=== PATIENT | female | born 1965 | race Caucasian/White ===

== ENCOUNTER → 2019-01-06 11:42 | Outpatient (CLI) | payer OTHER, SELFPAY ==
--- NOTE | 2019-01-06 11:52 | XR_ITS ---
XR foot wt bearing LT 3V HISTORY: ITS.REASON: pain ORDERING PHYSICIAN: Taniya May DPM PATIENT AGE: 53 years COMPARISON: None FINDINGS: No fracture or dislocation. Mild pes planus. Small calcaneal spur. No lytic or blastic change. Minimal osteoarthritic change first MTP joint. IMPRESSION: Mild pes planus with minimal degenerative change first MTP joint
--- NOTE | 2019-01-06 11:52 | XR_ITS ---
XR foot wt bearing RT 3V HISTORY: ITS.REASON: pain ORDERING PHYSICIAN: Taniya May DPM PATIENT AGE: 53 years COMPARISON: None FINDINGS: There is mild pes planus. Moderate osteoarthritic changes are present at the first MTP joint with spurring along the distal aspect of the first metatarsal. Small calcaneal spur. Enthesophyte at the Achilles insertion. 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
== END ==
PROVIDERS: PCP Internal Medicine; Visit Provider Podiatrist
DX: M79.672 Pain in left foot (principal); M79.671 Pain in right foot
CPT/HCPCS: 73630

== ENCOUNTER → 2019-01-13 10:10 | Outpatient (CLI) | payer OTHER, SELFPAY ==
[2019-01-13 10:46] LABS: Basophils # 0.1 K/mm3 (0-0.2); Basophils % 1.1 % (0.1-2.0); Eosinophils # 0.2 K/mm3 (0.0-0.4); Eosinophils % 3.4 % (0.1-12.0); Hematocrit 43.6 % (37.0-47.0); Hemoglobin 14.4 g/dL (12.2-16.2); Lymphocytes # 2.2 K/mm3 (0.7-4.5); Lymphocytes % 32.8 % (10-50); Mean Corpuscular Hemoglobin 29.8 pg (27.0-31.2); Mean Corpuscular Volume 90.1 fl (81-99); Monocytes # 0.4 K/mm3 (0.1-1.0); Monocytes % 5.3 % (1.7-9.3); Neutrophils # 3.8 K/mm3 (1.8-7.8); Neutrophils % 57.3 % (37.0-80.0); Platelet Count 339 K/mm3 (142-424); Red Blood Count 4.84 M/mm3 (4.20-5.40); Red Cell Distribution Width 13.7 % (11.5-17.5); White Blood Count 6.6 K/mm3 (4.8-10.8)
[2019-01-13 11:32] LABS: Alanine Aminotransferase 38 U/L (12-78); Albumin/Globulin Ratio 1.1 (1.1-1.8); Alkaline Phosphatase 88 U/L (46-116); Anion Gap 13.7 mEq/L (5-15); Aspartate Amino Transferase 13 U/L (15-37); Bilirubin,Total 0.5 mg/dL (0.2-1.0); Blood Urea Nitrogen 14 mg/dL (7-18); Calcium 9.3 mg/dL (8.5-10.1); Carbon Dioxide 27 mmol/L (21.0-32.0); Chloride 104 mmol/L (98-107); Estimated Glomerular Filt Rate 74 ml/min (>60); GFR (African American) 90 ML/MIN (>60); Globulin 3.7 gm/dl (1.3-3.2); Glucose 99 mg/dL (74-106); Potassium 3.7 mmoL/L (3.5-5.1); Sodium 141 mmol/L (136-145); Total Protein,Serum 7.7 gm/dL (6.4-8.2)
[2019-01-13 11:35] LABS: Erythrocyte Sedimentation Rate 16 mm/hr (0-30)
[2019-01-13 15:42] LABS: C-Reactive Protein < 0.2 mg/L (0.0-0.9)
== END ==
PROVIDERS: Visit Provider Podiatrist
DX: M79.671 Pain in right foot (principal); L97.511 Non-pressure chronic ulcer of other part of right foot limited to breakdown of skin; M20.21 Hallux rigidus, right foot; Q82.5 Congenital non-neoplastic nevus
CPT/HCPCS: 36415; 80053; 85025; 85651; 86140

== ENCOUNTER → 2019-01-23 13:15 | Outpatient (CLI) | payer OTHER, SELFPAY ==
[2019-01-23 14:36] LABS: Erythrocyte Sedimentation Rate 11 mm/hr (0-30)
[2019-01-23 17:00] LABS: Uric Acid 4.7 mg/dL (2.6-7.2)
[2019-01-25 09:13] LABS: RA Latex Turbid. <10.0 IU/mL (0.0-13.9)
[2019-01-25 21:00] LABS: Antinuclear Antibodies, IFA Positive (.)
== END ==
PROVIDERS: Visit Provider Podiatrist
DX: M79.671 Pain in right foot (principal)
CPT/HCPCS: 36415; 84550; 85651; 86038; 86431

== ENCOUNTER → 2019-01-27 08:44 | Outpatient (CLI) | payer OTHER, SELFPAY ==
--- NOTE | 2019-01-27 08:47 | MR_ITS ---
MR foot RT wo/w con CLINICAL INDICATION: Ulcer on second toe lateral aspect ITS.REASON: PAIN AND ULCER ON RT FOOT ORDERING PHYSICIAN: Taniya May DPM PATIENT AGE: 53 years Comparison: 01/06/2019 TECHNIQUE: Routine multiplanar multiecho sequences are performed without and with gadolinium enhancement FINDINGS: Is mild generalized motion artifact which does obscure fine detail. No convincing evidence of osteomyelitis of the toes. No abscess or abnormal fluid collection. There are osteoarthritic changes of the tarsal bones. Small amount fluid is present in lateral aspect of the calcaneal cuboid joint. Small amount fluid is also present along the posterior talocalcaneal joint. There is increased T2 signal involving the distal and medial aspect of the fibula at the talofibular joint region. This does show some contrast enhancement. Etiology of this is uncertain No other significant anomalies are evident. IMPRESSION: 1. No evidence of osteomyelitis of the toes. 2. Mild osteoarthritic changes of the midfoot with small amount fluid along the talocalcaneal joint space posteriorly and the calcaneocuboid joint space laterally. 3. Increased T2 signal with enhancement involving the distal fibula medially. This area measures approximately 1.6 x 0.8 cm. Etiology is indeterminate may be due to an area of inflammation or infection. Neoplasm felt to be less likely but not entirely excluded. Consider radiographic correlation for further evaluation.
--- NOTE | 2019-01-27 09:51 | HMH.ITSHM ---
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 []ASPIRIN BUPROPION VERAPAMIL TRIAMTERENE
== END ==
PROVIDERS: PCP Internal Medicine; Visit Provider Podiatrist
DX: L97.511 Non-pressure chronic ulcer of other part of right foot limited to breakdown of skin (principal)
CPT/HCPCS: 73720; A9576

== ENCOUNTER → 2019-02-27 09:56 | Outpatient (CLI) | payer OTHER, SELFPAY ==
--- NOTE | 2019-02-27 09:58 | US_ITS ---
US extremity RT limited CLINICAL INDICATION: Swelling of the second toe ORDERING PHYSICIAN: Taniya May DPM PATIENT AGE: 53 years Comparison: None FINDINGS: The patient was scheduled for fine-needle last perforation under sonographic guidance for possible nodule involving the medial and plantar aspect of the second toe. The patient reports that the swelling has decreased since the prior MRI which showed the possible nodule. Ultrasound is performed of the second toe showing mild diffuse soft tissue swelling with diffuse increase vascularity but no definite nodule. Therefore, fine-needle aspiration was not performed. No abscess or abnormal fluid collection IMPRESSION: 1. No discrete nodule evident by ultrasound. 2. Mild diffuse soft tissue swelling with increased vascularity of the second toe suggesting hemangiomatous involvement
== END ==
PROVIDERS: PCP Internal Medicine; Visit Provider Podiatrist
DX: L97.511 Non-pressure chronic ulcer of other part of right foot limited to breakdown of skin (principal); D49.2 Neoplasm of unspecified behavior of bone, soft tissue, and skin
CPT/HCPCS: 76882

== ENCOUNTER 2021-04-12 14:32 | Inpatient (IN) | payer OTHER, SELFPAY ==
[2021-04-12 14:33] VITALS: BP 125/61; PULSE 114; RESP 18; TEMP 37.6; O2SAT 96; BMI 38.0
--- NOTE | 2021-04-12 14:49 | CT_ITS ---
PROCEDURE: CT ABDOMEN PELVIS W CON CLINICAL INDICATION: PAIN Lower abdominal pain with nausea COMPARISON: No exams were available for comparison TECHNIQUE: IV Contrast: 75ML Isovue 370 Oral Contrast None Axial images obtained with sagittal and coronal reformats. All CT scans at the facility use one or more dose reduction, viz: automated exposure control, ma/kV adjustment per patient size (including targeted exams where dose is matched to indication, i.e. head), or iterative reconstruction technique. FINDINGS: LOWER THORAX: 7 mm fissural nodule present in the right minor fissure. There are atelectatic changes in the lung bases. There is a 5 mm nodular opacity in the right lung base medially. A small lymph node is present anterior to the left hepatic lobe superiorly. ABDOMEN & PELVIS: Fatty liver. There is a small hyperdense nodule along the anterior aspect of the left hepatic lobe at approximately 8 mm. Mild hepatomegaly at 25 cm transverse slight increased density is present within the gallbladder possibly due to some underlying sludge. Borderline splenomegaly at 13 cm. The adrenal glands have an unremarkable appearance. There is diffuse pancreatic atrophy. Superior to the head of the pancreas posterior to the antrum of the stomach there is a asymmetric area of soft tissue prominence which is contiguous with the caudate lobe of the liver and may then represent some hypertrophy of the liver with fatty sparing. Cannot exclude the possibility of a mass in this region. MRI of the abdomen without and with gadolinium enhancement with hemangioma protocol suggested. This area measures 2.9 cm. There is a 7 mm nonobstructing stone in the lower pole of the left kidney. 4 mm cyst is present in the right kidney. No ureteral calculi. No hydronephrosis. There is diffuse small bowel dilatation beginning in the jejunum and extending distally to the right lower quadrant region where there is a apparent mass at thickened small bowel with some slight increased density within the mesenteric fat. A normal appendix is not identified. There is diffuse colonic diverticulosis. There is stranding of the pericolic fat in the right lower quadrant with a small amount of extra colic gas. There is an air-fluid level with a collection measuring approximately 4 x 3 cm in this region suspicious for a small abscess. Repeat exam with both IV and oral contrast is suggested. The uterus is enlarged with a lobulated contour with areas of coarse calcification consistent with fibroid involvement. No distal free air is evident. There is a small amount fluid in the left pericolic gutter No acute bony findings are apparent. IMPRESSION: 1. There is diffuse haziness of the peritoneal fat in the mid and lower abdomen. There is diffuse colonic diverticulosis with thickening of the sigmoid colon in the right mid lower pelvic region and stranding of the pericolic fat with a small amount loculated extra colic gas at this region along with a 3 x 4 cm fluid collection with air-fluid level consistent with acute diverticulitis with local contained perforation and a small Aletha diverticular abscess. Suggest repeat exam with both IV and oral contrast for confirmation of these findings. Multiple unopacified bowel loops are present which could obscure or mimic pathology. 2. Suspect partial small bowel obstruction. The small bowel is dilated to the region of the inflammatory changes in the right lower quadrant. There is fluid and gas within the large bowel. Ileus is also consideration. There are thickened small bowel loops in the right lower quadrant adjacent to the inflammatory process. 3. The appendix is not clearly delineated. 4. Apparent mass
[2021-04-12 14:51] LABS: Microscopic, Urine URINE MICROSCOPIC (MICROSCOPIC)
[2021-04-12 14:55] LABS: Appearance,Urine SL CLOUDY (Clear); Blood, Urine TRACE-I (Negative); Color,Urine ORANGE (Yellow); Glucose,Urine (UA) Negative (Negative); Ketones,Urine 1+ (Negative); Leukocyte Esterase,Urine Negative (Negative); Nitrate,Urine Negative (Negative); Protein,Urine 3+ (Negative); Specific Gravity, Urine >= 1.030 (1.005-1.030)
[2021-04-12 15:02] LABS: Alanine Aminotransferase 24 U/L (12-78); Albumin Level 4.2 g/dl (3.5-5.0); Albumin/Globulin Ratio 1.1 (1.1-1.8); Alkaline Phosphatase 114 U/L (38-126); Aspartate Amino Transferase 20 U/L (14-36); Bilirubin,Total 1.3 mg/dl (0.2-1.3); Blood Urea Nitrogen 22 mg/dl (7-17); Calcium 9.1 mg/dl (8.4-10.2); Carbon Dioxide 31 mmol/L (22.0-30.0); Creatinine Clearance Estimated 89 mL/min (50-200); Estimated Glomerular Filt Rate 57 ml/min (>60); GFR (African American) 69 ML/MIN (>60); Globulin 3.7 g/dL (1.3-3.2); Glucose 146 mg/dl (74-100); Lipase 13 U/L (23-300); Potassium 3.2 mmoL/L (3.5-5.1); Sodium 141 mmol/L (136-145); Total Protein,Serum 7.9 g/dl (6.3-8.2)
[2021-04-12 15:05] LABS: Bilirubin,Urine 1+ (Negative)
[2021-04-12 15:06] LABS: Bacteria,Urine Trace /lpf; Squamous Epithelial Cell,Urine Occasional #/hpf (0-5); WBC,Urine Occasional #/hpf (0-3)
[2021-04-12 15:09] LABS: Anion Gap 14.2 mEq/L (5-15); Chloride 99 mmol/L (98-107)
[2021-04-12 15:30] VITALS: BP 122/75; PULSE 100
--- NOTE | 2021-04-12 15:30 | HMH.EDGENADL ---
ED Disposition Clinical Impression: Acute diverticulitis, Ileus Abdominal mass Qualifiers: Abdominal location: epigastric Qualified Code(s): R19.06 - Epigastric swelling, mass or lump Disposition: Still a Patient Condition on Discharge: Fair Instructions: DI for Acute Abdominal Pain Referrals: Darnell Zimmerman [Primary Care Provider] - - Critical Care Critical Care Time: No Attestation: On 04/12/21, the high probability of a clinically significant, sudden or life threatening deterioration of the following system(s) required my full and direct attention, intervention and personal management. The time I documented below is in addition to time spent performing reported procedures but includes the following listed in this critical care notation. Medical Decision Making - Medical Records Medical records reviewed: Yes: I reviewed the patient's medical records. - [place] Inquiry Pt receiving controlled substance: No Vital Signs: 04/12/21 14:33 Temperature 99.7 F H Temperature Source Oral Pulse Rate [Radial] 114 H Respiratory Rate 18 Blood Pressure [Right Arm] 125/61 Blood Pressure Mean [Right Arm] 82 Blood Pressure Position [Right Arm] Sitting 02 Sat by Pulse Oximetry 96 Oxygen Delivery Method Room Air - Lab Data Lab Results 04/12/21 14:41: Urine Color [place], Urine Appearance Sl cloudy, Urine pH 6.0, Ur Specific [place] >= 1.030, Urine Protein 3+, Urine Glucose (UA) Negative, Urine Ketones 1+, Urine Blood Trace-i, Urine Nitrate Negative, Urine Bilirubin 1+ A, Urine Urobilinogen 1.0, Ur Leukocyte Esterase Negative, Urine RBC 5-10, Urine WBC Occasional, Ur Squamous Epith Cells Occasional, Urine Bacteria Trace 04/12/21 14:45: WBC 20.8 H*, RBC 5.15, Hgb 14.9, Hct 45.4, MCV 88.2, MCH 29.0, MCHC 32.9, RDW 14.1, Plt Count 332, MPV 8.2, Neut % (Auto) 89.7 H, Lymph % (Auto) 7.2 L, [place] % (Auto) 2.6, Eos % (Auto) 0.2, Baso % (Auto) 0.3, Neut # (Auto) 18.6 H, Lymph # (Auto) 1.5, [place] # (Auto) 0.5, Eos # (Auto) 0.0, Baso # (Auto) 0.1, Total Counted 100, Neutrophils % (Manual) 85 H, Lymphocytes % (Manual) 12, Monocytes % (Manual) 3, Platelet Estimate Normal, Hypochromasia 1+ 04/12/21 14:45: Sodium 141, Potassium 3.2 L, Chloride 99, Carbon Dioxide 31 H, Anion Gap 14.2, BUN 22 H, Creatinine 1.00, Estimated Creat Clear 89, Estimated GFR 57 L, Est GFR ( Amer) 69, Glucose 146 H, Calcium 9.1, Total Bilirubin 1.3, AST 20, ALT 24, Alkaline Phosphatase 114, Total Protein 7.9, Albumin 4.2, Globulin 3.7 H, Albumin/Globulin Ratio 1.1 04/12/21 14:45: Lipase 13 L Result diagrams: 04/12/21 14:45 04/12/21 14:45 Orders (Tests/Meds): ED MEDICATIONS Discontinued Medications Generic Name Dose Route Start Last Admin Trade Name Freq PRN Reason Stop Dose Admin Hydromorphone HCl 1 mg 04/12/21 15:05 04/12/21 15:06 Hydromorphone 2mg/Ml Syringe IV 04/12/21 15:06 1 mg ONCE ONE Administration Sodium Chloride 1,000 mls @ 999 mls/hr 04/12/21 15:00 04/12/21 14:55 Sod Chlor 0.9% 1000ml Bag IV 04/12/21 16:00 999 mls/hr .Q1H1M [place] Administration Iopamidol 75 ml 04/12/21 16:00 04/12/21 16:01 Iopamidol-370 (76%);100ml Bottle IV 04/12/21 16:01 75 ml ONCE ONE Administration Ondansetron HCl 4 mg 04/12/21 14:50 04/12/21 14:55 Ondansetron 4mg/2ml Vial IV 04/12/21 14:51 4 mg ONCE ONE Administration Sodium Chloride 10 ml 04/12/21 16:00 04/12/21 16:01 Sodium Chloride 0.9% 10ml Syr (Rad Only) IV 04/12/21 16:01 10 ml ONCE ONE Administration ORDERS Category Date Time Status Covid-19 Nasal PCR ([facility]) Routine Lab 04/12/21 17:09 Ordered - CT Data CT Scan: Abdomen Time Received: 16:[address] Reviewed: Yes: I have viewed the radiologist's interpretation Preliminary Findings: Abnormal Findings Narrative: Acute diverticulitis with 3 x 4 collection of contained abscess along the sigmoid colon. Partial small bowel obstruction versus ileus with an undifferentiated mass near the pancreatic h
[2021-04-12 15:35] LABS: Basophils # 0.1 K/mm3 (0-0.2); Basophils % 0.3 % (0.1-2.0); Eosinophils % 0.2 % (0.1-12.0); Hematocrit 45.4 % (37.0-47.0); Hemoglobin 14.9 g/dL (12.2-16.2); Lymphocytes # 1.5 K/mm3 (0.7-4.5); Lymphocytes % 7.2 % (10-50); Mean Corpuscular HGB Conc 32.9 g/dL (31.8-35.4); Mean Corpuscular Volume 88.2 fl (81-99); Mean Platelet Volume 8.2 fl (7.4-10.4); Monocytes # 0.5 K/mm3 (0.1-1.0); Monocytes % 2.6 % (1.7-9.3); Neutrophils # 18.6 K/mm3 (1.8-7.8); Neutrophils % 89.7 % (37.0-80.0); Platelet Count 332 K/mm3 (142-424); Red Blood Count 5.15 M/mm3 (4.20-5.40); Red Cell Distribution Width 14.1 % (11.5-17.5); White Blood Count 20.8 K/mm3 (4.8-10.8)
[2021-04-12 15:41] LABS: MANUAL DIFFERENTIAL MANUAL DIFFERENTIAL (MANUAL DIFF)
[2021-04-12 16:13] LABS: Lymphocytes % 12 % (10-50); Monocytes % 3 % (2-9); Neutrophils % 85 % (42-76); Total Cells Counted 100
[2021-04-12 16:14] LABS: Hypochromasia 1+; Platelet Estimate Normal
[2021-04-12 16:30] VITALS: BP 127/61; PULSE 92
--- NOTE | 2021-04-12 16:52 | PC.NURSE ---
DR COPE PAGED
--- NOTE | 2021-04-12 16:54 | PC.NURSE ---
DR ZMAAN SPEAKING WITH DR COPE ,HE HAS AGREED TO ADMIT PT
[2021-04-12 17:00] VITALS: BP 119/61; PULSE 92; O2SAT 94
--- NOTE | 2021-04-12 17:11 | PC.NURSE ---
Dr Vazquez spoke with Dr Castellon for admission
--- NOTE | 2021-04-12 17:14 | PC.NURSE ---
bed assignment requested, room 209. all staff notified
[2021-04-12 17:44] LABS: Coronavirus 19, PCR Not Detected (NotDetected); Influenza A, PCR Not Detected (NotDetected); Influenza B, PCR Not Detected (NotDetected)
[2021-04-12 18:21] LABS: Lactic Acid 1.1 mmol/L (0.7-2.1)
--- NOTE | 2021-04-12 18:31 | PC.NURSE ---
REPORT CALLED TO FLOOR
--- NOTE | 2021-04-12 19:34 | PC.NURSE ---
This RN received report on pt. Pt isnt to floor yet at this time. Report was given to Cara Flores RN and Daron Lane RN.
[2021-04-12 19:40] VITALS: BP 121/78; PULSE 89; RESP 18; TEMP 36.9; O2SAT 95
--- NOTE | 2021-04-12 19:43 | PC.NURSE ---
PT ARRIVED TO FLOOR VIA W/C FROM ED W/STAFF AT 194
[2021-04-12 20:00] VITALS: BP 113/68; PULSE 102; RESP 16; TEMP 37.3; O2SAT 93; BMI 38.3
[2021-04-12 22:14] LABS: POC Glucose,Bedside 125 (70-110)
--- NOTE | 2021-04-12 23:36 | P.CONPHA_ITS ---
[facility] Pharmacy VTE Monitoring - Patient Demographics Admission date: 04/12/21 Report Date: 04/12/21 Time: 23:36 Allergies/Adverse Reactions: Patient Allergies ALLISON Inhibitors Allergy (Verified 02/17/19 15:03) Height: 1.55 m Weight: 92.079 kg Patient Problems: Current Active Problems Acute diverticulitis (Acute) Ileus (Acute) Abdominal mass (Acute) - VTE Risk Labs: VTE Related Lab Results Hgb 14.9 g/dL (12.2-16.2) 04/12/21 14:45 Hct 45.4 % (37.0-47.0) 04/12/21 14:45 Plt Count 332 K/mm3 (142-424) 04/12/21 14:45 BUN 22 mg/dl (7-17) H 04/12/21 14:45 Creatinine 1.00 mg/dl (0.52-1.04) 04/12/21 14:45 Estimated Creat Clear 89 mL/min (50-200) 04/12/21 14:45 Was VTE Risk Assessment Performed: Yes VTE Score: 1 VTE Risk Level: Very Low Risk Clinical Trial Participant: No - Prophylaxis VTE Prophylaxis Ordered?: Yes Types of VTE Prophylaxis: TEDS Knee High, Pharmacological Pharmacologic Type: Enoxaparin
--- NOTE | 2021-04-12 23:38 | HMH.PHAINT ---
verified home medication list using list from [facility] outpatient pharmacy
[2021-04-13] VITALS (8 sets, daily range): BP systolic 113–133; BP diastolic 62–87; PULSE 90–127; RESP 16–20; TEMP 36.8–39.1; O2SAT 90–96; BMI 37.8
--- NOTE | 2021-04-13 05:04 | PC.NURSE ---
Patient is alert & oriented x4. Patient has been pleasant this shift. She has rested well. She had complaints of abdominal pain upon coming to the floor around 2130 and was treated per medication order. Patient bowel sounds are active and reports diarrhea the previous day. At 0400 the SRNA reported a temperature of 102 and patient was tachycardic with a HR of 127. Patient was given Tylenol per orders. Patient temperature rechecked to read 100.2. Call light within reach, will continue to monitor.
[2021-04-13 06:17] LABS: POC Glucose,Bedside 124 (70-110)
--- NOTE | 2021-04-13 07:12 | HMH.GSCON ---
*Admission Date: 04/12/21 *Reason for consult:: Diverticulitis and ileus *History of present illness: Patient is a 55-year-old white female. She has no prior history of diverticulitis. She states that on 04/10/2021 she developed relatively diffuse lower abdominal pain. This persisted and progressed in severity. She therefore presented to the emergency department yesterday afternoon. Work-up revealed leukocytosis. She underwent CT scan of the abdomen and pelvis which revealed findings most consistent with diverticulitis with 3 cm abscess. She also had findings of ileus. Of note, there was an incidental finding of mass superior to the pancreatic head which may emanate from the caudate lobe of the liver. Nonemergent MRI was suggested by radiology. Since admission patient states that she does feel somewhat better. Review of Systems - Review of Systems Review of systems:: pertinent systems reviewed and negative unless documented below [facility] History I have reviewed the patient's past medical history: Yes Medical History: Reports:: Hypertension *Have you ever received a pneumonia vaccine?: No *Have you received a flu vaccine this season?: Yes Other Medical History: Reports: Sinus Problems Laterality Cases: Bilateral: Tonsillectomy Other Surgeries: Yes: Sinus Surgery - *Social History Smoking Status: Never smoker Alcohol Intake: never Alcohol Intake Frequency:: other *Occupational Status:: retired *Travel in the last 8 weeks: None Family Hx:: Hypertension Meds Home Medications Medication Instructions Recorded Confirmed Type aspirin 81 mg tablet,delayed 81 mg PO DAILY 01/13/19 04/12/21 History release bupropion HCl 150 mg tablet,12 hr 150 mg PO BID #180 each 01/13/19 04/12/21 History sustained-release Naproxen [Naproxen 500mg tab] 500 mg PO BIDP PRN 04/12/21 04/12/21 History Triamterene/Hydrochlorothiazid 1 each PO DAILY 04/12/21 04/12/21 History [Dyazide 37.5-25 Capsule] Verapamil HCl [Verapamil ER] 240 mg PO DAILY 04/12/21 04/12/21 History Allergies Allergy/AdvReac Type Severity Reaction Status Date / Time ALLISON Inhibitors Allergy Verified 02/17/19 15:03 Exam Vital signs and Labs for Last 24 Hours: Temp Pulse Resp BP Pulse Ox 100.2 F H 127 H 16 130/76 90 L 04/13/21 05:09 04/13/21 04:00 04/13/21 04:00 04/13/21 04:00 04/13/21 04:00 Laboratory Results - last 24 hr 04/12/21 14:41: Urine Color [place], Urine Appearance Sl cloudy, Urine pH 6.0, Ur Specific [place] >= 1.030, Urine Protein 3+, Urine Glucose (UA) Negative, Urine Ketones 1+, Urine Blood Trace-i, Urine Nitrate Negative, Urine Bilirubin 1+ A, Urine Urobilinogen 1.0, Ur Leukocyte Esterase Negative, Urine RBC 5-10, Urine WBC Occasional, Ur Squamous Epith Cells Occasional, Urine Bacteria Trace 04/12/21 14:45: WBC 20.8 H*, RBC 5.15, Hgb 14.9, Hct 45.4, MCV 88.2, MCH 29.0, MCHC 32.9, RDW 14.1, Plt Count 332, MPV 8.2, Neut % (Auto) 89.7 H, Lymph % (Auto) 7.2 L, [place] % (Auto) 2.6, Eos % (Auto) 0.2, Baso % (Auto) 0.3, Neut # (Auto) 18.6 H, Lymph # (Auto) 1.5, [place] # (Auto) 0.5, Eos # (Auto) 0.0, Baso # (Auto) 0.1, Total Counted 100, Neutrophils % (Manual) 85 H, Lymphocytes % (Manual) 12, Monocytes % (Manual) 3, Platelet Estimate Normal, Hypochromasia 1+ 04/12/21 14:45: Sodium 141, Potassium 3.2 L, Chloride 99, Carbon Dioxide 31 H, Anion Gap 14.2, BUN 22 H, Creatinine 1.00, Estimated Creat Clear 89, Estimated GFR 57 L, Est GFR ( Amer) 69, Glucose 146 H, Calcium 9.1, Total Bilirubin 1.3, AST 20, ALT 24, Alkaline Phosphatase 114, Total Protein 7.9, Albumin 4.2, Globulin 3.7 H, Albumin/Globulin Ratio 1.1 04/12/21 14:45: Lipase 13 L 04/12/21 17:20: Lactate 1.1 04/12/21 17:27: SARS-CoV-2 (PCR) Not detected, Influenza A Untype (PCR) Not detected, Influenza Type B (PCR) Not detected 04/12/21 22:05: POC Glucose 125 H 04/13/21 06:10: POC Glucose 124 H I & O for Last 24 hours: Intake & Output 04/10/21 04/11/21 04/12/21 04/13/21 11:59 11
[2021-04-13 07:15] LABS: Anion Gap 10.9 mEq/L (5-15); Blood Urea Nitrogen 25 mg/dl (7-17); Calcium 8.7 mg/dl (8.4-10.2); Carbon Dioxide 30 mmol/L (22.0-30.0); Chloride 104 mmol/L (98-107); Creatinine Clearance Estimated 89 mL/min (50-200); Estimated Glomerular Filt Rate 57 ml/min (>60); GFR (African American) 69 ML/MIN (>60); Glucose 138 mg/dl (74-100); Sodium 142 mmol/L (136-145)
[2021-04-13 07:17] LABS: Potassium 2.9 mmoL/L (3.5-5.1)
--- NOTE | 2021-04-13 07:21 | PC.NURSE ---
[place] from lab called with a critical potassium of 2.9 Name and verified x2 Dr. Castellon paged and waiting for call back.
[2021-04-13 07:55] LABS: Basophils # 0.1 K/mm3 (0-0.2); Basophils % 0.3 % (0.1-2.0); Eosinophils % 0.1 % (0.1-12.0); Hematocrit 42.5 % (37.0-47.0); Hemoglobin 13.6 g/dL (12.2-16.2); Lymphocytes # 1.2 K/mm3 (0.7-4.5); Lymphocytes % 6.6 % (10-50); Mean Corpuscular Hemoglobin 28.5 pg (27.0-31.2); Mean Corpuscular Volume 89.2 fl (81-99); Mean Platelet Volume 8.3 fl (7.4-10.4); Monocytes # 0.7 K/mm3 (0.1-1.0); Monocytes % 3.7 % (1.7-9.3); Neutrophils # 16.4 K/mm3 (1.8-7.8); Neutrophils % 89.2 % (37.0-80.0); Platelet Count 295 K/mm3 (142-424); Red Blood Count 4.77 M/mm3 (4.20-5.40); Red Cell Distribution Width 14.1 % (11.5-17.5); White Blood Count 18.4 K/mm3 (4.8-10.8)
[2021-04-13 08:20] LABS: MANUAL DIFFERENTIAL MANUAL DIFFERENTIAL (MANUAL DIFF)
[2021-04-13 08:41] LABS: Lymphocytes % 7 % (10-50); Monocytes % 5 % (2-9); Neutrophils % 88 % (42-76); Nucleated Red Blood Cells 1; Total Cells Counted 100
[2021-04-13 08:42] LABS: Hypochromasia 1+; Macrocytosis 1+; Platelet Estimate Normal
[2021-04-13 12:06] LABS: Amylase 40 U/L (30-110); Lipase 11 U/L (23-300)
--- NOTE | 2021-04-13 12:30 | HMH.HP ---
*Admission Date: 04/12/21 *Chief complaint: Abd Pain *History of present illness: 55-year-old female who presents with diffuse abdominal pain nausea vomiting and diarrhea for several days. Patient is white blood cell count greater than 20,[address] scan demonstrates concern for contained perforation diverticulitis of the sigmoid colon. She also has partial small bowel stricture versus ileus and with no history of hernia or abdominal surgeries suspect that this is an ileus due to the inflammation. She also has evidence of a mass near the head of the pancreas which will need further imaging. This was discussed with Dr. Fernandez who agreed to consult surgically with medical admission and recommended conservative management at this time with bowel rest and IV Zosyn. Patient was discussed with Dr. Castellon who agreed to admit the patient for further management (Per Dr. Vazquez). 04/12/21 Abd/Pelvis CT: FINDINGS: LOWER THORAX: 7 mm fissural nodule present in the right minor fissure. There are atelectatic changes in the lung bases. There is a 5 mm nodular opacity in the right lung base medially. A small lymph node is present anterior to the left hepatic lobe superiorly. ABDOMEN & PELVIS: Fatty liver. There is a small hyperdense nodule along the anterior aspect of the left hepatic lobe at approximately 8 mm. Mild hepatomegaly at 25 cm transverse slight increased density is present within the gallbladder possibly due to some underlying sludge. Borderline splenomegaly at 13 cm. The adrenal glands have an unremarkable appearance. There is diffuse pancreatic atrophy. Superior to the head of the pancreas posterior to the antrum of the stomach there is a asymmetric area of soft tissue prominence which is contiguous with the caudate lobe of the liver and may then represent some hypertrophy of the liver with fatty sparing. Cannot exclude the possibility of a mass in this region. MRI of the abdomen without and with gadolinium enhancement with hemangioma protocol suggested. This area measures 2.9 cm. There is a 7 mm nonobstructing stone in the lower pole of the left kidney. 4 mm cyst is present in the right kidney. No ureteral calculi. No hydronephrosis. There is diffuse small bowel dilatation beginning in the jejunum and extending distally to the right lower quadrant region where there is a apparent mass at thickened small bowel with some slight increased density within the mesenteric fat. A normal appendix is not identified. There is diffuse colonic diverticulosis. There is stranding of the pericolic fat in the right lower quadrant with a small amount of extra colic gas. There is an air-fluid level with a collection measuring approximately 4 x 3 cm in this region suspicious for a small abscess. Repeat exam with both IV and oral contrast is suggested. The uterus is enlarged with a lobulated contour with areas of coarse calcification consistent with fibroid involvement. No distal free air is evident. There is a small amount fluid in the left pericolic gutter No acute bony findings are apparent. IMPRESSION: 1. There is diffuse haziness of the peritoneal fat in the mid and lower abdomen. There is diffuse colonic diverticulosis with thickening of the sigmoid colon in the right mid lower pelvic region and stranding of the pericolic fat with a small amount loculated extra colic gas at this region along with a 3 x 4 cm fluid collection with air-fluid level consistent with acute diverticulitis with local contained perforation and a small Aletha diverticular abscess. Suggest repeat exam with both IV and oral contrast for confirmation of these findings. Multiple unopacified bowel loops are present which could obscure or mimic pathology. 2. Suspect partial small bowel obstruction. The small bowel is dilated to the region of the inflammatory changes in the right lower quadrant. There is fluid and gas within
[2021-04-13 14:14] LABS: POC Glucose,Bedside 112 (70-110)
--- NOTE | 2021-04-13 14:17 | PC.NURSE ---
patient has done okay this shift. some complaints of pain and has been medicated per mar. some nausea this morning that resolved after zofran. she has been using swabs to wet mouth, family has been in and out. has been resting. remains tender to abdomen. no other complaints. noted. vitals stable
[2021-04-13 22:39] LABS: POC Glucose,Bedside 132 (70-110)
[2021-04-14] VITALS (9 sets, daily range): BP systolic 110–129; BP diastolic 67–74; PULSE 63–92; RESP 16–18; TEMP 36.3–37.1; O2SAT 91–96; BMI 37.8
--- NOTE | 2021-04-14 04:21 | PC.NURSE ---
pt alert and oriented. vss. iv patent and infusing. pt states pain has improved some since admission. call light in reach. will continue to monitor
[2021-04-14 05:00] LABS: POC Glucose,Bedside 141 (70-110)
[2021-04-14 05:50] LABS: Basophils % 0.2 % (0.1-2.0); Hematocrit 37.7 % (37.0-47.0); Lymphocytes % 5.6 % (10-50); Mean Corpuscular HGB Conc 32.4 g/dL (31.8-35.4); Mean Corpuscular Hemoglobin 29.2 pg (27.0-31.2); Mean Corpuscular Volume 90.2 fl (81-99); Mean Platelet Volume 8.1 fl (7.4-10.4); Monocytes # 0.5 K/mm3 (0.1-1.0); Monocytes % 2.6 % (1.7-9.3); Neutrophils % 91.5 % (37.0-80.0); Platelet Count 276 K/mm3 (142-424); Red Blood Count 4.18 M/mm3 (4.20-5.40); Red Cell Distribution Width 14.3 % (11.5-17.5); White Blood Count 17.5 K/mm3 (4.8-10.8)
[2021-04-14 05:53] LABS: MANUAL DIFFERENTIAL MANUAL DIFFERENTIAL (MANUAL DIFF)
[2021-04-14 05:56] LABS: Anion Gap 10.2 mEq/L (5-15); Blood Urea Nitrogen 26 mg/dl (7-17); Calcium 8.7 mg/dl (8.4-10.2); Carbon Dioxide 28 mmol/L (22.0-30.0); Chloride 109 mmol/L (98-107); Creatinine Clearance Estimated 111 mL/min (50-200); Estimated Glomerular Filt Rate 74 ml/min (>60); GFR (African American) 89 ML/MIN (>60); Glucose 155 mg/dl (74-100); Hemoglobin 12.2 g/dL (12.2-16.2); Potassium 4.2 mmoL/L (3.5-5.1); Sodium 143 mmol/L (136-145)
[2021-04-14 06:29] LABS: Hypochromasia 1+; Lymphocytes % 1 % (10-50); Monocytes % 3 % (2-9); Neutrophils % 96 % (42-76); Platelet Estimate Normal; Total Cells Counted 100
--- NOTE | 2021-04-14 07:22 | HMH.GSPN ---
Subjective Patient reports: feels better, still having pain, pain is less Progress Note: A&P (1) Abdominal mass Status: Acute (2) Acute diverticulitis Status: Acute Assessment and plan: Overall, doing well with current antibiotic therapy. Continue antibiotics Clear liquids cautiously (no carbonation) (3) Ileus Status: Acute (4) Leukocytosis Status: Acute (5) Hypokalemia Status: Acute Exam Vital signs and Labs for Last 24 Hours: Temp Pulse Resp BP Pulse Ox 98 F 76 18 128/72 95 04/14/21 04:00 04/14/21 04:00 04/14/21 04:47 04/14/21 04:00 04/14/21 04:00 Laboratory Results - last 24 hr 04/13/21 06:35: WBC 18.4 H, RBC 4.77, Hgb 13.6, Hct 42.5, MCV 89.2, MCH 28.5, MCHC 32.0, RDW 14.1, Plt Count 295, MPV 8.3, Neut % (Auto) 89.2 H, Lymph % (Auto) 6.6 L, [place] % (Auto) 3.7, Eos % (Auto) 0.1, Baso % (Auto) 0.3, Neut # (Auto) 16.4 H, Lymph # (Auto) 1.2, [place] # (Auto) 0.7, Eos # (Auto) 0.0, Baso # (Auto) 0.1, Total Counted 100, Neutrophils % (Manual) 88 H, Lymphocytes % (Manual) 7 L, Monocytes % (Manual) 5, Nucleated RBCs 1, Platelet Estimate Normal, Hypochromasia 1+, Macrocytosis 1+ 04/13/21 06:35: Amylase 40, Lipase 11 L 04/13/21 13:03: POC Glucose 112 H 04/13/21 19:56: POC Glucose 132 H 04/14/21 04:49: POC Glucose 141 H 04/14/21 05:28: WBC 17.5 H, RBC 4.18 L, Hgb 12.2 D, Hct 37.7, MCV 90.2, MCH 29.2, MCHC 32.4, RDW 14.3, Plt Count 276, MPV 8.1, Neut % (Auto) 91.5 H, Lymph % (Auto) 5.6 L, [place] % (Auto) 2.6, Eos % (Auto) 0.0 L, Baso % (Auto) 0.2, Neut # (Auto) 16.0 H, Lymph # (Auto) 1.0, [place] # (Auto) 0.5, Eos # (Auto) 0.0, Baso # (Auto) 0.0, Total Counted 100, Neutrophils % (Manual) 96 H, Lymphocytes % (Manual) 1 L, Monocytes % (Manual) 3, Platelet Estimate Normal, RBC Morphology Not Reportable, Hypochromasia 1+ 04/14/21 05:28: Sodium 143, Potassium 4.2 D, Chloride 109 H, Carbon Dioxide 28, Anion Gap 10.2, BUN 26 H, Creatinine 0.80, Estimated Creat Clear 111, Estimated GFR 74, Est GFR ( Amer) 89 D, Glucose 155 H, Calcium 8.7 I & O for Last 24 hours: Intake & Output 04/11/21 04/12/21 04/13/21 04/14/21 11:59 11:59 11:59 11:59 Intake Total 0 2138 Balance 0 / 0 2138 Weight 200 lb 4 oz 200 lb 1 oz - Constitutional no acute distress - *Routine Respiratory Exam Absent: respiratory distress - *Routine Cardiovascular Exam Present: RRR - *Routine Abdominal Exam Present: soft, tenderness ((Improved))
--- NOTE | 2021-04-14 09:21 | HMH.ACPN2 ---
Internal Medicine - PN: Subj *Date: 04/14/21 *Time: 13:06 Interval history: 55-year-old female patient sitting up in bed resting quietly, at bedside. She reports she has less abdominal tenderness today than yesterday and is actually feeling a little better. We will advance to clears today and see how she tolerates. Exam Vital signs and Labs for Last 24 Hours: Temp Pulse Resp BP Pulse Ox 98.5 F 74 18 124/74 91 L 04/14/21 08:00 04/14/21 08:00 04/14/21 08:00 04/14/21 08:00 04/14/21 08:00 Laboratory Results - last 24 hr 04/13/21 06:35: Amylase 40, Lipase 11 L 04/13/21 13:03: POC Glucose 112 H 04/13/21 19:56: POC Glucose 132 H 04/14/21 04:49: POC Glucose 141 H 04/14/21 05:28: WBC 17.5 H, RBC 4.18 L, Hgb 12.2 D, Hct 37.7, MCV 90.2, MCH 29.2, MCHC 32.4, RDW 14.3, Plt Count 276, MPV 8.1, Neut % (Auto) 91.5 H, Lymph % (Auto) 5.6 L, [place] % (Auto) 2.6, Eos % (Auto) 0.0 L, Baso % (Auto) 0.2, Neut # (Auto) 16.0 H, Lymph # (Auto) 1.0, [place] # (Auto) 0.5, Eos # (Auto) 0.0, Baso # (Auto) 0.0, Total Counted 100, Neutrophils % (Manual) 96 H, Lymphocytes % (Manual) 1 L, Monocytes % (Manual) 3, Platelet Estimate Normal, RBC Morphology Not Reportable, Hypochromasia 1+ 04/14/21 05:28: Sodium 143, Potassium 4.2 D, Chloride 109 H, Carbon Dioxide 28, Anion Gap 10.2, BUN 26 H, Creatinine 0.80, Estimated Creat Clear 111, Estimated GFR 74, Est GFR ( Amer) 89 D, Glucose 155 H, Calcium 8.7 I & O for Last 24 hours: Intake & Output 04/11/21 04/12/21 04/13/21 04/14/21 23:59 23:59 23:59 23:59 Intake Total 1174 / 1174 965 / 965 Balance 1174 / 1174 965 / 965 Weight 203 lb 200 lb 9.93 oz 200 lb 1 oz - Constitutional no acute distress - *Routine HEENT Exam Head: Present: normocephalic Eye: Present: EOMI ENT: Present: mucous membranes moist - *Routine Neck Exam Present: trachea midline. Absent: tracheal deviation - *Routine Respiratory Exam Present: CTA bilaterally. Absent: accessory muscle use - *Routine Cardiovascular Exam Present: RRR - *Routine Abdominal Exam Present: soft, normoactive bowel sounds, tenderness. Absent: firm Comments: Epigastric tenderness - *Routine Extremities Exam Present: full ROM, pulses intact. Absent: cyanosis, clubbing, edema, calf tenderness - *Routine Skin Exam Present: intact, dry, warm. Absent: cyanosis, erythema - *Routine Neurological Exam Present: alert, oriented X3. Absent: motor deficit, altered mental status - Routine Psychiatric Exam Present: normal affect, normal thought process. Absent: auditory hallucinations, visual hallucinations Assessment and Plan (1) Abdominal mass Status: Acute Qualifiers: Abdominal location: epigastric Qualified Code(s): R19.06 - Epigastric swelling, mass or lump Category: Medical Code(s): R19.00 - Intra-abdominal and pelvic swelling, mass and lump, unspecified site (2) Acute diverticulitis Status: Acute Category: Medical Code(s): K57.92 - Diverticulitis of intestine, part unspecified, without perforation or abscess without bleeding (3) Ileus Status: Acute Category: Medical Code(s): K56.7 - Ileus, unspecified (4) Leukocytosis Status: Acute Category: Medical Code(s): D72.829 - Elevated white blood cell count, unspecified (5) Hypokalemia Status: Acute Category: Medical Code(s): E87.6 - Hypokalemia - Assessment and plan all Dx Assessment and Plan for all problems:: Rounded with Dr. Castellon, all orders per Dr. Castellon: 1. We will advance diet to clears 2. We will continue current medical regimen
--- NOTE | 2021-04-14 19:54 | PC.NURSE ---
Pt has done well this shift. Ambulated in hallway this afternoon, tolerated activity well. Was medicated tonight for abdominal pain rating 7/10 and nausea, per MAR. Tolerating clear liquid tray, no complaints. Currently sitting up in bed visiting w .
[2021-04-14 20:46] LABS: POC Glucose,Bedside 124 (70-110)
[2021-04-15] VITALS (8 sets, daily range): BP systolic 109–128; BP diastolic 68–83; PULSE 60–70; RESP 16–20; TEMP 36.7–37.1; O2SAT 93–95; BMI 39.1
--- NOTE | 2021-04-15 03:48 | PC.NURSE ---
shift summary pt is alert and oriented X4. lung sounds are clear with sats maintained 90% or above on room air. pt has had no complaints. pt denies any pain, nausea, vomiting, or diarrhea. no acute changes will continue to monitor.
--- NOTE | 2021-04-15 07:18 | HMH.GSPN ---
Subjective Narrative: Patient states that she feels much better. She is tolerating clear liquids. She still does have some pain with ambulation. Progress Note: A&P (1) Abdominal mass Status: Acute (2) Acute diverticulitis Status: Acute (3) Ileus Status: Acute (4) Leukocytosis Status: Acute (5) Hypokalemia Status: Acute Assessment and Plan for All Diagnoses:: Continue current medical management for now. Exam Vital signs and Labs for Last 24 Hours: Temp Pulse Resp BP Pulse Ox 98.1 F 68 16 115/69 93 L 04/15/21 04:00 04/15/21 04:00 04/15/21 04:00 04/15/21 04:00 04/15/21 04:00 Laboratory Results - last 24 hr 04/14/21 17:50: POC Glucose 124 H I & O for Last 24 hours: Intake & Output 04/12/21 04/13/21 04/14/21 04/15/21 11:59 11:59 11:59 11:59 Intake Total 0 / 0 2259 / 2259 720 / 720 Balance 0 / 0 2259 / 2259 720 / 720 Weight 200 lb 4 oz 200 lb 1 oz 207 lb 3 oz Microbiology Reports for the Last 24 Hours: Microbiology 04/12/21 17:20 Blood Blood Culture - Preliminary NO GROWTH AFTER 48 HOURS 04/12/21 17:20 Blood Blood Culture - Preliminary NO GROWTH AFTER 48 HOURS - *Routine Abdominal Exam Present: soft Comments: Mild to moderate tenderness right lower quadrant.
[2021-04-15 07:36] LABS: Basophils % 0.2 % (0.1-2.0); Eosinophils % 0.1 % (0.1-12.0); Hematocrit 35.9 % (37.0-47.0); Hemoglobin 11.8 g/dL (12.2-16.2); Lymphocytes # 1.2 K/mm3 (0.7-4.5); Lymphocytes % 7.6 % (10-50); Mean Corpuscular HGB Conc 32.8 g/dL (31.8-35.4); Mean Corpuscular Hemoglobin 28.7 pg (27.0-31.2); Mean Corpuscular Volume 87.4 fl (81-99); Mean Platelet Volume 8.5 fl (7.4-10.4); Monocytes # 0.5 K/mm3 (0.1-1.0); Monocytes % 3.1 % (1.7-9.3); Neutrophils # 14.1 K/mm3 (1.8-7.8); Neutrophils % 89.1 % (37.0-80.0); Platelet Count 306 K/mm3 (142-424); Red Blood Count 4.11 M/mm3 (4.20-5.40); Red Cell Distribution Width 14.3 % (11.5-17.5); White Blood Count 15.8 K/mm3 (4.8-10.8)
[2021-04-15 07:38] LABS: MANUAL DIFFERENTIAL MANUAL DIFFERENTIAL (MANUAL DIFF)
[2021-04-15 07:52] LABS: Anion Gap 11.3 mEq/L (5-15); Blood Urea Nitrogen 26 mg/dl (7-17); Calcium 8.6 mg/dl (8.4-10.2); Carbon Dioxide 27 mmol/L (22.0-30.0); Chloride 107 mmol/L (98-107); Creatinine Clearance Estimated 115 mL/min (50-200); Estimated Glomerular Filt Rate 74 ml/min (>60); GFR (African American) 89 ML/MIN (>60); Glucose 116 mg/dl (74-100); Potassium 3.3 mmoL/L (3.5-5.1); Sodium 142 mmol/L (136-145)
[2021-04-15 08:09] LABS: Lymphocytes % 13 % (10-50); Monocytes % 3 % (2-9); Neutrophils % 84 % (42-76); Platelet Estimate Normal; RBC Morphology Normal; Total Cells Counted 100
--- NOTE | 2021-04-15 09:18 | HMH.ACPN2 ---
Internal Medicine - PN: Subj *Date: 04/15/21 *Time: 14:15 Interval history: 55-year-old female patient resting in bed quietly, at bedside. She reports she feels better today than yesterday abdomen less tender today. She does report flatus but no bowel movement. She reports she was not up in the room very much yesterday but will attempt to be up and ambulating more today. She is tolerating liquids without any nausea. White blood cell count trending down Exam Vital signs and Labs for Last 24 Hours: Temp Pulse Resp BP Pulse Ox 98.6 F 66 18 128/83 93 L 04/15/21 08:00 04/15/21 08:00 04/15/21 08:00 04/15/21 08:00 04/15/21 08:00 Laboratory Results - last 24 hr 04/14/21 17:50: POC Glucose 124 H 04/15/21 07:17: WBC 15.8 H, RBC 4.11 L, Hgb 11.8 L, Hct 35.9 L, MCV 87.4, MCH 28.7, MCHC 32.8, RDW 14.3, Plt Count 306, MPV 8.5, Neut % (Auto) 89.1 H, Lymph % (Auto) 7.6 L, [place] % (Auto) 3.1, Eos % (Auto) 0.1, Baso % (Auto) 0.2, Neut # (Auto) 14.1 H, Lymph # (Auto) 1.2, [place] # (Auto) 0.5, Eos # (Auto) 0.0, Baso # (Auto) 0.0, Total Counted 100, Neutrophils % (Manual) 84 H, Lymphocytes % (Manual) 13, Monocytes % (Manual) 3, Platelet Estimate Normal, RBC Morphology Normal 04/15/21 07:17: Sodium 142, Potassium 3.3 L D, Chloride 107, Carbon Dioxide 27, Anion Gap 11.3, BUN 26 H, Creatinine 0.80, Estimated Creat Clear 115, Estimated GFR 74, Est GFR ( Amer) 89, Glucose 116 H, Calcium 8.6 I & O for Last 24 hours: Intake & Output 04/12/21 04/13/21 04/14/21 04/15/21 23:59 23:59 23:59 23:59 Intake Total 1174 / 1174 1805 / 1805 0 / 0 Balance 1174 / 1174 1805 / 1805 0 / 0 Weight 203 lb 200 lb 9.93 oz 200 lb 1 oz 207 lb 3 oz Microbiology Reports for the Last 24 Hours: Microbiology 04/12/21 17:20 Blood Blood Culture - Preliminary NO GROWTH AFTER 48 HOURS 04/12/21 17:20 Blood Blood Culture - Preliminary NO GROWTH AFTER 48 HOURS - Constitutional no acute distress - *Routine HEENT Exam Head: Present: normocephalic Eye: Present: EOMI ENT: Present: mucous membranes moist - *Routine Neck Exam Present: trachea midline. Absent: tracheal deviation - *Routine Respiratory Exam Present: CTA bilaterally. Absent: accessory muscle use - *Routine Cardiovascular Exam Present: RRR - *Routine Abdominal Exam Present: soft, normoactive bowel sounds, tenderness. Absent: firm Comments: Less Tender today - *Routine Extremities Exam Present: full ROM, pulses intact. Absent: cyanosis, clubbing, edema, calf tenderness - *Routine Skin Exam Present: intact, dry, warm. Absent: cyanosis, erythema - *Routine Neurological Exam Present: alert, oriented X3. Absent: motor deficit - Routine Psychiatric Exam Present: normal affect, normal thought process. Absent: auditory hallucinations, visual hallucinations Assessment and Plan (1) Abdominal mass Status: Acute Qualifiers: Abdominal location: epigastric Qualified Code(s): R19.06 - Epigastric swelling, mass or lump Category: Medical Code(s): R19.00 - Intra-abdominal and pelvic swelling, mass and lump, unspecified site (2) Acute diverticulitis Status: Acute Category: Medical Code(s): K57.92 - Diverticulitis of intestine, part unspecified, without perforation or abscess without bleeding (3) Ileus Status: Acute Category: Medical Code(s): K56.7 - Ileus, unspecified (4) Leukocytosis Status: Acute Category: Medical Code(s): D72.829 - Elevated white blood cell count, unspecified (5) Hypokalemia Status: Acute Category: Medical Code(s): E87.6 - Hypokalemia - Assessment and plan all Dx Assessment and Plan for all problems:: Rounded with Dr. Castellon, all orders per Dr. Castellon: 1. Toradol 30 mg IV every 6 scheduled 2. Solu-Medrol 40 mg IV every 8
--- NOTE | 2021-04-15 13:49 | DIET.NUTRFU ---
Addendum entered by Camryn Roque 04/27/21 09:09: Pt tolerating full liquids well but not able to consume much-intakes 50%, states she is ready for solid food. She is drinking well, IVF stopped today, Electrolytes and BUN remain low, creatinine stabilized. Gatorade zero sugar once daily added to order. Weight down 6#. Continues with good bowel function. Recommend slowly advancing diet to low fiber/residue as tolerated. Addendum entered by Camryn Roque 04/25/21 12:42: Pt tolerating small sips of clears, encouraged to consume slowly as tolerated. She has had good colostomy output, gas, and belching. Weight down 20#, however suspect inaccuracy in documentation of 20# in past 24h and that weight loss was likely more gradual. She continues on D5/K IVF. Sodium, Potassium, and renal labs decreased. Addendum entered by Camryn Roque 04/22/21 13:18: Pt day 5 NPO, has had ostomy output, recommend advancing diet as soon as possible when cleared by surgery. Weight is up another 10# past 48h, 30# total weight gain t/o stay which is fluid. K is low. She has been started on lasix. IVF switched to D5 with K. Addendum entered by Camryn Roque 04/20/21 13:22: s/p bowel resection/ostomy, no output, remains NPO day 3. Recommend advancing diet slowly as tolerated following ostomy output. Weight is up 20# from admission, however suspect inaccuracies some of recorded weights and that weight gain was more gradual than documented. Addendum entered by Camryn Roque 04/18/21 14:37: Pt tolerated 50-75% PO intakes full liquids well. Has continued without bowel function. She remains NPO following results of CT scan this morning. Continuing to monitor and following findings/care plans to provide further appropriate MNT as indicated. Weight recorded to be up 20# past 24h, doubtful of accuracy of this. Original Note: Pt tolerated clears well with about 50% PO intakes. Advanced to fulls for lunch and tolerated well but was only able to eat about 50%, reports continued low appetite. Has not yet had gas or BM. Pt encouraged to continue to eat slowly as tolerated, drink adequate fluids, and have OOB movement. Pt and provided with diet edu/counseling for ileus and diverticulitis, slow advancement to low fiber/residue recommended. Encouraged them reach out with any questions/concerns post dc.
--- NOTE | 2021-04-15 19:54 | PC.NURSE ---
no acute changes this shift, she is aox4, has joycelyn medicated once for n/v and pain. she has tolerated diet. no needs voiced.
[2021-04-16] VITALS (9 sets, daily range): BP systolic 118–154; BP diastolic 65–81; PULSE 60–72; RESP 17–20; TEMP 36.6–36.8; O2SAT 95; BMI 37.9
[2021-04-16 07:38] LABS: Basophils # 0.1 K/mm3 (0-0.2); Basophils % 0.3 % (0.1-2.0); Hematocrit 37.9 % (37.0-47.0); Hemoglobin 12.2 g/dL (12.2-16.2); Lymphocytes # 1.2 K/mm3 (0.7-4.5); Lymphocytes % 7.8 % (10-50); Mean Corpuscular HGB Conc 32.2 g/dL (31.8-35.4); Mean Corpuscular Hemoglobin 28.8 pg (27.0-31.2); Mean Corpuscular Volume 89.2 fl (81-99); Mean Platelet Volume 8.1 fl (7.4-10.4); Monocytes # 0.6 K/mm3 (0.1-1.0); Monocytes % 3.5 % (1.7-9.3); Neutrophils # 13.7 K/mm3 (1.8-7.8); Neutrophils % 88.3 % (37.0-80.0); Platelet Count 330 K/mm3 (142-424); Red Blood Count 4.25 M/mm3 (4.20-5.40); Red Cell Distribution Width 14.3 % (11.5-17.5); White Blood Count 15.6 K/mm3 (4.8-10.8)
[2021-04-16 07:46] LABS: Anion Gap 12.9 mEq/L (5-15); Blood Urea Nitrogen 29 mg/dl (7-17); Calcium 8.7 mg/dl (8.4-10.2); Carbon Dioxide 26 mmol/L (22.0-30.0); Chloride 106 mmol/L (98-107); Creatinine Clearance Estimated 89 mL/min (50-200); Estimated Glomerular Filt Rate 57 ml/min (>60); GFR (African American) 69 ML/MIN (>60); Glucose 130 mg/dl (74-100); Potassium 3.9 mmoL/L (3.5-5.1); Sodium 141 mmol/L (136-145)
[2021-04-16 07:59] LABS: MANUAL DIFFERENTIAL MANUAL DIFFERENTIAL (MANUAL DIFF)
--- NOTE | 2021-04-16 09:40 | HMH.GSPN ---
Subjective Narrative: Patient does state that she feels much better. She had some transient nausea overnight. However, this resolved and she tolerated full liquid diet without difficulty. Progress Note: A&P (1) Abdominal mass Status: Acute (2) Acute diverticulitis Status: Acute (3) Ileus Status: Acute (4) Leukocytosis Status: Acute (5) Hypokalemia Status: Acute Assessment and Plan for All Diagnoses:: Continue current care at this time Exam Vital signs and Labs for Last 24 Hours: Temp Pulse Resp BP Pulse Ox 98.2 F 66 18 154/71 H 95 04/16/21 08:00 04/16/21 08:00 04/16/21 08:00 04/16/21 08:00 04/16/21 08:00 Laboratory Results - last 24 hr 04/16/21 06:53: WBC 15.6 H, RBC 4.25, Hgb 12.2, Hct 37.9, MCV 89.2, MCH 28.8, MCHC 32.2, RDW 14.3, Plt Count 330, MPV 8.1, Neut % (Auto) 88.3 H, Lymph % (Auto) 7.8 L, [place] % (Auto) 3.5, Eos % (Auto) 0.0 L, Baso % (Auto) 0.3, Neut # (Auto) 13.7 H, Lymph # (Auto) 1.2, [place] # (Auto) 0.6, Eos # (Auto) 0.0, Baso # (Auto) 0.1 04/16/21 06:53: Sodium 141, Potassium 3.9, Chloride 106, Carbon Dioxide 26, Anion Gap 12.9, BUN 29 H, Creatinine 1.00 D, Estimated Creat Clear 89, Estimated GFR 57 L, Est GFR ( Amer) 69 D, Glucose 130 H, Calcium 8.7 I & O for Last 24 hours: Intake & Output 04/13/21 04/14/21 04/15/21 04/16/21 11:59 11:59 11:59 11:59 Intake Total 0 / 0 2259 / 2259 720 / 720 1320 / 1320 Balance 0 / 0 2259 / 2259 720 / 720 1320 / 1320 Weight 200 lb 4 oz 200 lb 1 oz 207 lb 3 oz 201 lb 0.3 oz Microbiology Reports for the Last 24 Hours: Microbiology 04/12/21 17:20 Blood Blood Culture - Preliminary - *Routine Abdominal Exam Present: soft, tenderness Comments: She has tenderness without guarding or rebound in the right lower quadrant
[2021-04-16 10:07] LABS: Lymphocytes % 20 % (10-50); Monocytes % 3 % (2-9); Neutrophils % 77 % (42-76); Platelet Estimate Normal; RBC Morphology Normal; Total Cells Counted 100
--- NOTE | 2021-04-16 13:15 | HMH.ACPN2 ---
Internal Medicine - PN: Subj *Date: 04/16/21 *Time: 13:15 Interval history: No significant interval change during the night. Patient does have some episodic lower abdominal pressure which is relieved by the passage of flatus. She is having no bleeding. Her abdomen is much less tender, especially with deep palpation in the left lower quadrant. There is no guarding no rebound. Her mother is with her this morning. She continues on IV antibiotics, Zosyn and Flagyl. Actively followed by the surgery service, progress notes from them were reviewed this morning. Exam Vital signs and Labs for Last 24 Hours: Temp Pulse Resp BP Pulse Ox 98.0 F 68 17 150/68 H 95 04/16/21 11:19 04/16/21 11:19 04/16/21 11:19 04/16/21 11:19 04/16/21 11:19 Laboratory Results - last 24 hr 04/16/21 06:53: WBC 15.6 H, RBC 4.25, Hgb 12.2, Hct 37.9, MCV 89.2, MCH 28.8, MCHC 32.2, RDW 14.3, Plt Count 330, MPV 8.1, Neut % (Auto) 88.3 H, Lymph % (Auto) 7.8 L, [place] % (Auto) 3.5, Eos % (Auto) 0.0 L, Baso % (Auto) 0.3, Neut # (Auto) 13.7 H, Lymph # (Auto) 1.2, [place] # (Auto) 0.6, Eos # (Auto) 0.0, Baso # (Auto) 0.1, Total Counted 100, Neutrophils % (Manual) 77 H, Lymphocytes % (Manual) 20, Monocytes % (Manual) 3, Platelet Estimate Normal, RBC Morphology Normal 04/16/21 06:53: Sodium 141, Potassium 3.9, Chloride 106, Carbon Dioxide 26, Anion Gap 12.9, BUN 29 H, Creatinine 1.00 D, Estimated Creat Clear 89, Estimated GFR 57 L, Est GFR ( Amer) 69 D, Glucose 130 H, Calcium 8.7 I & O for Last 24 hours: Intake & Output 04/13/21 04/14/21 04/15/21 04/16/21 23:59 23:59 23:59 23:59 Intake Total 1174 / 1174 1805 / 1805 960 / 1080 360 / 360 Balance 1174 / 1174 1805 / 1805 960 / 1080 360 / 360 Weight 200 lb 9.93 oz 200 lb 1 oz 207 lb 3 oz 201 lb 0.3 oz Microbiology Reports for the Last 24 Hours: Microbiology 04/12/21 17:20 Blood Blood Culture - Preliminary Micrococcus luteus/lylae - Constitutional no acute distress - *Routine HEENT Exam Head: Present: normocephalic Eye: Present: EOMI, PERRL ENT: Present: mucous membranes moist - *Routine Neck Exam Present: supple. Absent: lymphadenopathy - *Routine Respiratory Exam Present: CTA bilaterally - *Routine Cardiovascular Exam Present: RRR - *Routine Abdominal Exam Present: soft, normoactive bowel sounds, tenderness. Absent: distended, rebound, guarding, firm, rigid, organomegaly, mass - *Routine Extremities Exam Absent: cyanosis, clubbing, edema - *Routine Skin Exam Present: warm. Absent: rash - *Routine Neurological Exam Present: alert, oriented X3 Assessment and Plan (1) Abdominal mass Status: Acute Qualifiers: Abdominal location: epigastric Qualified Code(s): R19.06 - Epigastric swelling, mass or lump Category: Medical Code(s): R19.00 - Intra-abdominal and pelvic swelling, mass and lump, unspecified site (2) Acute diverticulitis Status: Acute Category: Medical Code(s): K57.92 - Diverticulitis of intestine, part unspecified, without perforation or abscess without bleeding (3) Ileus Status: Acute Category: Medical Code(s): K56.7 - Ileus, unspecified (4) Leukocytosis Status: Acute Category: Medical Code(s): D72.829 - Elevated white blood cell count, unspecified (5) Hypokalemia Status: Acute Category: Medical Code(s): E87.6 - Hypokalemia - Assessment and plan all Dx Assessment and Plan for all problems:: Continue current regimen, served of measures, dissipate discharge home on p.o. antibiotics.
--- NOTE | 2021-04-16 14:48 | HMH.ACPN ---
Internal Medicine - PN: Subj *Date: 04/16/21 *Time: 14:48 Exam Vital signs and Labs for Last 24 Hours: Temp Pulse Resp BP Pulse Ox 98.0 F 68 17 150/68 H 95 04/16/21 11:19 04/16/21 11:19 04/16/21 11:19 04/16/21 11:19 04/16/21 11:19 Laboratory Results - last 24 hr 04/16/21 06:53: WBC 15.6 H, RBC 4.25, Hgb 12.2, Hct 37.9, MCV 89.2, MCH 28.8, MCHC 32.2, RDW 14.3, Plt Count 330, MPV 8.1, Neut % (Auto) 88.3 H, Lymph % (Auto) 7.8 L, [place] % (Auto) 3.5, Eos % (Auto) 0.0 L, Baso % (Auto) 0.3, Neut # (Auto) 13.7 H, Lymph # (Auto) 1.2, [place] # (Auto) 0.6, Eos # (Auto) 0.0, Baso # (Auto) 0.1, Total Counted 100, Neutrophils % (Manual) 77 H, Lymphocytes % (Manual) 20, Monocytes % (Manual) 3, Platelet Estimate Normal, RBC Morphology Normal 04/16/21 06:53: Sodium 141, Potassium 3.9, Chloride 106, Carbon Dioxide 26, Anion Gap 12.9, BUN 29 H, Creatinine 1.00 D, Estimated Creat Clear 89, Estimated GFR 57 L, Est GFR ( Amer) 69 D, Glucose 130 H, Calcium 8.7 I & O for Last 24 hours: Intake & Output 04/13/21 04/14/21 04/15/21 04/16/21 23:59 23:59 23:59 23:59 Intake Total 1174 / 1174 1805 / 1805 960 / 1080 360 / 360 Balance 1174 / 1174 1805 / 1805 960 / 1080 360 / 360 Weight 91 kg 90.747 kg 93.979 kg 91.181 kg Microbiology Reports for the Last 24 Hours: Microbiology 04/12/21 17:20 Blood Blood Culture - Preliminary Micrococcus luteus/lylae Assessment and Plan (1) Abdominal mass Status: Acute Qualifiers: Abdominal location: epigastric Qualified Code(s): R19.06 - Epigastric swelling, mass or lump Category: Medical Code(s): R19.00 - Intra-abdominal and pelvic swelling, mass and lump, unspecified site (2) Acute diverticulitis Status: Acute Category: Medical Code(s): K57.92 - Diverticulitis of intestine, part unspecified, without perforation or abscess without bleeding (3) Ileus Status: Acute Category: Medical Code(s): K56.7 - Ileus, unspecified (4) Leukocytosis Status: Acute Category: Medical Code(s): D72.829 - Elevated white blood cell count, unspecified (5) Hypokalemia Status: Acute Category: Medical Code(s): E87.6 - Hypokalemia The patient's infection will respond to the chosen ABx?: Yes Is the patient receiving the right drug, dose, and route?: Yes Could a more targeted ABx be ordered?: No
--- NOTE | 2021-04-16 18:37 | PC.NURSE ---
SHE IS AOX4, HAS BEEN UP TO CHAIR T/O SHIFT, HAS BEEN MEDICATED WITH [place] TORADOL WITH GOOD EFFECTIVENESS, SHE HAS NOT C/O PAIN OR N/V/D, SHE DOES NOT REQUIRE O2 SUPPORT. NO ACUTE CHANGES.
[2021-04-17] VITALS (7 sets, daily range): BP systolic 101–142; BP diastolic 57–92; PULSE 50–85; RESP 16–20; TEMP 36.6–37.3; O2SAT 94–96; BMI 37.5
[2021-04-17 07:11] LABS: Basophils # 0.1 K/mm3 (0-0.2); Basophils % 0.7 % (0.1-2.0); Eosinophils % 0.2 % (0.1-12.0); Hematocrit 38.2 % (37.0-47.0); Hemoglobin 12.5 g/dL (12.2-16.2); Lymphocytes # 1.3 K/mm3 (0.7-4.5); Lymphocytes % 7.6 % (10-50); Mean Corpuscular HGB Conc 32.8 g/dL (31.8-35.4); Mean Corpuscular Hemoglobin 28.9 pg (27.0-31.2); Mean Corpuscular Volume 88.3 fl (81-99); Mean Platelet Volume 8.1 fl (7.4-10.4); Monocytes # 0.6 K/mm3 (0.1-1.0); Monocytes % 3.5 % (1.7-9.3); Neutrophils # 15.2 K/mm3 (1.8-7.8); Platelet Count 341 K/mm3 (142-424); Red Blood Count 4.33 M/mm3 (4.20-5.40); Red Cell Distribution Width 14.3 % (11.5-17.5); White Blood Count 17.2 K/mm3 (4.8-10.8)
[2021-04-17 07:13] LABS: MANUAL DIFFERENTIAL MANUAL DIFFERENTIAL (MANUAL DIFF)
[2021-04-17 07:15] LABS: Chloride 108 mmol/L (98-107); Sodium 142 mmol/L (136-145)
[2021-04-17 07:18] LABS: Blood Urea Nitrogen 21 mg/dl (7-17); Calcium 8.7 mg/dl (8.4-10.2); Carbon Dioxide 28 mmol/L (22.0-30.0); Creatinine Clearance Estimated 98 mL/min (50-200); Estimated Glomerular Filt Rate 65 ml/min (>60); GFR (African American) 78 ML/MIN (>60); Glucose 143 mg/dl (74-100)
[2021-04-17 07:24] LABS: Lymphocytes % 5 % (10-50); Monocytes % 1 % (2-9); Neutrophils % 91 % (42-76); Platelet Estimate Normal; RBC Morphology Normal; Total Cells Counted 100
--- NOTE | 2021-04-17 09:58 | P.PN_ITS ---
Subjective Narrative: Patient without significant complaints. She does feel the need to defecate. She is drinking prune juice. She states that she wants real food . She is not taking much full liquids. Progress Note: A&P (1) Abdominal mass Status: Acute (2) Acute diverticulitis Status: Acute (3) Ileus Status: Acute (4) Leukocytosis Status: Acute (5) Hypokalemia Status: Acute Assessment and Plan for All Diagnoses:: Patient's white blood cell count is 17,000. She has shown some improvement in her apparent complicated diverticulitis but not appreciable. Due to her persistent tenderness and leukocytosis I will switch her to IV Invanz at this time. Try some low residue diet. Plan for follow-up interval CT scan with IV and oral contrast this time tomorrow to check for interval change. I informed her that she could require operative intervention even during this hospitalization. However, given the fact that this may be able to be done with the bowel prep she has much less chance of having a temporary ostomy. This information resulted in patient becoming tearful and emotionally upset. Exam Vital signs and Labs for Last 24 Hours: Temp Pulse Resp BP Pulse Ox 98.1 F 64 18 142/92 H 94 L 04/17/21 08:00 04/17/21 08:00 04/17/21 08:00 04/17/21 08:00 04/17/21 08:00 Laboratory Results - last 24 hr 04/16/21 06:53: Total Counted 100, Neutrophils % (Manual) 77 H, Lymphocytes % (Manual) 20, Monocytes % (Manual) 3, Platelet Estimate Normal, RBC Morphology Normal 04/17/21 06:54: WBC 17.2 H, RBC 4.33, Hgb 12.5, Hct 38.2, MCV 88.3, MCH 28.9, MCHC 32.8, RDW 14.3, Plt Count 341, MPV 8.1, Neut % (Auto) 88.0 H, Lymph % (Auto) 7.6 L, [place] % (Auto) 3.5, Eos % (Auto) 0.2, Baso % (Auto) 0.7, Neut # (Auto) 15.2 H, Lymph # (Auto) 1.3, [place] # (Auto) 0.6, Eos # (Auto) 0.0, Baso # (Auto) 0.1, Total Counted 100, Neutrophils % (Manual) 91 H, Band Neutrophils % 3.0, Lymphocytes % (Manual) 5 L, Monocytes % (Manual) 1 L, Platelet Estimate Normal, RBC Morphology Normal 04/17/21 06:54: Sodium 142, Potassium 4.0, Chloride 108 H, Carbon Dioxide 28, Anion Gap 10.0, BUN 21 H D, Creatinine 0.90, Estimated Creat Clear 98, Estimated GFR 65, Est GFR ( Amer) 78, Glucose 143 H, Calcium 8.7 I & O for Last 24 hours: Intake & Output 04/14/21 04/15/21 04/16/21 04/17/21 11:59 11:59 11:59 11:59 Intake Total 2259 / 2259 720 / 720 1320 / 1320 2234 / 2234 Balance 2259 / 2259 720 / 720 1320 / 1320 2234 / 2234 Weight 200 lb 1 oz 207 lb 3 oz 201 lb 0.3 oz 199 lb Microbiology Reports for the Last 24 Hours: Microbiology 04/12/21 17:20 Blood Blood Culture - Preliminary Micrococcus luteus/lylae - Constitutional no acute distress - *Routine Abdominal Exam Present: soft Comments: She does have some tenderness in the right lower quadrant.
--- NOTE | 2021-04-17 12:22 | HMH.ACPN2 ---
Internal Medicine - PN: Subj *Date: 04/17/21 *Time: 12:22 Interval history: Patient is eating some clear liquids and chicken noodle soup, tolerating it reasonably well. She has some pressure in bilateral lower quadrants, feels the need to have a large defecation. There is no bleeding. White count is in the same range, 17,000 today. There is no emesis. CT with contrast is scheduled for tomorrow, she remains on IV antibiotics Exam Vital signs and Labs for Last 24 Hours: Temp Pulse Resp BP Pulse Ox 98.1 F 64 18 142/92 H 94 L 04/17/21 08:00 04/17/21 08:00 04/17/21 08:00 04/17/21 08:00 04/17/21 08:00 Laboratory Results - last 24 hr 04/17/21 06:54: WBC 17.2 H, RBC 4.33, Hgb 12.5, Hct 38.2, MCV 88.3, MCH 28.9, MCHC 32.8, RDW 14.3, Plt Count 341, MPV 8.1, Neut % (Auto) 88.0 H, Lymph % (Auto) 7.6 L, [place] % (Auto) 3.5, Eos % (Auto) 0.2, Baso % (Auto) 0.7, Neut # (Auto) 15.2 H, Lymph # (Auto) 1.3, [place] # (Auto) 0.6, Eos # (Auto) 0.0, Baso # (Auto) 0.1, Total Counted 100, Neutrophils % (Manual) 91 H, Band Neutrophils % 3.0, Lymphocytes % (Manual) 5 L, Monocytes % (Manual) 1 L, Platelet Estimate Normal, RBC Morphology Normal 04/17/21 06:54: Sodium 142, Potassium 4.0, Chloride 108 H, Carbon Dioxide 28, Anion Gap 10.0, BUN 21 H D, Creatinine 0.90, Estimated Creat Clear 98, Estimated GFR 65, Est GFR ( Amer) 78, Glucose 143 H, Calcium 8.7 I & O for Last 24 hours: Intake & Output 04/14/21 04/15/21 04/16/21 04/17/21 23:59 23:59 23:59 23:59 Intake Total 1805 / 1805 960 / 1080 2114 / 2354 480 / 480 Balance 1805 / 1805 960 / 1080 2114 / 2354 480 / 480 Weight 200 lb 1 oz 207 lb 3 oz 201 lb 0.3 oz 199 lb Microbiology Reports for the Last 24 Hours: Microbiology 04/12/21 17:20 Blood Blood Culture - Preliminary Micrococcus luteus/lylae - Constitutional no acute distress - *Routine HEENT Exam Head: Present: normocephalic Eye: Present: EOMI, PERRL ENT: Present: mucous membranes moist - *Routine Neck Exam Present: supple. Absent: lymphadenopathy - *Routine Respiratory Exam Present: CTA bilaterally - *Routine Cardiovascular Exam Present: RRR - *Routine Abdominal Exam Present: soft, tenderness, distended. Absent: guarding, mass - *Routine Extremities Exam Absent: cyanosis, clubbing, edema - *Routine Skin Exam Present: warm. Absent: rash - *Routine Neurological Exam Present: alert, oriented X3 Assessment and Plan (1) Abdominal mass Status: Acute Qualifiers: Abdominal location: epigastric Qualified Code(s): R19.06 - Epigastric swelling, mass or lump Category: Medical Code(s): R19.00 - Intra-abdominal and pelvic swelling, mass and lump, unspecified site (2) Acute diverticulitis Status: Acute Category: Medical Code(s): K57.92 - Diverticulitis of intestine, part unspecified, without perforation or abscess without bleeding (3) Ileus Status: Acute Category: Medical Code(s): K56.7 - Ileus, unspecified (4) Leukocytosis Status: Acute Category: Medical Code(s): D72.829 - Elevated white blood cell count, unspecified (5) Hypokalemia Status: Acute Category: Medical Code(s): E87.6 - Hypokalemia - Assessment and plan all Dx Assessment and Plan for all problems:: Continue current IV antibiotics. Will reassess status of the abscess and sigmoid colon in the morning, CT abdomen pelvis with contrast.
--- NOTE | 2021-04-17 19:42 | PC.NURSE ---
SHE IS AOX4, HAS BEEN UP TO CHAIR T/O SHIFT, HAS BEEN MEDICATED WITH [place] TORADOL WITH GOOD EFFECTIVENESS, SHE HAS NOT C/O PAIN OR N/V/D, SHE DOES NOT REQUIRE O2 SUPPORT. NO ACUTE CHANGES. SHE HAS BEEN BELCHING THIS SHIFT, STILL NO BM NOTED.
[2021-04-17 20:35] LABS: POC Glucose,Bedside 102 (70-110)
[2021-04-18] VITALS (26 sets, daily range): BP systolic 83–113; BP diastolic 52–77; PULSE 76–108; RESP 12–20; TEMP 36.4–43; O2SAT 93–99; BMI 41.5
[2021-04-18 05:50] LABS: POC Glucose,Bedside 142 (70-110)
[2021-04-18 06:21] LABS: Basophils # 0.2 K/mm3 (0-0.2); Basophils % 1.1 % (0.1-2.0); Eosinophils # 0.1 K/mm3 (0.0-0.4); Eosinophils % 0.2 % (0.1-12.0); Hematocrit 50.1 % (37.0-47.0); Lymphocytes # 0.9 K/mm3 (0.7-4.5); Lymphocytes % 4.2 % (10-50); Mean Corpuscular HGB Conc 32.1 g/dL (31.8-35.4); Mean Corpuscular Hemoglobin 28.6 pg (27.0-31.2); Mean Corpuscular Volume 89.2 fl (81-99); Mean Platelet Volume 7.9 fl (7.4-10.4); Monocytes % 4.7 % (1.7-9.3); Neutrophils # 19.1 K/mm3 (1.8-7.8); Neutrophils % 89.7 % (37.0-80.0); Platelet Count 405 K/mm3 (142-424); Red Blood Count 5.62 M/mm3 (4.20-5.40); Red Cell Distribution Width 14.5 % (11.5-17.5); White Blood Count 21.3 K/mm3 (4.8-10.8)
[2021-04-18 06:34] LABS: Chloride 109 mmol/L (98-107); Sodium 140 mmol/L (136-145)
[2021-04-18 06:37] LABS: Hemoglobin 16.2 g/dL (12.2-16.2)
[2021-04-18 06:38] LABS: Blood Urea Nitrogen 24 mg/dl (7-17); Calcium 8.1 mg/dl (8.4-10.2); Carbon Dioxide 26 mmol/L (22.0-30.0); Creatinine Clearance Estimated 52 mL/min (50-200); Estimated Glomerular Filt Rate 65 ml/min (>60); GFR (African American) 78 ML/MIN (>60); Glucose 175 mg/dl (74-100)
[2021-04-18 06:39] LABS: MANUAL DIFFERENTIAL MANUAL DIFFERENTIAL (MANUAL DIFF)
--- NOTE | 2021-04-18 07:40 | PC.NURSE ---
pt is alert and oriented. pt reports pain with movement and has been favoring laying on right side. pt has been belching repeatedly throughout entire shift. iv patent and infusing. pt was unable to ambulate to bathroom related to pain. bsc was placed in room and with assistance able to use. vss. call light in reach. will continue to monitor.
[2021-04-18 07:41] LABS: Lymphocytes % 11 % (10-50); Monocytes % 10 % (2-9); Neutrophils % 68 % (42-76); Platelet Estimate Normal; RBC Morphology Normal; Total Cells Counted 100
--- NOTE | 2021-04-18 08:53 | HMH.GSPN ---
Subjective Patient reports: no new complaints Progress Note: A&P (1) Abdominal mass Status: Acute (2) Acute diverticulitis Status: Acute (3) Ileus Status: Acute (4) Leukocytosis Status: Acute (5) Hypokalemia Status: Acute Assessment and Plan for All Diagnoses:: Repeat CT scan today given lack of significant clinical improvement and progressive leukocytosis. Very possible need for laparotomy with colon resection during this hospitalization. Exam Vital signs and Labs for Last 24 Hours: Temp Pulse Resp BP Pulse Ox 97.9 F 108 H 18 105/77 L 97 04/18/21 08:00 04/18/21 08:00 04/18/21 08:00 04/18/21 08:00 04/18/21 08:00 Laboratory Results - last 24 hr 04/17/21 20:16: POC Glucose 102 04/18/21 05:33: POC Glucose 142 H 04/18/21 06:00: WBC 21.3 H*, RBC 5.62 H D, Hgb 16.2 D, Hct 50.1 H, MCV 89.2, MCH 28.6, MCHC 32.1, RDW 14.5, Plt Count 405, MPV 7.9, Neut % (Auto) 89.7 H, Lymph % (Auto) 4.2 L, [place] % (Auto) 4.7, Eos % (Auto) 0.2, Baso % (Auto) 1.1, Neut # (Auto) 19.1 H, Lymph # (Auto) 0.9, [place] # (Auto) 1.0, Eos # (Auto) 0.1, Baso # (Auto) 0.2, Total Counted 100, Neutrophils % (Manual) 68, Band Neutrophils % 3.0, Lymphocytes % (Manual) 11, Monocytes % (Manual) 10 H, Metamyelocytes % 6.0 H, Blast Cells % 2.0, Platelet Estimate Normal, RBC Morphology Normal 04/18/21 06:00: Sodium 140, Potassium 4.0, Chloride 109 H, Carbon Dioxide 26, Anion Gap 9.0, BUN 24 H, Creatinine 0.90, Estimated Creat Clear 52, Estimated GFR 65, Est GFR ( Amer) 78, Glucose 175 H D, Calcium 8.1 L I & O for Last 24 hours: Intake & Output 04/15/21 04/16/21 04/17/2121 11:59 11:59 11:59 11:59 Intake Total 720 / 720 1320 / 1320 2234 / 2234 3688 / 3688 Output Total 150 / 150 Balance 720 / 720 1320 / 1320 2234 / 2234 3538 / 3538 Weight 207 lb 3 oz 201 lb 0.3 oz 199 lb 220 lb Microbiology Reports for the Last 24 Hours: Microbiology 04/12/21 17:20 Blood Blood Culture - Final NO GROWTH AFTER 5 DAYS 04/12/21 17:20 Blood Blood Culture - Preliminary Micrococcus luteus/lylae - Constitutional no acute distress
--- NOTE | 2021-04-18 09:00 | CT_ITS ---
PROCEDURE: CT ABDOMEN PELVIS W CON CLINICAL INDICATION: ABDOMINAL PAIN, DIVERTICULITIS COMPARISON: CT CT ABDOMEN PELVIS W CON from 04/12/2021 TECHNIQUE: IV Contrast: 75ML Isovue 370 Oral Contrast 10ml Gastroview Axial images obtained with sagittal and coronal reformats. All CT scans at the facility use one or more dose reduction, viz: automated exposure control, ma/kV adjustment per patient size (including targeted exams where dose is matched to indication, i.e. head), or iterative reconstruction technique. FINDINGS: LOWER THORAX: Atelectatic changes are present in the right lung base along with development of a small right pleural effusion. ABDOMEN & PELVIS: There will peritoneum is noted. In the subphrenic area on the right there is fluid with an air-fluid level. There are multiple areas loculated free air with air-fluid levels. There is moderate amount of ascites. The colonic thickening persists in the sigmoid region but has shown some improvement. Stranding of the pericolic fat in this region has also shown improvement. Previously there was a small air-fluid level in the right lower quadrant anterior to the area of suspected diverticulitis. This collection has increased in size. There is diffuse small bowel dilatation once again noted with scattered air-fluid levels suggesting small bowel obstruction. There is some thickening with ill definition of the descending and transverse portion of the duodenum with mild stranding of the fat at this area. The inflammatory thickening of the small bowel in the right lower quadrant has shown some improvement The liver and spleen have an unremarkable appearance. The kidneys and adrenal glands are unremarkable. Possible mass of the head of the pancreas once again seen somewhat less well defined due to the underlying inflammatory changes. There is slight increased density within the gallbladder with a bile fluid level and could be due to stones and/or sludge. No acute bony findings. The uterus has a lobular contour consistent with fibroid involvement. There is mild diffuse subcutaneous edema IMPRESSION: 1. Interval development of multiple fluid collections with air-fluid levels within the abdomen and subphrenic area on the right along with areas of pneumoperitoneum. Findings are consistent with ruptured viscus. Previously noted fluid collection in the right lower quadrant has increased in size at 8.8 x 2.7 cm previously 4.5 1.6 cm. 2. There remains some thickening of the sigmoid colon in the right lower quadrant with stranding of the pericolic fat consistent with diverticulitis. Stranding of the pericolic fat in this region has shown some improvement. 3. Dilated small bowel once again noted with air-fluid levels suggesting at least partial small bowel obstruction. 4. No change pancreatic mass. Dictated by: Alvaro Rojas MD 04/18/2021 11:29 Alvaro Rojas MD in [facility] 04/18/2021 11:30
--- NOTE | 2021-04-18 09:17 | HMH.ITSTN ---
pt finished oral contrast at approximately 0815
--- NOTE | 2021-04-18 12:09 | P.PN_ITS ---
[facility] Anesthesia Checklist - Patient Identification Patient Identification: Arm Band - Structural Data Admitted From: Inpatient Planned Operative Procedure/s: Laparotomy Consent for Planned Operative Procedure(s) Verified: Yes - NPO Status Verified Time NPO: 00:00 - Airway Assessment C-Spine Mobility Assessed: Yes TMJ Mobility Assessed: Yes Dentition: Good Dentition - Neurological Assessment Level of Consciousness: Awake Hx Seizures: No Numbness or tingling in extremities: Yes - Anesthesia Plan Anesthesia Risk discussed: Yes Anesthesia Plan: Verified ASA Class: II Anesthesia Type: General [facility] History I have reviewed the patient's past medical history: Yes Medical History: Reports:: Hypertension *Have you ever received a pneumonia vaccine?: No *Have you received a flu vaccine this season?: Yes Other Medical History: Reports: Sinus Problems Anesthesia experience/problems:: None Laterality Cases: Bilateral: Tonsillectomy Other Surgeries: Yes: Sinus Surgery - *Social History Smoking Status: Never smoker Alcohol Intake: never Alcohol Intake Frequency:: other Substance Use Type: denies use *Occupational Status:: retired *Travel in the last 8 weeks: None Family Hx:: Hypertension
--- NOTE | 2021-04-18 13:05 | P.PN_ITS ---
Internal Medicine - PN: Subj *Date: 04/18/21 *Time: 08:45 Interval history: pt states she is having alot of pain and feels bloated Exam Vital signs and Labs for Last 24 Hours: Temp Pulse Resp BP Pulse Ox 98.0 F 103 H 16 113/66 96 04/18/21 11:38 04/18/21 11:38 04/18/21 11:38 04/18/21 11:38 04/18/21 11:38 Laboratory Results - last 24 hr 04/17/21 20:16: POC Glucose 102 04/18/21 05:33: POC Glucose 142 H 04/18/21 06:00: WBC 21.3 H*, RBC 5.62 H D, Hgb 16.2 D, Hct 50.1 H, MCV 89.2, MCH 28.6, MCHC 32.1, RDW 14.5, Plt Count 405, MPV 7.9, Neut % (Auto) 89.7 H, Lymph % (Auto) 4.2 L, [place] % (Auto) 4.7, Eos % (Auto) 0.2, Baso % (Auto) 1.1, [place] # (Auto) 19.1 H, Lymph # (Auto) 0.9, [place] # (Auto) 1.0, Eos # (Auto) 0.1, Baso # (Auto) 0.2, Total Counted 100, Neutrophils % (Manual) 68, Band Neutrophils % 3.0, Lymphocytes % (Manual) 11, Monocytes % (Manual) 10 H, Metamyelocytes % 6.0 H, Blast Cells % 2.0, Platelet Estimate Normal, RBC Morphology Normal 04/18/21 06:00: Sodium 140, Potassium 4.0, Chloride 109 H, Carbon Dioxide 26, Anion Gap 9.0, BUN 24 H, Creatinine 0.90, Estimated Creat Clear 52, Estimated GFR 65, Est GFR ( Amer) 78, Glucose 175 H D, Calcium 8.1 L I & O for Last 24 hours: Intake & Output 04/16/21 04/17/21 04/18/21 04/19/21 11:59 11:59 11:59 11:59 Intake Total 1320 / 1320 2234 / 2234 3688 / 3688 Output Total 150 / 150 Balance 1320 / 1320 2234 / 2234 3538 / 3538 Weight 201 lb 0.3 oz 199 lb 220 lb Microbiology Reports for the Last 24 Hours: Microbiology 04/12/21 17:20 Blood Blood Culture - Final NO GROWTH AFTER 5 DAYS - Constitutional mild distress - *Routine HEENT Exam Head: Present: normocephalic Eye: Present: PERRL ENT: Present: mucous membranes moist - *Routine Neck Exam Present: supple. Absent: lymphadenopathy - *Routine Respiratory Exam Present: CTA bilaterally - *Routine Cardiovascular Exam Present: RRR - *Routine Abdominal Exam Present: soft, tenderness, distended - *Routine Extremities Exam Present: normal capillary refill. Absent: cyanosis, clubbing, edema - *Routine Skin Exam Present: warm. Absent: rash - *Routine Neurological Exam Present: alert, oriented X3 - Routine Psychiatric Exam Present: normal affect Assessment and Plan (1) Abdominal mass Status: Acute Qualifiers: Abdominal location: epigastric Qualified Code(s): R19.06 - Epigastric swelling, mass or lump Category: Medical Code(s): R19.00 - Intra-abdominal and pelvic swelling, mass and lump, unspecified site (2) Acute diverticulitis Status: Acute Category: Medical Code(s): K57.92 - Diverticulitis of intestine, part unspecified, without perforation or abscess without bleeding (3) Ileus Status: Acute Category: Medical Code(s): K56.7 - Ileus, unspecified (4) Leukocytosis Status: Acute Category: Medical Code(s): D72.829 - Elevated white blood cell count, unspecified (5) Hypokalemia Status: Acute Category: Medical Code(s): E87.6 - Hypokalemia - Assessment and plan all Dx Assessment and Plan for all problems:: rounded with dr mendenhall all orders per dr mendenhall repeat ct abd/pelvis
--- NOTE | 2021-04-18 16:01 | HMH.OPNOTE ---
Date of procedure: 04/18/21 Pre-op Diagnosis:: Acute abdomen, progressive diverticulitis Post-op Diagnosis:: Same Procedure performed:: Exploratory laparotomy, sigmoid colon resection with creation of end colostomy, small bowel resection Surgeon:: Robert Fernandez MD NET WPF DEVELOPER:: Jez Rees Anesthesia: GETA Estimated blood loss (mL): 75 Clinical Note:: Patient is a 55-year-old white female. She has no prior history of diverticulitis. She states that on 04/10/2021 she developed relatively diffuse lower abdominal pain. This persisted and progressed in severity. She therefore presented to the emergency department on 04/12/2001 in the late afternoon. Work-up revealed leukocytosis. She underwent CT scan of the abdomen and pelvis which revealed findings most consistent with diverticulitis with 3 cm abscess. She also had findings of ileus. Of note, there was an incidental finding of mass superior to the pancreatic head which may emanate from the caudate lobe of the liver. Nonemergent MRI was suggested by radiology. Patient was admitted at that time and started on intravenous antibiotics. She improved significantly over the first 24 hours and was feeling much better. She was continued on intravenous Zosyn and Flagyl was added by the medicine service. She was given clear liquid diet. He continued to feel subjectively better but did have some tenderness in the right lower abdomen on physical exam which was persistent. She had a mild leukocytosis but improving. Due to the persistence of the tenderness with very mild, although improved, leukocytosis consideration was given for follow-up CT scan. On the morning of 04/18/2021 patient had progressive leukocytosis of 21,000. However, she did states that she was feeling better. She underwent CT scan which revealed development of multiple fluid collections with air-fluid levels within the abdomen and subphrenic area and findings of pneumoperitoneum. Given these findings on imaging and due to her clinical scenario plan was made for emergent laparotomy. Operative findings:: She had severe feculent peritonitis with significant pneumoperitoneum. There were multiple loculated large pockets of feculent liquid consistent with CT scan findings. There is significant induration and inflammatory changes of the sigmoid colon. She had profound ileus and findings almost of partial obstruction distal small bowel due to the inflammatory process. Operative note:: Consent was obtained and patient was taken to the operating room. She was given additional intravenous antibiotics. She was positioned in supine position. Mcmahan catheter was placed she was positioned in modified lithotomy position for possible low pelvic anastomosis if indicated. Midline laparotomy incision was made. There is a large amount of subcutaneous edema. Dissection was carried down through subcutaneous tissues to the fascia. Fascia was incised. There is a large amount of air and feculent liquid which was suctioned free from the abdominal cavity upon entering. A total of at least 1500 cc of liquid feculent fluid was suctioned free. Exposure was achieved. She had findings consistent with profound ileus and possibly partial distal obstruction. Sigmoid colon was easily identified. It was markedly inflamed and indurated. There was a small colotomy defect consistent with perforated diverticulitis. Temporary suture was placed. Colon was inspected and the distal sigmoid colon was actually relatively noninflamed. Dissection was carried out and this was divided with a contour stapling device. Proximal to the site of inflammation and perforation there was an obvious large diverticulum. Proximal to this the colon was less inflamed. Dissection was carried out and the colon was divided at this location with a contour stapling device. Colonic mesentery was carefully divided with the Enseal device with care taken to ensure good hemostasis
--- NOTE | 2021-04-18 16:04 | HMH.ANESI ---
[facility] Anesthesia Record Part I Intake, IV Amount: 2,500 Estimated blood loss (mL): 75 Urine output (mL): 100 Blood Pressure: 103/55 SaO2: 95 Pulse Rate: 94 Respiratory Rate: 16 Temperature: 98.7 F Patient is:: Drowsy, Stable Stable to PACU at:: 16:00
[2021-04-18 16:14] LABS: Microscopic,Cath URINE MICROSCOPIC (MICROSCOPIC)
--- NOTE | 2021-04-18 16:51 | SUR.PHASEI ---
1627- detailed report called to cristhian demarco in ICU by cristhian cartagena 1631- pt left in stable condition with cristhian demarco in the ICU unit.
--- NOTE | 2021-04-18 17:09 | PC.NURSE ---
INSULATION BOARD COATER OPERATOR set up per MD corbin, Daron Renee RN witnessed.
[2021-04-18 17:39] LABS: Appearance,Urine/Cath SL CLOUDY (Clear); Blood, Urine/Cath Negative (Negative); Color,Urine/Cath BROWN (Yellow); Glucose,Urine/Cath (UA) Negative (Negative); Ketones,Urine/Cath Negative (Negative); Leukocyte Esterase,Cath Negative (Negative); Nitrate,Cath POSITIVE (Negative); PH,Urine/Cath 5.5 (5.0-8.5); Protein,Urine/Cath 1+ (Negative); Specific Gravity, Urine/Cath >= 1.030 (1.005-1.030); Urobilinogen,Cath 0.2 EU/dl (0.2)
[2021-04-18 17:55] LABS: Bilirubin,Cath 1+ (Negative)
[2021-04-18 18:10] LABS: POC Glucose,Bedside 270 (70-110)
[2021-04-18 18:11] LABS: Bacteria,Urine/Cath 1+ /lpf; Squamous Epithelial Ur./Cath Occasional #/hpf (0-5)
[2021-04-18 22:18] LABS: POC Glucose,Bedside 202 (70-110)
[2021-04-19] VITALS (15 sets, daily range): BP systolic 98–118; BP diastolic 55–67; PULSE 60–98; RESP 12–18; TEMP 36.4–36.8; O2SAT 92–95; BMI 42.0
--- NOTE | 2021-04-19 03:50 | PC.NURSE ---
pt has midline incision to abd. dressing has serousanguineous drainage noted to dressing and in colostomy bag. iv patent and infusing per mar. pt has used 1 mg of printing press machinist currently this shift. oral care given. ng in right nare patent with low wall continuous suction. ng auscultated and gastric content noted when checking placement. dark green drainage noted. porras in place. pt instructed and demonstrates IS. reminded to deep breath and cough as well as repositioning. vss. call light in reach. will continue to monitor
[2021-04-19 07:08] LABS: Basophils # 0.2 K/mm3 (0-0.2); Basophils % 0.6 % (0.1-2.0); Eosinophils # 0.1 K/mm3 (0.0-0.4); Eosinophils % 0.2 % (0.1-12.0); Hematocrit 39.6 % (37.0-47.0); Hemoglobin 12.6 g/dL (12.2-16.2); Lymphocytes # 0.6 K/mm3 (0.7-4.5); Lymphocytes % 2.7 % (10-50); Mean Corpuscular HGB Conc 31.8 g/dL (31.8-35.4); Mean Corpuscular Hemoglobin 28.3 pg (27.0-31.2); Mean Platelet Volume 8.9 fl (7.4-10.4); Monocytes # 0.5 K/mm3 (0.1-1.0); Monocytes % 1.9 % (1.7-9.3); Neutrophils # 22.3 K/mm3 (1.8-7.8); Neutrophils % 94.5 % (37.0-80.0); Platelet Count 270 K/mm3 (142-424); Red Blood Count 4.45 M/mm3 (4.20-5.40); Red Cell Distribution Width 14.8 % (11.5-17.5); White Blood Count 23.6 K/mm3 (4.8-10.8)
[2021-04-19 07:24] LABS: Chloride 114 mmol/L (98-107); Sodium 140 mmol/L (136-145)
[2021-04-19 07:25] LABS: Potassium 3.5 mmoL/L (3.5-5.1)
[2021-04-19 07:26] LABS: MANUAL DIFFERENTIAL MANUAL DIFFERENTIAL (MANUAL DIFF)
[2021-04-19 07:27] LABS: Blood Urea Nitrogen 35 mg/dl (7-17); Creatinine Clearance Estimated 39 mL/min (50-200); Estimated Glomerular Filt Rate 46 ml/min (>60); GFR (African American) 56 ML/MIN (>60)
[2021-04-19 07:28] LABS: Anion Gap 7.5 mEq/L (5-15); Carbon Dioxide 22 mmol/L (22.0-30.0); Glucose 169 mg/dl (74-100)
[2021-04-19 07:30] LABS: Calcium 7.2 mg/dl (8.4-10.2)
--- NOTE | 2021-04-19 08:18 | P.PN_ITS ---
[facility] Anesthesia Record Part II Discharge Time: 16:30 Destination: Medical Surgical Department PACU nurse assessment reviewed?: Yes Patient Condition:: Good Anesthesia Complications:: None Swallowing reflex intact?: Yes Cyanosis?: No Blood Pressure: 98/63 Pulse Rate: 98 Temperature: 98.1 F Mental Status: Alert & Oriented Pain level:: 4 Nausea and/or vomitting:: None Intake, IV Amount: 0
--- NOTE | 2021-04-19 08:31 | HMH.GSPN ---
Subjective Narrative: Patient is without appreciable complaints. Minimal pain. Progress Note: A&P (1) Abdominal mass Status: Acute (2) Acute diverticulitis Status: Acute (3) Ileus Status: Acute (4) Leukocytosis Status: Acute (5) Hypokalemia Status: Acute Assessment and Plan for All Diagnoses:: Continue IV fluids. Continue NG tube and Mcmahan catheter for now. Some marginal urinary output with increase in BUN and creatinine, bolus LR. Exam Vital signs and Labs for Last 24 Hours: Temp Pulse Resp BP Pulse Ox 98.1 F 98 H 18 98/63 L 94 L 04/19/21 08:18 04/19/21 08:18 04/19/21 07:51 04/19/21 08:18 04/19/21 07:51 Laboratory Results - last 24 hr 04/18/21 12:30: Urine Color Brown, Urine Appearance Sl cloudy, Urine pH 5.5, Ur Specific [place] >= 1.030, Urine Protein 1+, Urine Glucose (UA) Negative, Urine Ketones Negative, Urine Blood Negative, Urine Nitrate Positive, Urine Bilirubin 1+ A, Urine Urobilinogen 0.2, Ur Leukocyte Esterase Negative, Urine RBC None, Urine WBC None, Ur Squamous Epith Cells Occasional, Urine Bacteria 1+ 04/18/21 18:02: POC Glucose 270 H 04/18/21 21:21: POC Glucose 202 H 04/19/21 06:42: WBC 23.6 H*, RBC 4.45, Hgb 12.6, Hct 39.6, MCV 89.0, MCH 28.3, MCHC 31.8, RDW 14.8, Plt Count 270 D, MPV 8.9, Neut % (Auto) 94.5 H, Lymph % (Auto) 2.7 L, [place] % (Auto) 1.9, Eos % (Auto) 0.2, Baso % (Auto) 0.6, Neut # (Auto) 22.3 H, Lymph # (Auto) 0.6 L, [place] # (Auto) 0.5, Eos # (Auto) 0.1, Baso # (Auto) 0.2 04/19/21 06:42: Sodium 140, Potassium 3.5, Chloride 114 H, Carbon Dioxide 22, Anion Gap 7.5, BUN 35 H D, Creatinine 1.20 H D, Estimated Creat Clear 39, Estimated GFR 46 L, Est GFR ( Amer) 56 L D, Glucose 169 H, Calcium 7.2 L D I & O for Last 24 hours: Intake & Output 04/16/21 04/17/21 04/18/21 04/19/21 11:59 11:59 11:59 11:59 Intake Total 1320 / 1320 2234 / 2234 3688 / 3688 4846 / 4846 Output Total 150 / 150 700 / 700 Balance 1320 / 1320 2234 / 2234 3538 / 3538 4146 / 4146 Weight 201 lb 0.3 oz 199 lb 220 lb 222 lb 4 oz - *Routine Abdominal Exam Present: soft Comments: Ostomy viable without output
[2021-04-19 09:05] LABS: Lymphocytes % 4 % (10-50); Monocytes % 4 % (2-9); Neutrophils % 89 % (42-76); Total Cells Counted 100
[2021-04-19 09:06] LABS: Hypochromasia 1+; Platelet Estimate Normal
--- NOTE | 2021-04-19 12:08 | PC.NURSE ---
0900 Called and left msg with Lexi in preop to have Dr Fernandez call to clarify order. order entered for LR@715 ml/hr but was the sepsis bolus. 1000 Dr fernandez returned call. states that he wants pt to have a 1000ml bolus of LR then back to maintenance fluid order. fluids were ordered as sepsis bolus for 1430ml. States to change order to LR 1000ml bolus x 1
--- NOTE | 2021-04-19 14:04 | HMH.ACPN2 ---
Internal Medicine - PN: Subj *Date: 04/19/21 *Time: 19:52 Interval history: 55-year-old female patient resting in bed quietly she does report some abdominal tenderness during the night and this morning. She was taken to surgery yesterday and an Exploratory laparotomy, sigmoid colon resection with creation of end colostomy, small bowel resection was performed by general surgery. Exam Vital signs and Labs for Last 24 Hours: Temp Pulse Resp BP Pulse Ox 97.6 F 77 17 98/61 L 93 L 04/19/21 11:50 04/19/21 11:50 04/19/21 11:50 04/19/21 11:50 04/19/21 11:50 Laboratory Results - last 24 hr 04/18/21 12:30: Urine Color Brown, Urine Appearance Sl cloudy, Urine pH 5.5, Ur Specific [place] >= 1.030, Urine Protein 1+, Urine Glucose (UA) Negative, Urine Ketones Negative, Urine Blood Negative, Urine Nitrate Positive, Urine Bilirubin 1+ A, Urine Urobilinogen 0.2, Ur Leukocyte Esterase Negative, Urine RBC None, Urine WBC None, Ur Squamous Epith Cells Occasional, Urine Bacteria 1+ 04/18/21 18:02: POC Glucose 270 H 04/18/21 21:21: POC Glucose 202 H 04/19/21 06:42: WBC 23.6 H*, RBC 4.45, Hgb 12.6, Hct 39.6, MCV 89.0, MCH 28.3, MCHC 31.8, RDW 14.8, Plt Count 270 D, MPV 8.9, Neut % (Auto) 94.5 H, Lymph % (Auto) 2.7 L, [place] % (Auto) 1.9, Eos % (Auto) 0.2, Baso % (Auto) 0.6, Neut # (Auto) 22.3 H, Lymph # (Auto) 0.6 L, [place] # (Auto) 0.5, Eos # (Auto) 0.1, Baso # (Auto) 0.2, Total Counted 100, Neutrophils % (Manual) 89 H, Band Neutrophils % 3.0, Lymphocytes % (Manual) 4 L, Monocytes % (Manual) 4, Platelet Estimate Normal, Hypochromasia 1+ 04/19/21 06:42: Sodium 140, Potassium 3.5, Chloride 114 H, Carbon Dioxide 22, Anion Gap 7.5, BUN 35 H D, Creatinine 1.20 H D, Estimated Creat Clear 39, Estimated GFR 46 L, Est GFR ( Amer) 56 L D, Glucose 169 H, Calcium 7.2 L D I & O for Last 24 hours: Intake & Output 04/16/21 04/17/21 04/18/21 04/19/21 23:59 23:59 23:59 23:59 Intake Total 2114 / 2354 2410 / 2410 4258 / 4258 2346 / 2346 Output Total 400 / 400 450 / 450 Balance 2114 / 2354 2410 / 2260 3858 / 3858 1896 / 1896 Weight 201 lb 0.3 oz 199 lb 220 lb 222 lb 4 oz - Constitutional no acute distress - *Routine HEENT Exam Head: Present: normocephalic Eye: Present: EOMI ENT: Present: mucous membranes moist - *Routine Neck Exam Present: trachea midline. Absent: tracheal deviation - *Routine Respiratory Exam Present: CTA bilaterally. Absent: accessory muscle use - *Routine Cardiovascular Exam Present: RRR - *Routine Abdominal Exam Present: soft, tenderness, ostomy. Absent: normoactive bowel sounds - *Routine Extremities Exam Present: full ROM, pulses intact. Absent: cyanosis, clubbing, edema - *Routine Skin Exam Present: intact, dry, warm, wounds. Absent: cyanosis, erythema - *Routine Neurological Exam Present: alert, oriented X3. Absent: hemineglect - Routine Psychiatric Exam Present: normal affect, normal thought process. Absent: depressed, anxious Assessment and Plan (1) Abdominal mass Status: Acute Qualifiers: Abdominal location: epigastric Qualified Code(s): R19.06 - Epigastric swelling, mass or lump Category: Medical Code(s): R19.00 - Intra-abdominal and pelvic swelling, mass and lump, unspecified site (2) Acute diverticulitis Status: Acute Category: Medical Code(s): K57.92 - Diverticulitis of intestine, part unspecified, without perforation or abscess without bleeding (3) Ileus Status: Acute Category: Medical Code(s): K56.7 - Ileus, unspecified (4) Leukocytosis Status: Acute Category: Medical Code(s): D72.829 - Elevated white blood cell count, unspecified (5) Hypokalemia Status: Acute Category: Medical Code(s): E87.6 - Hypokalemia - Assessment and plan all Dx Assessment and Plan for all problems:: Rounded with Dr. Castellon, all orders per Dr. Castellon: 1. Advance diet as tolerated 2. Surgery following along
--- NOTE | 2021-04-19 14:21 | PC.NURSE ---
per dr villafuerte, pt ok to come out of sd
[2021-04-19 16:47] LABS: POC Glucose,Bedside 139 (70-110)
--- NOTE | 2021-04-19 18:21 | PC.NURSE ---
pt has been a cheeful pt this shift. she has remained in bed. was able to get cleaned up with help of SRNA. pt dressing and colostomy to be changed. pt has not indicated that she has had any pain. she has used the RESOURCE FORESTER. ng tube is patent and draining. pt has thigh high teds in place. lungs are clear. bowel sounds are active in all quads. nad noted.
--- NOTE | 2021-04-19 19:49 | PC.NURSE ---
colostomy dressing and midline incision changed with the help of mrogan camarena. dressing was soiled with serosanguinous drainage. 4 areas of packing noted, hemalatha intact. pt was very uncomfortable discussing the details of her colostomy. questioned what he was seeing when looking at stoma. when informed it was her intestines, she exclaimed oh my god! you gotta stop talking about it, or I'm going to throw up!
[2021-04-19 22:30] LABS: POC Glucose,Bedside 134 (70-110)
[2021-04-20] VITALS (9 sets, daily range): BP systolic 111–142; BP diastolic 58–84; PULSE 68–80; RESP 12–18; TEMP 36.4–36.7; O2SAT 94–96; BMI 42.8
[2021-04-20 05:59] LABS: POC Glucose,Bedside 141 (70-110)
[2021-04-20 06:40] LABS: Basophils # 0.1 K/mm3 (0-0.2); Basophils % 0.3 % (0.1-2.0); Hematocrit 37.9 % (37.0-47.0); Hemoglobin 12.1 g/dL (12.2-16.2); Lymphocytes # 0.6 K/mm3 (0.7-4.5); Lymphocytes % 3.5 % (10-50); Mean Corpuscular Hemoglobin 28.7 pg (27.0-31.2); Mean Corpuscular Volume 89.6 fl (81-99); Mean Platelet Volume 8.8 fl (7.4-10.4); Monocytes # 0.4 K/mm3 (0.1-1.0); Monocytes % 2.3 % (1.7-9.3); Neutrophils # 15.6 K/mm3 (1.8-7.8); Platelet Count 227 K/mm3 (142-424); Red Blood Count 4.23 M/mm3 (4.20-5.40); Red Cell Distribution Width 14.8 % (11.5-17.5); White Blood Count 16.6 K/mm3 (4.8-10.8)
--- NOTE | 2021-04-20 06:40 | PC.NURSE ---
Pt is A/Ox4, no acute changes overnight. Pt has used the [employer]BEST[employer] SIDING MECHANIC pump once all night 1MG total. Admin meds per NOV. Dressing was reinforced and remains C/D/I. Pt has porras draining dark yellow to oracio urine with 550ml all shift. Lungs are CTA, VSS, will continue to monitor.
[2021-04-20 06:42] LABS: MANUAL DIFFERENTIAL MANUAL DIFFERENTIAL (MANUAL DIFF)
--- NOTE | 2021-04-20 07:11 | HMH.GSPN ---
Subjective Narrative: Patient states that she feels decent . Not much pain. No nausea. Progress Note: A&P (1) Abdominal mass Status: Acute (2) Acute diverticulitis Status: Acute (3) Ileus Status: Acute (4) Leukocytosis Status: Acute (5) Hypokalemia Status: Acute Assessment and Plan for All Diagnoses:: May DC Mcmahan later. Continue antibiotics and wound care. Continue NG tube for now. Exam Vital signs and Labs for Last 24 Hours: Temp Pulse Resp BP Pulse Ox 97.6 F 71 16 117/65 95 04/20/21 04:00 04/20/21 04:00 04/20/21 04:00 04/20/21 04:00 04/20/21 04:00 Laboratory Results - last 24 hr 04/19/21 06:42: WBC 23.6 H*, RBC 4.45, Hgb 12.6, Hct 39.6, MCV 89.0, MCH 28.3, MCHC 31.8, RDW 14.8, Plt Count 270 D, MPV 8.9, Neut % (Auto) 94.5 H, Lymph % (Auto) 2.7 L, [place] % (Auto) 1.9, Eos % (Auto) 0.2, Baso % (Auto) 0.6, Neut # (Auto) 22.3 H, Lymph # (Auto) 0.6 L, [place] # (Auto) 0.5, Eos # (Auto) 0.1, Baso # (Auto) 0.2, Total Counted 100, Neutrophils % (Manual) 89 H, Band Neutrophils % 3.0, Lymphocytes % (Manual) 4 L, Monocytes % (Manual) 4, Platelet Estimate Normal, Hypochromasia 1+ 04/19/21 06:42: Sodium 140, Potassium 3.5, Chloride 114 H, Carbon Dioxide 22, Anion Gap 7.5, BUN 35 H D, Creatinine 1.20 H D, Estimated Creat Clear 39, Estimated GFR 46 L, Est GFR ( Amer) 56 L D, Glucose 169 H, Calcium 7.2 L D 04/19/21 16:40: POC Glucose 139 H 04/19/21 22:22: POC Glucose 134 H 04/20/21 05:42: POC Glucose 141 H 04/20/21 05:58: WBC 16.6 H D, RBC 4.23, Hgb 12.1 L, Hct 37.9, MCV 89.6, MCH 28.7, MCHC 32.0, RDW 14.8, Plt Count 227, MPV 8.8, Neut % (Auto) 94.0 H, Lymph % (Auto) 3.5 L, [place] % (Auto) 2.3, Eos % (Auto) 0.0 L, Baso % (Auto) 0.3, Neut # (Auto) 15.6 H, Lymph # (Auto) 0.6 L, [place] # (Auto) 0.4, Eos # (Auto) 0.0, Baso # (Auto) 0.1 I & O for Last 24 hours: Intake & Output 04/17/21 04/18/21 04/19/21 04/20/21 11:59 11:59 11:59 11:59 Intake Total 2234 / 2234 3688 / 3688 4846 / 4846 4213 / 4213 Output Total 150 / 150 700 / 700 1600 / 1600 Balance 2234 / 2234 3538 / 3538 4146 / 4146 2613 / 2613 Weight 199 lb 220 lb 222 lb 4 oz 226 lb 15.983 oz - *Routine Abdominal Exam Present: soft, ostomy Comments: Ostomy appears viable without appreciable output.
[2021-04-20 07:20] LABS: Chloride 114 mmol/L (98-107); Sodium 142 mmol/L (136-145)
[2021-04-20 07:21] LABS: Potassium 3.6 mmoL/L (3.5-5.1)
[2021-04-20 07:23] LABS: Blood Urea Nitrogen 37 mg/dl (7-17); Creatinine Clearance Estimated 59 mL/min (50-200); Estimated Glomerular Filt Rate 74 ml/min (>60); GFR (African American) 89 ML/MIN (>60)
[2021-04-20 07:24] LABS: Anion Gap 8.6 mEq/L (5-15); Calcium 7.5 mg/dl (8.4-10.2); Carbon Dioxide 23 mmol/L (22.0-30.0); Glucose 142 mg/dl (74-100)
[2021-04-20 07:44] LABS: Lymphocytes % 12 % (10-50); Monocytes % 5 % (2-9); Neutrophils % 83 % (42-76); Platelet Estimate Normal; RBC Morphology Normal; Total Cells Counted 100
--- NOTE | 2021-04-20 08:53 | HMH.ACPN ---
Internal Medicine - PN: Subj *Date: 04/20/21 *Time: 08:53 Exam Vital signs and Labs for Last 24 Hours: Temp Pulse Resp BP Pulse Ox 97.6 F 71 16 117/65 95 04/20/21 04:00 04/20/21 04:00 04/20/21 04:00 04/20/21 04:00 04/20/21 04:00 Laboratory Results - last 24 hr 04/19/21 06:42: Total Counted 100, Neutrophils % (Manual) 89 H, Band Neutrophils % 3.0, Lymphocytes % (Manual) 4 L, Monocytes % (Manual) 4, Platelet Estimate Normal, Hypochromasia 1+ 04/19/21 16:40: POC Glucose 139 H 04/19/21 22:22: POC Glucose 134 H 04/20/21 05:42: POC Glucose 141 H 04/20/21 05:58: WBC 16.6 H D, RBC 4.23, Hgb 12.1 L, Hct 37.9, MCV 89.6, MCH 28.7, MCHC 32.0, RDW 14.8, Plt Count 227, MPV 8.8, Neut % (Auto) 94.0 H, Lymph % (Auto) 3.5 L, [place] % (Auto) 2.3, Eos % (Auto) 0.0 L, Baso % (Auto) 0.3, Neut # (Auto) 15.6 H, Lymph # (Auto) 0.6 L, [place] # (Auto) 0.4, Eos # (Auto) 0.0, Baso # (Auto) 0.1, Total Counted 100, Neutrophils % (Manual) 83 H, Lymphocytes % (Manual) 12, Monocytes % (Manual) 5, Platelet Estimate Normal, RBC Morphology Normal 04/20/21 05:58: Sodium 142, Potassium 3.6, Chloride 114 H, Carbon Dioxide 23, Anion Gap 8.6, BUN 37 H, Creatinine 0.80 D, Estimated Creat Clear 59, Estimated GFR 74, Est GFR ( Amer) 89 D, Glucose 142 H, Calcium 7.5 L I & O for Last 24 hours: Intake & Output 04/17/21 04/18/21 04/19/21 04/20/21 23:59 23:59 23:59 23:59 Intake Total 2410 / 2410 4258 / 4258 5100 / 5100 1459 / 1459 Output Total 400 / 400 1500 / 1850 900 / 900 Balance 2410 / 2260 3858 / 3858 3600 / 3250 559 / 559 Weight 90.265 kg 99.79 kg 100.811 kg 102.965 kg Assessment and Plan (1) Abdominal mass Status: Acute Qualifiers: Abdominal location: epigastric Qualified Code(s): R19.06 - Epigastric swelling, mass or lump Category: Medical Code(s): R19.00 - Intra-abdominal and pelvic swelling, mass and lump, unspecified site (2) Acute diverticulitis Status: Acute Category: Medical Code(s): K57.92 - Diverticulitis of intestine, part unspecified, without perforation or abscess without bleeding (3) Ileus Status: Acute Category: Medical Code(s): K56.7 - Ileus, unspecified (4) Leukocytosis Status: Acute Category: Medical Code(s): D72.829 - Elevated white blood cell count, unspecified (5) Hypokalemia Status: Acute Category: Medical Code(s): E87.6 - Hypokalemia The patient's infection will respond to the chosen ABx?: Yes Is the patient receiving the right drug, dose, and route?: Yes Could a more targeted ABx be ordered?: No (DIVERTICULITIS)
--- NOTE | 2021-04-20 10:28 | SW/DCPLANNER ---
Addendum entered by [facility] 04/28/21 11:24: Daysi with [facility] has called and confirmed that patient information has been reviewed. Daysi has stated that as long as Dr Zimmerman will sign orders (primary MD) then services will begin for this patient tomorrow. Daysi stated that she will follow up with me if there are any issues. Addendum entered by [facility] 04/28/21 09:54: I have informed Zoey roberson/ [facility] that patient will discharge home today. I will also inform Radha with [employer] for colostomy supplies (company has already been in contact with ) and patient information/order will be faxed to [facility] of for dressing changes and additional two days of IV Invanz. I will follow up with Daysi at [facility] once patient information/order is reviewed. Patient will discharge home today. Addendum entered by [facility] 04/27/21 09:20: I have informed Zoey with [facility] that this patient will not discharge today. I will set patient up with home health services once medically stable for discharge. Patients will speak with [employer] regarding colostomy supplies. Addendum entered by [facility] 04/26/21 13:55: I have spoke with Hansel at [employer]. Hansel has confirmed that this patient is covered at 100% for 5 more days at discharge of IV Invanz and IV medication will be delivered to patients home. I will follow up with [facility] at time of discharge. I will also set up with home health services at time of discharge. Addendum entered by [facility] 04/26/21 11:37: [facility] has deliverer colostomy starter kit to home per . I have spoke with patient regarding the need for IV Invanz at discharge (14 days total-5 more days at home if discharge tomorrow 04/27/21). Patient is interested in returning home with home health and to assist with IV antibiotics/dressing changes/colostomy changes. Patient nurse (Radha) has stated that she is needing daily dressing changes (as described in nursing note) and colostomy bag will only need to be changes as needed. I will fax patient information/order for IV Invanz to Zoey with [facility] for an out of pocket expense. I also spoke with home health agency (Giulia roberson/Sean) whom stated that daily cost for home health nursing visits should be about $10/visit. I have made patient/ aware of spivey. [facility] is however out of network with this patient insurance for home health and will be set up with a different agency at time of discharge. I will follow up with [facility] and [facility] today and set up home health services at time of discharge. (Domenic) [phone] Original Note: I spoke with this patient regarding plans once medically stable for discharge. Patient has had colostomy placed during current hospital stay. I spoke with patient regarding faxing information to [facility] for colostomy supplies/starter kit. I will continue to follow up with this patient until medically stable for discharge. Patient is not ready for discharge at this time.
--- NOTE | 2021-04-20 15:24 | PC.NURSE ---
pt up to chair at this time. tolerated activity very well. did not require splinting or additional pain meds. lungs are clear, bowel sounds are active in all quads. pt has minimal output in colostomy bag. pt states she feels well sitting up to the chair. has been up since approx 1400
--- NOTE | 2021-04-20 17:22 | P.PN_ITS ---
Internal Medicine - PN: Subj *Date: 04/20/21 *Time: 08:50 Interval history: pt laying in bed states doing ok, pt wanting something to drink Exam Vital signs and Labs for Last 24 Hours: Temp Pulse Resp BP Pulse Ox 97.6 F 71 18 125/63 96 04/20/21 04:00 04/20/21 16:00 04/20/21 16:00 04/20/21 16:00 04/20/21 16:00 Laboratory Results - last 24 hr 04/19/21 22:22: POC Glucose 134 H 04/20/21 05:42: POC Glucose 141 H 04/20/21 05:58: WBC 16.6 H D, RBC 4.23, Hgb 12.1 L, Hct 37.9, MCV 89.6, MCH 28.7, MCHC 32.0, RDW 14.8, Plt Count 227, MPV 8.8, Neut % (Auto) 94.0 H, Lymph % (Auto) 3.5 L, [place] % (Auto) 2.3, Eos % (Auto) 0.0 L, Baso % (Auto) 0.3, Neut # (Auto) 15.6 H, Lymph # (Auto) 0.6 L, [place] # (Auto) 0.4, Eos # (Auto) 0.0, Baso # (Auto) 0.1, Total Counted 100, Neutrophils % (Manual) 83 H, Lymphocytes % (Manual) 12, Monocytes % (Manual) 5, Platelet Estimate Normal, RBC Morphology Normal 04/20/21 05:58: Sodium 142, Potassium 3.6, Chloride 114 H, Carbon Dioxide 23, Anion Gap 8.6, BUN 37 H, Creatinine 0.80 D, Estimated Creat Clear 59, Estimated GFR 74, Est GFR ( Amer) 89 D, Glucose 142 H, Calcium 7.5 L I & O for Last 24 hours: Intake & Output 04/18/21 04/19/21 04/20/21 04/21/21 11:59 11:59 11:59 11:59 Intake Total 3688 / 3688 4846 / 4846 4213 / 4213 Output Total 150 / 150 700 / 700 1950 / 1950 400 / 400 Balance 3538 / 3538 4146 / 4146 2263 / 2263 -400 / -400 Weight 220 lb 222 lb 4 oz 226 lb 15.983 oz Microbiology Reports for the Last 24 Hours: Microbiology 04/12/21 17:20 Blood Blood Culture - Final Micrococcus luteus/lylae - Constitutional no acute distress - *Routine HEENT Exam Head: Present: normocephalic Eye: Present: PERRL ENT: Present: mucous membranes moist - *Routine Neck Exam Present: supple. Absent: lymphadenopathy - *Routine Respiratory Exam Present: CTA bilaterally - *Routine Cardiovascular Exam Present: RRR - *Routine Abdominal Exam Present: soft, tenderness, ostomy Comments: ostomy with dark stool ng in place - *Routine Extremities Exam Absent: cyanosis, clubbing, edema - *Routine Skin Exam Present: warm. Absent: rash - *Routine Neurological Exam Present: alert, oriented X3 Assessment and Plan (1) Abdominal mass Status: Acute Qualifiers: Abdominal location: epigastric Qualified Code(s): R19.06 - Epigastric swelling, mass or lump Category: Medical Code(s): R19.00 - Intra-abdominal and pelvic swelling, mass and lump, unspecified site (2) Acute diverticulitis Status: Acute Category: Medical Code(s): K57.92 - Diverticulitis of intestine, part unspecified, without perforation or abscess without bleeding (3) Ileus Status: Acute Category: Medical Code(s): K56.7 - Ileus, unspecified (4) Leukocytosis Status: Acute Category: Medical Code(s): D72.829 - Elevated white blood cell count, unspecified (5) Hypokalemia Status: Acute Category: Medical Code(s): E87.6 - Hypokalemia - Assessment and plan all Dx Assessment and Plan for all problems:: rounded with dr gillespie all orders per dr gillespie continue all treatment
--- NOTE | 2021-04-20 17:32 | PC.NURSE ---
pt arms have been elevated on pillow since being up to chair at 1400
--- NOTE | 2021-04-20 18:05 | PC.NURSE ---
pt has been up to the chair since approx 1400 and has tolerated it well. swelling in hands and legs has began to recede. lungs are clear, pt has had ice chips and tolerated them well this shift. pt used 3 doses of project leader this shift. pt reminded to call out if she feels like she needs to void. pt reminded that ice intake needs to slow down. pt encouraged to chew chewing gum. pt agreeable on both accounts. nad noted. will monitor.
--- NOTE | 2021-04-20 23:22 | PC.NURSE ---
She is A&Ox20 She has a NG in her right nare @ 77. SCDS in place. She has voided since her f/c was removed. Midline abdominal incision with serosanguineous drainage on DSG. She continues with SASH ASSEMBLER for pain. DSG to be changed later this morning.
[2021-04-21] VITALS (12 sets, daily range): BP systolic 119–146; BP diastolic 58–78; PULSE 56–81; RESP 16–20; TEMP 36.6–37.3; O2SAT 94–97; BMI 42.8
--- NOTE | 2021-04-21 03:12 | PC.NURSE ---
DSG changed via sterile technique. Pt tolerated well.
--- NOTE | 2021-04-21 06:51 | HMH.GSPN ---
Subjective Patient reports: no new complaints Progress Note: A&P (1) Abdominal mass Status: Acute (2) Acute diverticulitis Status: Acute (3) Ileus Status: Acute Assessment and plan: Small amount of liquid stool with an ostomy bag. Continue to closely monitor for signs of ongoing resolution of ileus. May be able to place nasogastric tube to drain bag later today. Secondary to intraoperative findings and expectation of fairly profound/prolonged ileus, do not plan to remove nasogastric tube today. (4) Leukocytosis Status: Acute (5) Hypokalemia Status: Acute Assessment and Plan for All Diagnoses:: Continue incentive spirometer Increase ambulation Exam Vital signs and Labs for Last 24 Hours: Temp Pulse Resp BP Pulse Ox 98 F 56 L 17 136/71 96 04/21/21 06:00 04/21/21 06:00 04/21/21 06:00 04/21/21 06:00 04/21/21 06:00 Laboratory Results - last 24 hr 04/20/21 05:58: Total Counted 100, Neutrophils % (Manual) 83 H, Lymphocytes % (Manual) 12, Monocytes % (Manual) 5, Platelet Estimate Normal, RBC Morphology Normal 04/20/21 05:58: Sodium 142, Potassium 3.6, Chloride 114 H, Carbon Dioxide 23, Anion Gap 8.6, BUN 37 H, Creatinine 0.80 D, Estimated Creat Clear 59, Estimated GFR 74, Est GFR ( Amer) 89 D, Glucose 142 H, Calcium 7.5 L I & O for Last 24 hours: Intake & Output 04/18/21 04/19/21 04/20/21 04/21/21 11:59 11:59 11:59 11:59 Intake Total 3688 / 3688 4846 / 4846 4213 / 4213 3180 / 3180 Output Total 150 / 150 700 / 700 1950 / 1950 1300 / 1300 Balance 3538 / 3538 4146 / 4146 2263 / 2263 1880 / 1880 Weight 220 lb 222 lb 4 oz 226 lb 15.983 oz 226 lb 15.983 oz Microbiology Reports for the Last 24 Hours: Microbiology 04/12/21 17:20 Blood Blood Culture - Final Micrococcus luteus/lylae - Constitutional no acute distress - *Routine Respiratory Exam Absent: respiratory distress - *Routine Cardiovascular Exam Absent: tachycardia - *Routine Abdominal Exam Present: soft Comments: Ostomy viable. Approximately 75 mL of liquid stool within ostomy bag. No air.
[2021-04-21 08:14] LABS: Basophils # 0.1 K/mm3 (0-0.2); Basophils % 0.5 % (0.1-2.0); Eosinophils # 0.2 K/mm3 (0.0-0.4); Eosinophils % 1.7 % (0.1-12.0); Hematocrit 31.6 % (37.0-47.0); Hemoglobin 10.4 g/dL (12.2-16.2); Lymphocytes # 1.4 K/mm3 (0.7-4.5); Mean Corpuscular HGB Conc 32.9 g/dL (31.8-35.4); Mean Corpuscular Hemoglobin 29.1 pg (27.0-31.2); Mean Corpuscular Volume 88.5 fl (81-99); Mean Platelet Volume 9.1 fl (7.4-10.4); Monocytes # 0.4 K/mm3 (0.1-1.0); Monocytes % 2.8 % (1.7-9.3); Neutrophils # 10.4 K/mm3 (1.8-7.8); Platelet Count 267 K/mm3 (142-424); Red Blood Count 3.57 M/mm3 (4.20-5.40); White Blood Count 12.4 K/mm3 (4.8-10.8)
[2021-04-21 08:28] LABS: Chloride 118 mmol/L (98-107); Potassium 3.8 mmoL/L (3.5-5.1); Sodium 143 mmol/L (136-145)
[2021-04-21 08:31] LABS: Anion Gap 5.8 mEq/L (5-15); Blood Urea Nitrogen 32 mg/dl (7-17); Calcium 7.4 mg/dl (8.4-10.2); Carbon Dioxide 23 mmol/L (22.0-30.0); Creatinine Clearance Estimated 78 mL/min (50-200); Estimated Glomerular Filt Rate 103 ml/min (>60); GFR (African American) 125 ML/MIN (>60); Glucose 94 mg/dl (74-100)
--- NOTE | 2021-04-21 09:03 | P.PN_ITS ---
Internal Medicine - PN: Subj *Date: 04/21/21 *Time: 20:03 Interval history: 55-year-old female patient sitting up in chair NG intact to nares to suction with dark drainage. She reports she is feeling better today, denies any nausea. Colostomy bag with dark liquid stool. is in room with patient. Exam Vital signs and Labs for Last 24 Hours: Temp Pulse Resp BP Pulse Ox 98.2 F 70 17 143/78 H 97 04/21/21 08:00 04/21/21 08:00 04/21/21 08:00 04/21/21 08:00 04/21/21 08:00 Laboratory Results - last 24 hr 04/21/21 08:03: WBC 12.4 H D, RBC 3.57 L, Hgb 10.4 L, Hct 31.6 L, MCV 88.5, MCH 29.1, MCHC 32.9, RDW 15.0, Plt Count 267, MPV 9.1, Neut % (Auto) 84.0 H, Lymph % (Auto) 11.0, [place] % (Auto) 2.8, Eos % (Auto) 1.7, Baso % (Auto) 0.5, Neut # (Auto) 10.4 H, Lymph # (Auto) 1.4, [place] # (Auto) 0.4, Eos # (Auto) 0.2, Baso # (Auto) 0.1 I & O for Last 24 hours: Intake & Output 04/18/21 04/19/21 04/20/21 04/21/21 23:59 23:59 23:59 23:59 Intake Total 4258 / 4258 5100 / 5100 2987 / 2987 1652 / 1652 Output Total 400 / 400 1500 / 1850 2200 / 2200 300 / 300 Balance 3858 / 3858 3600 / 3250 787 / 787 1352 / 1352 Weight 220 lb 222 lb 4 oz 226 lb 15.983 oz 226 lb 15.983 oz Microbiology Reports for the Last 24 Hours: Microbiology 04/12/21 17:20 Blood Blood Culture - Final Micrococcus luteus/lylae - Constitutional no acute distress - *Routine HEENT Exam Head: Present: normocephalic Eye: Present: EOMI ENT: Present: mucous membranes moist - *Routine Neck Exam Present: supple, trachea midline. Absent: tracheal deviation - *Routine Respiratory Exam Present: CTA bilaterally. Absent: accessory muscle use - *Routine Cardiovascular Exam Present: RRR - *Routine Abdominal Exam Present: soft, normoactive bowel sounds, distended, ostomy. Absent: tenderness, firm - *Routine Extremities Exam Present: edema, full ROM, pulses intact. Absent: cyanosis, clubbing, calf tenderness Comments: BUE Edema BLE Edema Assessment and Plan (1) Abdominal mass Status: Acute Qualifiers: Abdominal location: epigastric Qualified Code(s): R19.06 - Epigastric swelling, mass or lump Category: Medical Code(s): R19.00 - Intra-abdominal and pelvic swelling, mass and lump, unspecified site (2) Acute diverticulitis Status: Acute Category: Medical Code(s): K57.92 - Diverticulitis of intestine, part unspecified, without perforation or abscess without bleeding (3) Ileus Status: Acute Category: Medical Code(s): K56.7 - Ileus, unspecified (4) Leukocytosis Status: Acute Category: Medical Code(s): D72.829 - Elevated white blood cell count, unspecified (5) Hypokalemia Status: Acute Category: Medical Code(s): E87.6 - Hypokalemia - Assessment and plan all Dx Assessment and Plan for all problems:: Rounded with Dr. Castellon, all orders per Dr. Castellon: 1. Venous duplex of bilateral upper extremity 2. Change IV fluids to D5 normal saline at 100 mL an hour
--- NOTE | 2021-04-21 09:04 | CA_ITS ---
APPROVED REPORT Bilateral Upper Extremity Venous Study for DVT. Building Pressure Washer: Stacy Gaitan RVT Indications Upper Extremity Edema: Bilateral DRAKE UE EDEMA,PT IS S/P BOWEL RESECTION Risk Factors Post OP Vein Imaging IJV (R): Normal phasic flow is seen. Normal flow, augmentation and compression is seen. No evidence of Deep Vein Thrombosis. No abnormalities are demonstrated. SCV (R): Normal phasic flow is seen. Normal flow, augmentation and compression is seen. No evidence of Deep Vein Thrombosis. No abnormalities are demonstrated. Axillary (R): Normal phasic flow is seen. Normal flow, augmentation and compression is seen. No evidence of Deep Vein Thrombosis. No abnormalities are demonstrated. Brachial (R): Normal phasic flow is seen. Normal flow, augmentation and compression is seen. No evidence of Deep Vein Thrombosis. No abnormalities are demonstrated. Basilic (R): Compressible Cephalic (R): Thrombus, Non-Compressible Radial (R): Compressible Ulnar (R): Compressible IJV (L): Normal phasic flow is seen. Normal flow, augmentation and compression is seen. No evidence of Deep Vein Thrombosis. No abnormalities are demonstrated. SCV (L): Normal phasic flow is seen. Normal flow, augmentation and compression is seen. No evidence of Deep Vein Thrombosis. No abnormalities are demonstrated. Axillary (L): Normal phasic flow is seen. Normal flow, augmentation and compression is seen. No evidence of Deep Vein Thrombosis. No abnormalities are demonstrated. Brachial (L): Normal phasic flow is seen. Normal flow, augmentation and compression is seen. No evidence of Deep Vein Thrombosis. No abnormalities are demonstrated. Basilic (L): Compressible Cephalic (L): Compressible Radial (L): Compressible Ulnar (L): Compressible Findings Study suggests a thrombus in the right cephalic vein. Other veins of the bilateral upper extremities are negative for DVT or SVT. Conclusion Study suggests a thrombus in the right cephalic vein. Other veins of the bilateral upper extremities are negative for DVT or SVT. Critical Notification Date: 04/21/2021 Time: 11:19 Physician Name: [facility]-ICU nurse Electronically signed by : Alvaro Rojas MD 04/21/2021 16:05:49
--- NOTE | 2021-04-21 09:45 | PC.NURSE ---
pt ambulated to bathroom with assist x 1. Gait steady. She is now sitting in chair with BLE elevated.
--- NOTE | 2021-04-21 11:14 | PC.NURSE ---
Rubén Gorman APRN notified of right cephalic vein thrombus
--- NOTE | 2021-04-21 11:37 | PC.NURSE ---
Dr. Castellon' office updated on FSBS 81. It has dropped 20 points since last night.
--- NOTE | 2021-04-21 12:30 | PC.NURSE ---
received call from Rubén Gorman APRN with new orders: Lovenox to be increased secondary to right cephalic vein thrombus and change MIVF to D5NS @ 100mL/hr. He will enter orders.
[2021-04-21 17:29] LABS: POC Glucose,Bedside 84 (70-110)
[2021-04-21 21:37] LABS: POC Glucose,Bedside 101 (70-110)
[2021-04-21 21:37] LABS: POC Glucose,Bedside 101 (70-110)
[2021-04-21 22:00] LABS: POC Glucose,Bedside 99 (70-110)
[2021-04-22] VITALS (13 sets, daily range): BP systolic 112–142; BP diastolic 58–81; PULSE 65–100; RESP 16–22; TEMP 36.8–37.5; O2SAT 94–96; BMI 44.6
--- NOTE | 2021-04-22 02:46 | PC.NURSE ---
Patient is A&Ox4. VSS. Pain controlled with AUDITING MANAGER pump. ambulated to bathroom with stand by assist. Patient rested well throughout shift. No further concerns
[2021-04-22 06:09] LABS: POC Glucose,Bedside 122 (70-110)
[2021-04-22 06:36] LABS: Basophils # 0.1 K/mm3 (0-0.2); Basophils % 0.4 % (0.1-2.0); Eosinophils # 0.4 K/mm3 (0.0-0.4); Eosinophils % 2.6 % (0.1-12.0); Hematocrit 33.3 % (37.0-47.0); Hemoglobin 10.8 g/dL (12.2-16.2); Lymphocytes # 1.2 K/mm3 (0.7-4.5); Lymphocytes % 8.7 % (10-50); Mean Corpuscular HGB Conc 32.6 g/dL (31.8-35.4); Mean Corpuscular Hemoglobin 28.9 pg (27.0-31.2); Mean Corpuscular Volume 88.9 fl (81-99); Mean Platelet Volume 8.5 fl (7.4-10.4); Monocytes # 0.7 K/mm3 (0.1-1.0); Monocytes % 4.8 % (1.7-9.3); Neutrophils # 11.3 K/mm3 (1.8-7.8); Neutrophils % 83.5 % (37.0-80.0); Platelet Count 229 K/mm3 (142-424); Red Blood Count 3.75 M/mm3 (4.20-5.40); Red Cell Distribution Width 14.6 % (11.5-17.5); White Blood Count 13.6 K/mm3 (4.8-10.8)
[2021-04-22 06:41] LABS: Chloride 109 mmol/L (98-107); Potassium 3.2 mmoL/L (3.5-5.1); Sodium 140 mmol/L (136-145)
[2021-04-22 06:44] LABS: Anion Gap 5.2 mEq/L (5-15); Blood Urea Nitrogen 15 mg/dl (7-17); Carbon Dioxide 29 mmol/L (22.0-30.0); Creatinine Clearance Estimated 93 mL/min (50-200); Estimated Glomerular Filt Rate 127 ml/min (>60); GFR (African American) 153 ML/MIN (>60)
[2021-04-22 06:45] LABS: Calcium 7.2 mg/dl (8.4-10.2); Glucose 129 mg/dl (74-100)
--- NOTE | 2021-04-22 06:48 | PC.NURSE ---
Patient used 7mg out of SMOKE AND FLAME SPECIALIST pump
--- NOTE | 2021-04-22 06:50 | PC.NURSE ---
midline Dressing is still clean dry and intact.
--- NOTE | 2021-04-22 08:35 | HMH.GSPN ---
Subjective Patient reports: no new complaints, pain is less Narrative: 700 cc output from nasogastric tube over the last 24 hours. Minimal ostomy output Progress Note: A&P (1) Abdominal mass Status: Acute (2) Acute diverticulitis Status: Acute (3) Ileus Status: Acute (4) Leukocytosis Status: Acute (5) Hypokalemia Status: Acute Assessment and Plan for All Diagnoses:: Continue current management Exam Vital signs and Labs for Last 24 Hours: Temp Pulse Resp BP Pulse Ox 99.1 F 68 20 141/81 H 96 04/22/21 08:00 04/22/21 08:00 04/22/21 08:00 04/22/21 08:00 04/22/21 08:00 Laboratory Results - last 24 hr 04/20/21 17:45: POC Glucose 101 04/20/21 20:31: POC Glucose 101 04/21/21 08:03: Sodium 143, Potassium 3.8, Chloride 118 H, Carbon Dioxide 23, Anion Gap 5.8, BUN 32 H, Creatinine 0.60 D, Estimated Creat Clear 78, Estimated GFR 103, Est GFR ( Amer) 125 D, Glucose 94, Calcium 7.4 L 04/21/21 16:55: POC Glucose 84 04/21/21 20:24: POC Glucose 99 04/22/21 05:50: POC Glucose 122 H 04/22/21 06:19: WBC 13.6 H, RBC 3.75 L, Hgb 10.8 L, Hct 33.3 L, MCV 88.9, MCH 28.9, MCHC 32.6, RDW 14.6, Plt Count 229, MPV 8.5, Neut % (Auto) 83.5 H, Lymph % (Auto) 8.7 L, [place] % (Auto) 4.8, Eos % (Auto) 2.6, Baso % (Auto) 0.4, Neut # (Auto) 11.3 H, Lymph # (Auto) 1.2, [place] # (Auto) 0.7, Eos # (Auto) 0.4, Baso # (Auto) 0.1 04/22/21 06:19: Sodium 140, Potassium 3.2 L, Chloride 109 H, Carbon Dioxide 29 D, Anion Gap 5.2, BUN 15 D, Creatinine 0.50 L, Estimated Creat Clear 93, Estimated GFR 127, Est GFR ( Amer) 153 D, Glucose 129 H D, Calcium 7.2 L I & O for Last 24 hours: Intake & Output 04/19/21 04/20/21 04/21/21 04/22/21 11:59 11:59 11:59 11:59 Intake Total 4846 / 4846 4213 / 4213 3180 / 3180 2328 / 2328 Output Total 700 / 700 1949 / 1949 1999 / 1999 370 / 370 Balance 4146 / 4146 2263 / 2263 1180 / 1180 1957 / 1957 Weight 222 lb 4 oz 226 lb 15.983 oz 226 lb 15.983 oz 236 lb 7 oz - *Routine Abdominal Exam Present: soft Comments: Ostomy viable. No appreciable output.
--- NOTE | 2021-04-22 08:38 | XR_ITS ---
PROCEDURE: XR FOOT RT MIN 3V CLINICAL INDICATION: Scabbed area on 1st toe from great toe Ulceration between the great toe COMPARISON: No exams were available for comparison FINDINGS: Skin defect is noted along the medial aspect the 2nd toe with some soft tissue gas at this region. 2 small calcific densities are also present at this area. On the oblique view there is a small curvilinear opacity along the distal aspect and medial aspect of the proximal phalanx of the 2nd toe. This measures approximately 5 mm. A shard of glass could have this appearance. No fracture or dislocation. No bony destructive process apparent. Osteoarthritic changes are present at the 1st MTP joint with prominent bony spurring. IMPRESSION: 1. Soft tissue defect with possible foreign body along the medial aspect of the 2nd toe 2. Osteoarthritic changes. Dictated by: Alvaro Rojas MD 04/22/2021 10:35 Alvaro Rojas MD in [place] 04/22/2021 10:35
[2021-04-22 08:49] LABS: Chloride 109 mmol/L (98-107); Potassium 3.3 mmoL/L (3.5-5.1); Sodium 139 mmol/L (136-145)
[2021-04-22 08:52] LABS: Alanine Aminotransferase 15 U/L (12-78); Albumin Level 2.2 g/dl (3.5-5.0); Albumin/Globulin Ratio 0.9 (1.1-1.8); Alkaline Phosphatase 63 U/L (38-126); Anion Gap 7.3 mEq/L (5-15); Aspartate Amino Transferase 25 U/L (14-36); Bilirubin,Total 0.5 mg/dl (0.2-1.3); Blood Urea Nitrogen 15 mg/dl (7-17); Calcium 7.2 mg/dl (8.4-10.2); Carbon Dioxide 26 mmol/L (22.0-30.0); Creatinine Clearance Estimated 93 mL/min (50-200); Estimated Glomerular Filt Rate 127 ml/min (>60); GFR (African American) 153 ML/MIN (>60); Globulin 2.4 g/dL (1.3-3.2); Glucose 129 mg/dl (74-100); Total Protein,Serum 4.6 g/dl (6.3-8.2)
[2021-04-22 08:57] LABS: C-Reactive Protein 80.7 mg/L (0-4)
[2021-04-22 09:13] LABS: Erythrocyte Sedimentation Rate 45 mm/hr (0-30)
--- NOTE | 2021-04-22 09:22 | CA_ITS ---
APPROVED REPORT Bilateral Lower Extremity Venous Study for DVT. Night Clerk: JO Bennett Lower Extremity Pain: Bilateral Lower Extremity Edema: Bilateral Lower Extremity Swelling: Bilateral BUE DVT Risk Factors Bed Rest Vein Imaging CFV (R): compressive, spontaneous, phasic, augmentation SFJ (R): compressive, spontaneous, phasic, augmentation FEM (R): compressive, spontaneous, phasic, augmentation POP (R): compressive, spontaneous, phasic, augmentation PTV (R): compressive, spontaneous, phasic, augmentation GSV (R): compressive, spontaneous, phasic, augmentation Peroneals (R):compressive, spontaneous, phasic, augmentation GAS (R): compressive, spontaneous, phasic, augmentation SFJ (L): compressive, spontaneous, phasic, augmentation FEM (L): compressive, spontaneous, phasic, augmentation POP (L): compressive, spontaneous, phasic, augmentation PTV (L): Not Visualized GSV (L): compressive, spontaneous, phasic, augmentation Peroneals (L):compressive, spontaneous, phasic, augmentation GAS (L): compressive, spontaneous, phasic, augmentation Findings Study suggests no evidence of DVT or SVT in the bilateral lower extremities. Conclusion Study suggests no evidence of DVT or SVT in the bilateral lower extremities. Electronically signed by : Alvaro Rojas MD 04/22/2021 15:57:06
--- NOTE | 2021-04-22 09:22 | CT_ITS ---
PROCEDURE: CT ANGIO CHEST PE PROTOCOL CLINCIAL INDICATION: RUE DVT Postoperative upper extremity venous thrombosis, evaluate for pulmonary embolus COMPARISON: No exams were available for comparison TECHNIQUE: IV Contrast: 70ML Isovue 370 Axial images obtained with sagittal and coronal reformats. All CT scans at the facility use one or more dose reduction, viz: automated exposure control, ma/kV adjustment per patient size (including targeted exams where dose is matched to indication, i.e. head), or iterative reconstruction technique. FINDINGS: HEART AND MEDIASTINAL STRUCTURES: No evidence of pulmonary embolus, aortic aneurysm, or aortic dissection. LUNGS AND PLEURAL SPACES: Right hemidiaphragm is elevated. There is volume loss of the right lower lobe posteriorly with consolidation and small right pleural effusion. Volume loss also noted of the left lower lobe posteriorly with small left pleural effusion. BONY STRUCTURES: Degenerative changes thoracic spine with multilevel osteophytes UPPER ABDOMEN: Fatty liver with hepatosplenomegaly. The gallbladder is distended and somewhat hyperdense and may be due to vicarious excretion of contrast. There is a small amount of ascites in the upper abdomen with mild edematous changes of the peritoneal fat. Nasogastric tube is present with the tip in the region of the body of the stomach. There is an air-fluid level in the hepato renal space. This may be postoperative. ADDITIONAL FINDINGS: No other significant abnormalities. IMPRESSION: No evidence of pulmonary embolus. Small bilateral pleural effusions with bibasilar atelectatic change Hepatosplenomegaly with ascites, edematous changes of the peritoneum, an air-fluid level in the right hepatorenal space. Dictated by: Alvaro Rojas MD 04/22/2021 10:48 Alvaro Rojas MD in [place] 04/22/2021 10:48
--- NOTE | 2021-04-22 09:34 | HMH.ACPN2 ---
Internal Medicine - PN: Subj *Date: 04/22/21 *Time: 11:02 Interval history: 56-year-old female patient sitting up in chair resting quietly, nasogastric tube clamped off, at bedside. She reports she is feeling better today yesterday venous duplex relieved revealed thrombosis in her right upper extremity enoxaparin was increased. Today we will do chest CTA with PE protocol and venous Doppler bilateral lower extremities. She also has a lesion on the corner of her mouth we will begin Bactroban to that and has a lesion on her right foot second digit and will consult podiatry. Exam Vital signs and Labs for Last 24 Hours: Temp Pulse Resp BP Pulse Ox 99.1 F 68 20 141/81 H 96 04/22/21 08:00 04/22/21 08:00 04/22/21 08:00 04/22/21 08:00 04/22/21 08:00 Laboratory Results - last 24 hr 04/20/21 17:45: POC Glucose 101 04/20/21 20:31: POC Glucose 101 04/21/21 16:55: POC Glucose 84 04/21/21 20:24: POC Glucose 99 04/22/21 05:50: POC Glucose 122 H 04/22/21 06:19: WBC 13.6 H, RBC 3.75 L, Hgb 10.8 L, Hct 33.3 L, MCV 88.9, MCH 28.9, MCHC 32.6, RDW 14.6, Plt Count 229, MPV 8.5, Neut % (Auto) 83.5 H, Lymph % (Auto) 8.7 L, [place] % (Auto) 4.8, Eos % (Auto) 2.6, Baso % (Auto) 0.4, Neut # (Auto) 11.3 H, Lymph # (Auto) 1.2, [place] # (Auto) 0.7, Eos # (Auto) 0.4, Baso # (Auto) 0.1 04/22/21 06:19: Sodium 140, Potassium 3.2 L, Chloride 109 H, Carbon Dioxide 29 D, Anion Gap 5.2, BUN 15 D, Creatinine 0.50 L, Estimated Creat Clear 93, Estimated GFR 127, Est GFR ( Amer) 153 D, Glucose 129 H D, Calcium 7.2 L 04/22/21 06:19: ESR 45 H 04/22/21 06:19: Sodium 139, Potassium 3.3 L, Chloride 109 H, Carbon Dioxide 26, Anion Gap 7.3, BUN 15, Creatinine 0.50 L, Estimated Creat Clear 93, Estimated GFR 127, Est GFR ( Amer) 153, Glucose 129 H, Calcium 7.2 L, Total Bilirubin 0.5, AST 25, ALT 15, Alkaline Phosphatase 63, C-Reactive Protein 80.7 H, Total Protein 4.6 L D, Albumin 2.2 L, Globulin 2.4, Albumin/Globulin Ratio 0.9 L I & O for Last 24 hours: Intake & Output 04/19/21 04/20/21 04/21/21 04/22/21 23:59 23:59 23:59 23:59 Intake Total 5100 / 5100 2987 / 2987 2896 / 2896 2175 / 2175 Output Total 1500 / 1850 2200 / 2200 770 / 770 300 / 300 Balance 3600 / 3250 787 / 787 2126 / 2126 1875 / 1875 Weight 222 lb 4 oz 226 lb 15.983 oz 226 lb 15.983 oz 236 lb 7 oz - Constitutional no acute distress - *Routine HEENT Exam Head: Present: normocephalic Eye: Present: EOMI ENT: Present: mucous membranes moist - *Routine Neck Exam Present: trachea midline. Absent: tenderness, tracheal deviation - *Routine Respiratory Exam Present: CTA bilaterally. Absent: accessory muscle use - *Routine Cardiovascular Exam Present: RRR - *Routine Abdominal Exam Present: soft, normoactive bowel sounds, tenderness, ostomy. Absent: firm - *Routine Extremities Exam Present: edema, full ROM, pulses intact. Absent: cyanosis, clubbing, calf tenderness Comments: BUE edema BLE edema - *Routine Skin Exam Present: lesions Comments: Lesion R Side of mouth Lesion R Foot 2nd digit - *Routine Neurological Exam Present: alert, oriented X3. Absent: motor deficit, pronator drift - Routine Psychiatric Exam Present: normal affect, normal thought process. Absent: homicidal ideation, auditory hallucinations Assessment and Plan (1) Abdominal mass Status: Acute Qualifiers: Abdominal location: epigastric Qualified Code(s): R19.06 - Epigastric swelling, mass or lump Category: Medical Code(s): R19.00 - Intra-abdominal and pelvic swelling, mass and lump, unspecified site (2) Acute diverticulitis Status: Acute Category: Medical Code(s): K57.92 - Diverticulitis of intestine, part unspecified, without perforation or abscess without bleeding (3) Ileus Status: Acute Category: Medical Code(s): K56.7 - Ileus, unspecified (4) Leukocytosis Status: Acute Category: Medical Code(s): D72.829 - Elevated white blood cell coun
--- NOTE | 2021-04-22 11:30 | HMH.PTEV ---
Physical Therapy Evaluation Rehab PT IP Evaluation Start: 04/22/21 09:23 Freq: .once Status: Active Protocol: Document 04/22/21 11:27 PHORMONI (Rec: 04/22/21 11:30 PHORNE [id number]) Subjective/History History History 56 [address] [facility] with diverticulitis, now S/P ex-lap with colostomy. She reports she lives with and is independent with all mobility at baseline. Subjective Subjective Pt c/o pain in abdomen, and fatigue in general. Rehab PT IP Eval Objective Appearance Patient Behavior Appropriate Patient Orientation Person,Place,Time Difficulty following instructions none Speech Pattern Clear Ambulation Patient Able to Ambulate Yes Ambulation Observation IP General Gait Pattern Observation Wide Based Gait Ambulation Distance (feet) 20 Ambulation Assistive Device None Ambulation Ability Contact Guard/Hand Hold Balance Ability to Arise Able, uses arms to help Sitting Balance Steady, safe Standing Balance Steady, wide stance Dynamic Sitting Balance Ability Good Dynamic Standing Balance Ability Good Transfers Bed Transfer Ability Contact Guard/Hand Hold Chair Transfer Ability Contact Guard/Hand Hold Sit to Stand Bed Transfer Ability Contact Guard/Hand Hold Sit to Stand Chair Transfer Ability Contact Guard/Hand Hold Rehab PT IP prob,goals,plan Problems Date of Evaluation: 04/22/21 PT IP Problems Bed Mobility,Transfers,Gait Rehab Potential Rehab Potential Good Plan PT Intervention Plan Bed Mobility,Transfers,Gait, Therapeutic Exercise PT Plan Frequency BID Duration LOS Discharge Goals Bed Transfer Ability Supervision/Stand by Sit to Stand Chair Transfer Ability Supervision/Stand by Ambulation Distance (feet) 50 Discharge Plan PT Discharge Plan Pt is appropriate to return home once medically stable. G -code Required No Eval Complexity Eval Charge Codes 34572 - Moderate Complexity PHYSICIAN CERTIFICATION: I certify the specified therapy services for Tiffany Tubbs are required, authorized, and reviewed every 30 days.
[2021-04-22 11:58] LABS: POC Glucose,Bedside 99 (70-110)
--- NOTE | 2021-04-22 12:01 | HMH.ORTHOCON ---
*Admission Date: 04/12/21 *Reason for consult:: RIght 2nd toe scab *History of present illness: Patient is a 55-year-old white female. She was admitted for surgery for abdominal abscess. She now has a NG tube in colostomy. Being followed by general surgery. Podiatry consulted for right second toe scab. Patient seen and evaluated by myself and SURVEYING CREW RODMAN. Same issue as the patient had several years ago when I last saw her 02/17/19. She denies any other treatment besides Betadine to the toe. She states that the area will heal over and then recur. Reports there has been some drainage. [facility] History I have reviewed the patient's past medical history: Yes Medical History: Reports:: Hypertension Denies:: Seizures *Have you ever received a pneumonia vaccine?: No *Have you received a flu vaccine this season?: Yes Other Medical History: Reports: Sinus Problems Anesthesia experience/problems:: None Laterality Cases: Bilateral: Tonsillectomy Other Surgeries: Yes: Sinus Surgery - *Social History Smoking Status: Never smoker Alcohol Intake: never Alcohol Intake Frequency:: other Substance Use Type: denies use *Occupational Status:: retired *Travel in the last 8 weeks: None Family Hx:: Hypertension Review of Systems - Review of Systems Review of systems:: pertinent systems reviewed and negative unless documented below - Constitutional Reports lack of energy - Eyes Reports dry eyes - ENT Denies abnormal hearing - *Cardiovascular Denies chest pain, Denies shortness of breath - *Respiratory Denies shortness of breath - *Gastrointestinal Reports abdominal pain - *Genitourinary Reports urinary urgency - *Musculoskeletal Reports joint swelling - Integumentary/Breasts Reports dry skin, Reports non-healing lesions (right 2nd toe) - *Neurologic Denies abnormal walking, Denies abnormal hearing, Denies abnormal movements, Denies abnormal speech, Denies dizziness - Psychiatric Reports lack of enjoyment - Endocrine Reports cold intolerance - Allergic/Immunologic Reports GI upset with certain foods Meds Home Medications Medication Instructions Recorded Confirmed Type aspirin 81 mg tablet,delayed 81 mg PO DAILY 01/13/19 04/12/21 History release bupropion HCl 150 mg tablet,12 hr 150 mg PO BID #180 each 01/13/19 04/12/21 History sustained-release Naproxen [Naproxen 500mg tab] 500 mg PO BIDP PRN 04/12/21 04/12/21 History Triamterene/Hydrochlorothiazid 1 each PO DAILY 04/12/21 04/12/21 History [Dyazide 37.5-25 Capsule] Verapamil HCl [Verapamil ER] 240 mg PO DAILY 04/12/21 04/12/21 History Allergies Allergy/AdvReac Type Severity Reaction Status Date / Time ALLISON Inhibitors Allergy Verified 02/17/19 15:03 Exam Vital signs and Labs for Last 24 Hours: Temp Pulse Resp BP Pulse Ox 99.1 F 68 20 141/81 H 96 04/22/21 08:00 04/22/21 08:00 04/22/21 08:00 04/22/21 08:00 04/22/21 08:00 Laboratory Results - last 24 hr 04/20/21 17:45: POC Glucose 101 04/20/21 20:31: POC Glucose 101 04/21/21 16:55: POC Glucose 84 04/21/21 20:24: POC Glucose 99 04/22/21 05:50: POC Glucose 122 H 04/22/21 06:19: WBC 13.6 H, RBC 3.75 L, Hgb 10.8 L, Hct 33.3 L, MCV 88.9, MCH 28.9, MCHC 32.6, RDW 14.6, Plt Count 229, MPV 8.5, Neut % (Auto) 83.5 H, Lymph % (Auto) 8.7 L, [place] % (Auto) 4.8, Eos % (Auto) 2.6, Baso % (Auto) 0.4, Neut # (Auto) 11.3 H, Lymph # (Auto) 1.2, [place] # (Auto) 0.7, Eos # (Auto) 0.4, Baso # (Auto) 0.1 04/22/21 06:19: Sodium 140, Potassium 3.2 L, Chloride 109 H, Carbon Dioxide 29 D, Anion Gap 5.2, BUN 15 D, Creatinine 0.50 L, Estimated Creat Clear 93, Estimated GFR 127, Est GFR ( Amer) 153 D, Glucose 129 H D, Calcium 7.2 L 04/22/21 06:19: ESR 45 H 04/22/21 06:19: Sodium 139, Potassium 3.3 L, Chloride 109 H, Carbon Dioxide 26, Anion Gap 7.3, BUN 15, Creatinine 0.50 L, Estimated Creat Clear 93, Estimated GFR 127, Est GFR ( Amer) 153, Glucose 129 H, Calcium 7.2 L, Total Bilirubin 0.5, AST
--- NOTE | 2021-04-22 12:23 | P.PN_ITS ---
Subjective Narrative: Patient underwent venous Doppler of the upper extremities yesterday which revealed superficial thrombophlebitis. She was started on Lovenox. She underwent CTA of the chest and lower extremity venous Doppler today. Results are still pending. She had foot x-ray performed per podiatry. She was given Lasix. She states that she is somewhat tired from all the testing. Progress Note: A&P (1) Abdominal mass Status: Acute (2) Acute diverticulitis Status: Acute (3) Ileus Status: Acute (4) Leukocytosis Status: Acute (5) Hypokalemia Status: Acute Assessment and Plan for All Diagnoses:: Attempt to place nasogastric tube to drain. Exam Vital signs and Labs for Last 24 Hours: Temp Pulse Resp BP Pulse Ox 99.1 F 68 20 141/81 H 96 04/22/21 08:00 04/22/21 08:00 04/22/21 08:00 04/22/21 08:00 04/22/21 08:00 Laboratory Results - last 24 hr 04/20/21 17:45: POC Glucose 101 04/20/21 20:31: POC Glucose 101 04/21/21 16:55: POC Glucose 84 04/21/21 20:24: POC Glucose 99 04/22/21 05:50: POC Glucose 122 H 04/22/21 06:19: WBC 13.6 H, RBC 3.75 L, Hgb 10.8 L, Hct 33.3 L, MCV 88.9, MCH 28.9, MCHC 32.6, RDW 14.6, Plt Count 229, MPV 8.5, Neut % (Auto) 83.5 H, Lymph % (Auto) 8.7 L, [place] % (Auto) 4.8, Eos % (Auto) 2.6, Baso % (Auto) 0.4, Neut # (Auto) 11.3 H, Lymph # (Auto) 1.2, [place] # (Auto) 0.7, Eos # (Auto) 0.4, Baso # (Auto) 0.1 04/22/21 06:19: Sodium 140, Potassium 3.2 L, Chloride 109 H, Carbon Dioxide 29 D, Anion Gap 5.2, BUN 15 D, Creatinine 0.50 L, Estimated Creat Clear 93, Estimated GFR 127, Est GFR ( Amer) 153 D, Glucose 129 H D, Calcium 7.2 L 04/22/21 06:19: ESR 45 H 04/22/21 06:19: Sodium 139, Potassium 3.3 L, Chloride 109 H, Carbon Dioxide 26, Anion Gap 7.3, BUN 15, Creatinine 0.50 L, Estimated Creat Clear 93, Estimated GFR 127, Est GFR ( Amer) 153, Glucose 129 H, Calcium 7.2 L, Total Bilirubin 0.5, AST 25, ALT 15, Alkaline Phosphatase 63, C-Reactive Protein 80.7 H, Total Protein 4.6 L D, Albumin 2.2 L, Globulin 2.4, Albumin/Globulin Ratio 0.9 L 04/22/21 11:50: POC Glucose 99 I & O for Last 24 hours: Intake & Output 04/20/21 04/21/21 04/22/21 04/23/21 11:59 11:59 11:59 11:59 Intake Total 4213 / 4213 3180 / 3180 3419 / 3419 Output Total 1950 / 1950 1999 / 1999 370 / 370 Balance 2263 / 2263 1180 / 1180 3049 / 3049 Weight 226 lb 15.983 oz 226 lb 15.983 oz 236 lb 7 oz - *Routine Abdominal Exam Present: soft Comments: She does appear to have more liquid output from the ostomy.
[2021-04-22 13:25] LABS: Hemoglobin A1C 5.5 % (4.0-6.0)
--- NOTE | 2021-04-22 16:29 | PC.NURSE ---
No acute changes. Remains on room air. No s/s of resp distress. IS encouraged periodically. A&O x4. SR on tely. VSS. NGT to R nare to drainage back @ bedside per MD orders. Midline incision w/ minimal amount of serosang drainage present. Ostomy to LUQ, stoma pink. Dark liquid noted from ostomy, has had around 50 cc out thus far. She has been up to chair this shift, requires standby assistance. Pt tolerates activity well. Family have been supportive @ bedside. 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 She is currently resting. No needs @ this time.
--- NOTE | 2021-04-22 18:07 | PC.NURSE ---
NGT removed spontaneously. New 16 Fr NGT placed to R nare @ 60 cm. Gastric contect aspirated. NGT to drain @ bedside.
[2021-04-22 18:21] LABS: POC Glucose,Bedside 104 (70-110)
[2021-04-22 20:33] LABS: POC Glucose,Bedside 103 (70-110)
[2021-04-23] VITALS (14 sets, daily range): BP systolic 109–138; BP diastolic 58–75; PULSE 60–75; RESP 17–22; TEMP 36.7–37.2; O2SAT 96–99; BMI 43.6
--- NOTE | 2021-04-23 03:09 | PC.NURSE ---
A/O x4, Pt has done well this shift. No acute changes. Midline incision dressing changed using telfa, abd pad, and tape. Dressing had medium amount of serosanguineous drainage present, and a few small clots. Pt tolerated dressing change well. Pt uses BSC to void. Colostomy draining dark brown liquid stool. NG is connected to porras bag. VSS, call light within reach, will continue to monitor.
[2021-04-23 05:55] LABS: POC Glucose,Bedside 128 (70-110)
[2021-04-23 06:36] LABS: Basophils # 0.1 K/mm3 (0-0.2); Basophils % 0.4 % (0.1-2.0); Eosinophils # 0.3 K/mm3 (0.0-0.4); Eosinophils % 2.4 % (0.1-12.0); Hematocrit 31.6 % (37.0-47.0); Hemoglobin 10.1 g/dL (12.2-16.2); Lymphocytes # 1.2 K/mm3 (0.7-4.5); Lymphocytes % 8.9 % (10-50); Mean Corpuscular HGB Conc 31.9 g/dL (31.8-35.4); Mean Corpuscular Hemoglobin 28.2 pg (27.0-31.2); Mean Corpuscular Volume 88.3 fl (81-99); Mean Platelet Volume 9.1 fl (7.4-10.4); Monocytes # 0.7 K/mm3 (0.1-1.0); Monocytes % 5.1 % (1.7-9.3); Neutrophils # 10.7 K/mm3 (1.8-7.8); Neutrophils % 83.2 % (37.0-80.0); Platelet Count 222 K/mm3 (142-424); Red Blood Count 3.58 M/mm3 (4.20-5.40); Red Cell Distribution Width 14.7 % (11.5-17.5); White Blood Count 12.9 K/mm3 (4.8-10.8)
[2021-04-23 07:41] LABS: Chloride 103 mmol/L (98-107); Sodium 136 mmol/L (136-145)
[2021-04-23 07:42] LABS: Potassium 3.3 mmoL/L (3.5-5.1)
[2021-04-23 07:44] LABS: Blood Urea Nitrogen 11 mg/dl (7-17)
[2021-04-23 07:45] LABS: Anion Gap 4.3 mEq/L (5-15); Carbon Dioxide 32 mmol/L (22.0-30.0); Creatinine Clearance Estimated 93 mL/min (50-200); Estimated Glomerular Filt Rate 127 ml/min (>60); GFR (African American) 153 ML/MIN (>60); Glucose 126 mg/dl (74-100)
--- NOTE | 2021-04-23 09:37 | P.PN_ITS ---
Subjective Narrative: Patient without significant complaints. CTA of the chest yesterday revealed no pulmonary embolism. Lower extremity venous Doppler revealed no evidence of lower extremity superficial or deep vein thrombosis. She has had her NG tube to Mcmahan bag over the past 24 hours without appreciable output. I did check residual and there was scant. She denies nausea. Progress Note: A&P (1) Abdominal mass Status: Acute (2) Acute diverticulitis Status: Acute Assessment and plan: We will DC NG tube. Continue n.p.o. except for sips of clears. Continue wound care and antibiotics. (3) Ileus Status: Acute (4) Leukocytosis Status: Acute (5) Hypokalemia Status: Acute (6) Soft tissue tumor of right foot Status: Acute (7) Right second toe ulcer Status: Acute (8) Ulcer of right second toe, limited to breakdown of skin Status: Acute Exam Vital signs and Labs for Last 24 Hours: Temp Pulse Resp BP Pulse Ox 98.1 F 71 18 115/65 97 04/23/21 08:00 04/23/21 08:00 04/23/21 08:00 04/23/21 08:00 04/23/21 08:00 Laboratory Results - last 24 hr 04/22/21 06:19: Hemoglobin A1c 5.5 04/22/21 11:50: POC Glucose 99 04/22/21 17:49: POC Glucose 104 04/22/21 19:33: POC Glucose 103 04/23/21 05:03: POC Glucose 128 H 04/23/21 06:30: WBC 12.9 H, RBC 3.58 L, Hgb 10.1 L, Hct 31.6 L, MCV 88.3, MCH 28.2, MCHC 31.9, RDW 14.7, Plt Count 222, MPV 9.1, Neut % (Auto) 83.2 H, Lymph % (Auto) 8.9 L, [place] % (Auto) 5.1, Eos % (Auto) 2.4, Baso % (Auto) 0.4, Neut # (Auto) 10.7 H, Lymph # (Auto) 1.2, [place] # (Auto) 0.7, Eos # (Auto) 0.3, Baso # (Auto) 0.1 I & O for Last 24 hours: Intake & Output 08/04/04/21/21 04/22/21 04/23/21 11:59 11:59 11:59 11:59 Intake Total 4213 / 4213 3180 / 3180 3419 / 3419 2077 / 8 Output Total 1949 370 / 370 1949 Balance 2263 / 2263 1180 / 1180 3049 / 3049 128 / 128 Weight 226 lb 15.983 oz 226 lb 15.983 oz 236 lb 7 oz 231 lb Microbiology Reports for the Last 24 Hours: Microbiology 04/22/21 11:20 Toe,Second Right Gram Stain - Final 04/22/21 11:20 Toe,Second Right Gram Stain - Final 04/22/21 11:20 Toe,Second Right Wound Culture - Preliminary - *Routine Abdominal Exam Present: soft Comments: There is some sanguinous drainage on the dressing. Ostomy output is good.
[2021-04-23 12:05] LABS: POC Glucose,Bedside 102 (70-110)
--- NOTE | 2021-04-23 13:11 | PC.NURSE ---
1002-spoke to niurka in the lab regarding notification result. verified pt's name, and room number. 1300-Notified MD Castellon during rounds
--- NOTE | 2021-04-23 14:15 | HMH.ACPN2 ---
Internal Medicine - PN: Subj *Date: 04/23/21 *Time: 14:15 Interval history: Is resting comfortably. Her NG tube is out. She has some scant sounds, presses no nausea or vomiting. There is no abdominal distention. General surgery notes reviewed. Podiatry notes reviewed. The toe looks improved today. Exam Vital signs and Labs for Last 24 Hours: Temp Pulse Resp BP Pulse Ox 98.1 F 75 20 138/70 98 04/23/21 14:00 04/23/21 14:00 04/23/21 14:00 04/23/21 14:00 04/23/21 14:00 Laboratory Results - last 24 hr 04/22/21 17:49: POC Glucose 104 04/22/21 19:33: POC Glucose 103 04/23/21 05:03: POC Glucose 128 H 04/23/21 06:30: WBC 12.9 H, RBC 3.58 L, Hgb 10.1 L, Hct 31.6 L, MCV 88.3, MCH 28.2, MCHC 31.9, RDW 14.7, Plt Count 222, MPV 9.1, Neut % (Auto) 83.2 H, Lymph % (Auto) 8.9 L, [place] % (Auto) 5.1, Eos % (Auto) 2.4, Baso % (Auto) 0.4, Neut # (Auto) 10.7 H, Lymph # (Auto) 1.2, [place] # (Auto) 0.7, Eos # (Auto) 0.3, Baso # (Auto) 0.1 04/23/21 06:30: Sodium 136, Potassium 3.3 L, Chloride 103, Carbon Dioxide 32 H D, Anion Gap 4.3 L, BUN 11 D, Creatinine 0.50 L, Estimated Creat Clear 93, Estimated GFR 127, Est GFR ( Amer) 153, Glucose 126 H, Calcium 7.0 L 04/23/21 11:57: POC Glucose 102 I & O for Last 24 hours: Intake & Output 04/20/21 04/21/21 04/22/21 04/23/21 23:59 23:59 23:59 23:59 Intake Total 2987 / 2987 2896 / 2896 3353 / 3353 900 / 900 Output Total 2200 / 2200 770 / 770 1950 / 2250 700 / 700 Balance 787 / 787 2126 / 2126 1403 / 1103 200 / 200 Weight 226 lb 15.983 oz 226 lb 15.983 oz 236 lb 7 oz 231 lb Microbiology Reports for the Last 24 Hours: Microbiology 04/22/21 11:20 Toe,Second Right Gram Stain - Final 04/22/21 11:20 Toe,Second Right Surgical Biopsy Culture - Preliminary NO GROWTH AFTER 24 HOURS 04/22/21 11:20 Toe,Second Right Gram Stain - Final 04/22/21 11:20 Toe,Second Right Wound Culture - Preliminary - Constitutional no acute distress - *Routine HEENT Exam Head: Present: normocephalic Eye: Present: EOMI, PERRL ENT: Present: mucous membranes moist - *Routine Neck Exam Present: supple. Absent: lymphadenopathy - *Routine Respiratory Exam Present: CTA bilaterally - *Routine Cardiovascular Exam Present: RRR - *Routine Abdominal Exam Present: soft, tenderness, ostomy. Absent: distended - *Routine Extremities Exam Present: edema. Absent: cyanosis, clubbing, calf tenderness - *Routine Skin Exam Present: lesions. Absent: jaundice - *Routine Neurological Exam Present: alert, oriented X3 Assessment and Plan (1) Abdominal mass Status: Acute Qualifiers: Abdominal location: epigastric Qualified Code(s): R19.06 - Epigastric swelling, mass or lump Category: Medical Code(s): R19.00 - Intra-abdominal and pelvic swelling, mass and lump, unspecified site (2) Acute diverticulitis Status: Acute Category: Medical Code(s): K57.92 - Diverticulitis of intestine, part unspecified, without perforation or abscess without bleeding (3) Ileus Status: Acute Category: Medical Code(s): K56.7 - Ileus, unspecified (4) Leukocytosis Status: Acute Category: Medical Code(s): D72.829 - Elevated white blood cell count, unspecified (5) Hypokalemia Status: Acute Category: Medical Code(s): E87.6 - Hypokalemia (6) Soft tissue tumor of right foot Status: Acute Category: Medical Code(s): D49.2 - Neoplasm of unspecified behavior of bone, soft tissue, and skin (7) Right second toe ulcer Status: Acute Category: Medical Code(s): L97.519 - Non-pressure chronic ulcer of other part of right foot with unspecified severity (8) Ulcer of right second toe, limited to breakdown of skin Status: Acute Category: Medical Code(s): L97.511 - Non-pressure chronic ulcer of other part of right foot limited to breakdown of skin - Assessment and plan all Dx Assessment and Plan for all problems:: Yimi
[2021-04-23 17:56] LABS: POC Glucose,Bedside 86 (70-110)
--- NOTE | 2021-04-23 17:58 | PC.NURSE ---
Pt has done well this shift. Dressing changes to abdominal incision and to rt foot done today w/o difficulty. Colostomy bag changed this shift as well d/t saturation from abd incision site. Pt has passed flatus today. Pt is a x1 assist to the BSC, pt is urinating clear, light oracio urine. Non-pitting edema noted to bilat feet and BUE. 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 No other acute changes or complaints at this time, will continue to monitor.
[2021-04-24] VITALS (10 sets, daily range): BP systolic 101–152; BP diastolic 53–81; PULSE 64–80; RESP 16–20; TEMP 36.7–37.1; O2SAT 94–98; BMI 43.3
[2021-04-24 00:26] LABS: POC Glucose,Bedside 92 (70-110)
--- NOTE | 2021-04-24 03:37 | PC.NURSE ---
No acute changes. Pt rested well this shift. Midline incision dressing changed due to other dressing leaking serosanguineous drainage. Pt tolerated dressing change well. VSS, Pt denies N/V. Pt has ambulated to bsc with assist x1. Urine remains a light oracio color. call light within reach, will continue to monitor.
[2021-04-24 05:11] LABS: POC Glucose,Bedside 108 (70-110)
--- NOTE | 2021-04-24 06:40 | PC.NURSE ---
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 This morning pt is c/o of a burning and twisting in right calf area. Not tender to touch, or any redness present.
[2021-04-24 08:32] LABS: Basophils % 0.2 % (0.1-2.0); Eosinophils # 0.3 K/mm3 (0.0-0.4); Eosinophils % 2.5 % (0.1-12.0); Hematocrit 29.8 % (37.0-47.0); Hemoglobin 9.9 g/dL (12.2-16.2); Lymphocytes # 1.4 K/mm3 (0.7-4.5); Lymphocytes % 12.3 % (10-50); Mean Corpuscular HGB Conc 33.3 g/dL (31.8-35.4); Mean Corpuscular Hemoglobin 29.3 pg (27.0-31.2); Mean Corpuscular Volume 88.1 fl (81-99); Mean Platelet Volume 9.2 fl (7.4-10.4); Monocytes # 0.5 K/mm3 (0.1-1.0); Monocytes % 4.2 % (1.7-9.3); Neutrophils # 9.4 K/mm3 (1.8-7.8); Neutrophils % 80.7 % (37.0-80.0); Platelet Count 269 K/mm3 (142-424); Red Blood Count 3.39 M/mm3 (4.20-5.40); White Blood Count 11.7 K/mm3 (4.8-10.8)
[2021-04-24 08:44] LABS: Chloride 99 mmol/L (98-107); Potassium 3.6 mmoL/L (3.5-5.1); Sodium 134 mmol/L (136-145)
[2021-04-24 08:47] LABS: Blood Urea Nitrogen 7 mg/dl (7-17); Creatinine Clearance Estimated 93 mL/min (50-200); Estimated Glomerular Filt Rate 127 ml/min (>60); GFR (African American) 153 ML/MIN (>60)
[2021-04-24 08:48] LABS: Anion Gap 6.6 mEq/L (5-15); Calcium 7.4 mg/dl (8.4-10.2); Carbon Dioxide 32 mmol/L (22.0-30.0); Glucose 116 mg/dl (74-100)
--- NOTE | 2021-04-24 09:36 | P.PN_ITS ---
Subjective Narrative: Patient without significant complaints. Tolerated NG tube out for the past 24 hours. No nausea. She has had some belching and burping. Taking ice chips and sips of water. No significant abdominal pain. Has had some lower extremity pain. 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 Continue wound care and antibiotics. May have limited sips of clears. Exam Vital signs and Labs for Last 24 Hours: Temp Pulse Resp BP Pulse Ox 98.1 F 72 18 130/61 98 04/24/21 08:00 04/24/21 08:00 04/24/21 08:00 04/24/21 08:00 04/24/21 08:00 Laboratory Results - last 24 hr 04/23/21 06:30: Sodium 136, Potassium 3.3 L, Chloride 103, Carbon Dioxide 32 H D , Anion Gap 4.3 L, BUN 11 D, Creatinine 0.50 L, Estimated Creat Clear 93, Estimated GFR 127, Est GFR ( Amer) 153, Glucose 126 H, Calcium 7.0 L 04/23/21 11:57: POC Glucose 102 04/23/21 16:31: POC Glucose 86 04/23/21 19:47: POC Glucose 92 04/24/21 05:00: POC Glucose 108 04/24/21 06:15: Sodium 134 L, Potassium 3.6, Chloride 99, Carbon Dioxide 32 H, Anion Gap 6.6, BUN 7 D, Creatinine 0.50 L, Estimated Creat Clear 93, Estimated GFR 127, Est GFR ( Amer) 153, Glucose 116 H, Calcium 7.4 L 04/24/21 06:19: WBC 11.7 H, RBC 3.39 L, Hgb 9.9 L, Hct 29.8 L, MCV 88.1, MCH 29.3, MCHC 33.3, RDW 15.0, Plt Count 269, MPV 9.2, Neut % (Auto) 80.7 H, Lymph % (Auto) 12.3, [place] % (Auto) 4.2, Eos % (Auto) 2.5, Baso % (Auto) 0.2, Neut # (Auto) 9.4 H, Lymph # (Auto) 1.4, [place] # (Auto) 0.5, Eos # (Auto) 0.3, Baso # (Auto) 0.0 I & O for Last 24 hours: Intake & Output 04/21/21 04/22/21 04/23/21 04/24/21 11:59 11:59 11:59 11:59 Intake Total 3180 / 3180 3419 / 3419 2078 / 2078 1701 / 1701 Output Total 1999 / 1999 370 / 370 2350 / 2350 1400 / 1400 Balance 1180 / 1180 3049 / 3049 -272 / -272 301 / 301 Weight 226 lb 15.983 oz 236 lb 7 oz 231 lb 229 lb 7 oz Microbiology Reports for the Last 24 Hours: Microbiology 04/22/21 11:20 Toe,Second Right Gram Stain - Final 04/22/21 11:20 Toe,Second Right Wound Culture - Preliminary 04/22/21 11:20 Toe,Second Right Gram Stain - Final 04/22/21 11:20 Toe,Second Right Surgical Biopsy Culture - Preliminary Gram Negative Rods - *Routine Abdominal Exam Present: soft, ostomy
[2021-04-24 12:03] LABS: POC Glucose,Bedside 111 (70-110)
--- NOTE | 2021-04-24 13:14 | HMH.ACPN2 ---
Internal Medicine - PN: Subj *Date: 04/24/21 *Time: 13:14 Interval history: Patient relays some increased bowel activity. This discomfort, less distention. No new issues in the interval. The toe was inspected yesterday, is wrapped in Betadine. It was debrided the previous day per Dr. Pimentel. Wound culture is growing out some gram-negative rods. She is currently on Invanz should provide suitable coverage pending final identification. Her mood is stable, she is lucid and clear and plans on getting some rest today. Surgery notes are reviewed Exam Vital signs and Labs for Last 24 Hours: Temp Pulse Resp BP Pulse Ox 98.1 F 75 20 132/70 97 04/24/21 12:00 04/24/21 12:00 04/24/21 12:00 04/24/21 12:00 04/24/21 12:00 Laboratory Results - last 24 hr 04/23/21 16:31: POC Glucose 86 04/23/21 19:47: POC Glucose 92 04/24/21 05:00: POC Glucose 108 04/24/21 06:15: Sodium 134 L, Potassium 3.6, Chloride 99, Carbon Dioxide 32 H, Anion Gap 6.6, BUN 7 D, Creatinine 0.50 L, Estimated Creat Clear 93, Estimated GFR 127, Est GFR ( Amer) 153, Glucose 116 H, Calcium 7.4 L 04/24/21 06:19: WBC 11.7 H, RBC 3.39 L, Hgb 9.9 L, Hct 29.8 L, MCV 88.1, MCH 29.3, MCHC 33.3, RDW 15.0, Plt Count 269, MPV 9.2, Neut % (Auto) 80.7 H, Lymph % (Auto) 12.3, [place] % (Auto) 4.2, Eos % (Auto) 2.5, Baso % (Auto) 0.2, Neut # (Auto) 9.4 H, Lymph # (Auto) 1.4, [place] # (Auto) 0.5, Eos # (Auto) 0.3, Baso # (Auto) 0.0 04/24/21 11:38: POC Glucose 111 H I & O for Last 24 hours: Intake & Output 04/21/21 04/22/21 04/23/21 04/24/21 23:59 23:59 23:59 23:59 Intake Total 2896 / 2896 3353 / 3353 900 / 900 1701 / 1701 Output Total 770 / 770 1950 / 2250 1700 / 1700 400 / 400 Balance 2126 / 2126 1403 / 1103 -800 / -800 1301 / 1301 Weight 226 lb 15.983 oz 236 lb 7 oz 231 lb 229 lb 7 oz Microbiology Reports for the Last 24 Hours: Microbiology 04/22/21 11:20 Toe,Second Right Gram Stain - Final 04/22/21 11:20 Toe,Second Right Wound Culture - Preliminary 04/22/21 11:20 Toe,Second Right Gram Stain - Final 04/22/21 11:20 Toe,Second Right Surgical Biopsy Culture - Preliminary Gram Negative Rods - Constitutional no acute distress, obese - *Routine HEENT Exam Head: Present: normocephalic Eye: Present: EOMI, PERRL ENT: Present: mucous membranes moist - *Routine Neck Exam Present: supple. Absent: lymphadenopathy - *Routine Respiratory Exam Present: CTA bilaterally - *Routine Cardiovascular Exam Present: RRR - *Routine Abdominal Exam Present: soft, tenderness, surgical scars, ostomy. Absent: distended - *Routine Extremities Exam Absent: cyanosis, clubbing, edema - *Routine Skin Exam Present: warm, lesions (r). Absent: cyanosis, dry, pallor, rash Comments: right corner of mouth - *Routine Neurological Exam Present: alert, oriented X3 Assessment and Plan (1) Abdominal mass Status: Acute Qualifiers: Abdominal location: epigastric Qualified Code(s): R19.06 - Epigastric swelling, mass or lump Category: Medical Code(s): R19.00 - Intra-abdominal and pelvic swelling, mass and lump, unspecified site (2) Acute diverticulitis Status: Acute Category: Medical Code(s): K57.92 - Diverticulitis of intestine, part unspecified, without perforation or abscess without bleeding (3) Ileus Status: Acute Category: Medical Code(s): K56.7 - Ileus, unspecified (4) Leukocytosis Status: Acute Category: Medical Code(s): D72.829 - Elevated white blood cell count, unspecified (5) Hypokalemia Status: Acute Category: Medical Code(s): E87.6 - Hypokalemia (6) Soft tissue tumor of right foot Status: Acute Category: Medical Code(s): D49.2 - Neoplasm of unspecified behavior of bone, soft tissue, and skin (7) Right second toe ulcer Status: Acute Category: Medical Code(s): L97.519 - Non-pressure chronic ulcer of other part of right foot with unspecified severity
--- NOTE | 2021-04-24 18:26 | PC.NURSE ---
Pt has done fine this shift. Abdominal incision and colostomy bag changed this shift d/t leakage from previous colostomy bag. Pt tolerated both well. Foot dressing changed as well. Pt has requested PRN pain pill x1 this shift, and has stated satisfactory results. remains at bedside. No other acute changes or complaints at this time, will continue to monitor.
[2021-04-24 20:31] LABS: POC Glucose,Bedside 107 (70-110)
--- NOTE | 2021-04-25 03:11 | PC.NURSE ---
No acute changes. Pt rested well this shift. Midline incision dressing changed at beginning of shift. Pt tolerated well. Pt requested nausea med, admin med per MAR with relief. Lungs are CTA. Pt uses BSC to void. VSS, Pt has denied any pain when asked t/o shift. call light within reach, Will continue to monitor.
[2021-04-25 03:56] VITALS: BP 95/54; PULSE 73; RESP 20; TEMP 37.1; O2SAT 96
[2021-04-25 05:00] VITALS: BMI 39.6
[2021-04-25 05:14] LABS: POC Glucose,Bedside 122 (70-110)
[2021-04-25 06:48] LABS: Basophils % 0.4 % (0.1-2.0); Eosinophils # 0.2 K/mm3 (0.0-0.4); Eosinophils % 1.9 % (0.1-12.0); Hemoglobin 8.8 g/dL (12.2-16.2); Lymphocytes # 1.3 K/mm3 (0.7-4.5); Lymphocytes % 12.1 % (10-50); Mean Corpuscular HGB Conc 32.3 g/dL (31.8-35.4); Mean Corpuscular Hemoglobin 28.3 pg (27.0-31.2); Mean Corpuscular Volume 87.7 fl (81-99); Mean Platelet Volume 8.7 fl (7.4-10.4); Monocytes # 0.6 K/mm3 (0.1-1.0); Monocytes % 5.2 % (1.7-9.3); Neutrophils # 8.7 K/mm3 (1.8-7.8); Neutrophils % 80.4 % (37.0-80.0); Platelet Count 311 K/mm3 (142-424); Red Blood Count 3.09 M/mm3 (4.20-5.40); Red Cell Distribution Width 15.1 % (11.5-17.5); White Blood Count 10.8 K/mm3 (4.8-10.8)
[2021-04-25 06:49] LABS: Hematocrit 27.1 % (37.0-47.0)
[2021-04-25 07:10] LABS: Chloride 102 mmol/L (98-107)
[2021-04-25 07:11] LABS: Sodium 134 mmol/L (136-145)
[2021-04-25 07:14] LABS: Blood Urea Nitrogen 4 mg/dl (7-17); Calcium 7.3 mg/dl (8.4-10.2); Carbon Dioxide 29 mmol/L (22.0-30.0); Creatinine Clearance Estimated 184 mL/min (50-200); Estimated Glomerular Filt Rate 127 ml/min (>60); GFR (African American) 153 ML/MIN (>60); Glucose 120 mg/dl (74-100)
[2021-04-25 08:00] VITALS: BP 103/50; PULSE 74; RESP 16; TEMP 36.9; O2SAT 95
--- NOTE | 2021-04-25 08:19 | HMH.ORTHPN ---
Subjective Date: 04/25/21 <Gianna Randall - 04/25/21 08:38> Time: 08:19 <Gianna Randall - 04/25/21 08:38> Principal diagnosis: Right 2nd toe scab <Gianna Randall - 04/25/21 08:38> Interval history: Patient sitting up in her chair this am, is sipping on apple juice, her NG got D/C sometime yesterday and appears to be doing well. Patient had silver dressing changes over the weekend and site is improving some. Patient still having alot of discomfort with dressing changes. Betadine was used to soak off the silver dressing to keep from sticking and then cleaned with betadine gauze and then new silver and kerlix was applied. <Gianna Randall Ryan - 04/25/21 08:38> PN: Obj Ex Vital signs: Temp Pulse Resp BP Pulse Ox 99.8 F H 77 16 121/69 98 04/25/21 11:36 04/25/21 11:36 04/25/21 11:36 04/25/21 11:36 04/25/21 11:36 <Taniya May - 04/25/21 14:15> Temp Pulse Resp BP Pulse Ox 98.4 F 74 16 103/50 L 95 04/25/21 08:00 04/25/21 08:00 04/25/21 08:00 04/25/21 08:00 04/25/21 08:00 <Gianna Randall Ryan - 04/25/21 08:38> - Constitutional no acute distress, obese <NelsonshahnazGianna Ryan - 04/25/21 08:38> - Routine HEENT Exam Head: Present: normocephalic <Gianna Randall Ryan - 04/25/21 08:38> ENT: Present: mucous membranes moist <ToniaGianna L - 04/25/21 08:38> - Routine Neck Exam Present: trachea midline <ToniaGianna L - 04/25/21 08:38> - Routine Respiratory Exam Absent: respiratory distress <Gianna Randall - 04/25/21 08:38> - Routine Cardiovascular Exam Present: RRR <Gianna Randall - 04/25/21 08:38> - Routine Abdominal Exam Present: soft <Gianna Randall - 04/25/21 08:38> - Routine Extremities Exam Present: pulses intact, normal capillary refill. Absent: cyanosis, clubbing, edema <Gianna Randall - 04/25/21 08:38> - Detailed Lower Extremity Exam Top foot image: 1 - Right medial 2nd toe brown scab over PIPJ. There was pain to palpation. The skin was cleansed with betadine.No debridement done today. Still has small scab in place. There was underlying ulceration noted. It appears the infection (x-ray gas) was localized under the scab but did not extend deep. The ulcer was 50% granular and 50% yellow fibrotic, 3x2x0.1cm. <Gianna Randall - 04/25/21 08:38> - Routine Skin Exam Present: warm, wounds (right 2nd toe ulcer,& scab). Absent: rash <Gianna Randall - 04/25/21 08:38> - Routine Neurological Exam Present: alert, oriented X3, normal speech <Gianna Randall - 04/25/21 08:38> - Routine Psychiatric Exam Present: cooperative, anxious <Gianna Randall - 04/25/21 08:38> - Urinary Catheter Management Mcmahan Cath placed during this visit: no <YadiraTaniya - 04/25/21 14:15> no <Gianna Randall - 04/25/21 08:38> Progress Note: A&P (1) Abdominal mass Status: Acute (2) Acute diverticulitis Status: Acute (3) Ileus Status: Acute (4) Leukocytosis Status: Acute (5) Hypokalemia Status: Acute (6) Soft tissue tumor of right foot Status: Acute (7) Right second toe ulcer Status: Acute (8) Ulcer of right second toe, limited to breakdown of skin Status: Acute <Gianna Randall - 04/25/21 08:19> (1) Abdominal mass Status: Acute (2) Acute diverticulitis Status: Acute (3) Ileus Status: Acute (4) Leukocytosis Status: Acute (5) Hypokalemia Status: Acute (6) Soft tissue tumor of right foot Status: Acute (7) Right second toe ulcer Status: Acute (8) Ulcer of right second toe, limited to breakdown of skin Status: Acute <Taniya May - 04/25/21 14:15> Assessment and Plan for All Diagnoses:: Patient seen and evaluated. 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 Agree with documentation. Orders per Dr. May. <Taniya May - 04/25/21 14:15> Laboratory Tests 04/22/21 0
--- NOTE | 2021-04-25 08:27 | P.PN_ITS ---
Subjective Patient reports: no new complaints Narrative: Patient has tolerated sips of clear liquids without difficulty. No nausea. Still with significant burping and belching. Progress Note: A&P (1) Abdominal mass Status: Acute (2) Acute diverticulitis Status: Acute Assessment and plan: Clear liquid diet. Will give some simethicone. (3) Ileus Status: Acute (4) Leukocytosis Status: Acute (5) Hypokalemia Status: Acute (6) Soft tissue tumor of right foot Status: Acute (7) Right second toe ulcer Status: Acute (8) Ulcer of right second toe, limited to breakdown of skin Status: Acute Exam Vital signs and Labs for Last 24 Hours: Temp Pulse Resp BP Pulse Ox 98.4 F 74 16 103/50 L 95 04/25/21 08:00 04/25/21 08:00 04/25/21 08:00 04/25/21 08:00 04/25/21 08:00 Laboratory Results - last 24 hr 04/24/21 06:15: Sodium 134 L, Potassium 3.6, Chloride 99, Carbon Dioxide 32 H, Anion Gap 6.6, BUN 7 D, Creatinine 0.50 L, Estimated Creat Clear 93, Estimated GFR 127, Est GFR ( Amer) 153, Glucose 116 H, Calcium 7.4 L 04/24/21 06:19: WBC 11.7 H, RBC 3.39 L, Hgb 9.9 L, Hct 29.8 L, MCV 88.1, MCH 29.3, MCHC 33.3, RDW 15.0, Plt Count 269, MPV 9.2, Neut % (Auto) 80.7 H, Lymph % (Auto) 12.3, [place] % (Auto) 4.2, Eos % (Auto) 2.5, Baso % (Auto) 0.2, Neut # (Auto) 9.4 H, Lymph # (Auto) 1.4, [place] # (Auto) 0.5, Eos # (Auto) 0.3, Baso # (Auto) 0.0 04/24/21 11:38: POC Glucose 111 H 04/24/21 19:47: POC Glucose 107 04/25/21 05:07: POC Glucose 122 H 04/25/21 06:38: WBC 10.8, RBC 3.09 L, Hgb 8.8 L, Hct 27.1 L, MCV 87.7, MCH 28.3, MCHC 32.3, RDW 15.1, Plt Count 311, MPV 8.7, Neut % (Auto) 80.4 H, Lymph % (Auto) 12.1, [place] % (Auto) 5.2, Eos % (Auto) 1.9, Baso % (Auto) 0.4, Neut # (Auto) 8.7 H, Lymph # (Auto) 1.3, [place] # (Auto) 0.6, Eos # (Auto) 0.2, Baso # (Auto) 0.0 04/25/21 06:38: Sodium 134 L, Potassium 3.0 L, Chloride 102, Carbon Dioxide 29, Anion Gap 6.0, BUN 4 L D, Creatinine 0.50 L, Estimated Creat Clear 184, Estimated GFR 127, Est GFR ( Amer) 153, Glucose 120 H, Calcium 7.3 L I & O for Last 24 hours: Intake & Output 04/22/21 04/23/21 04/24/21 04/25/21 11:59 11:59 11:59 11:59 Intake Total 3419 / 3419 2078 / 2078 1701 / 1701 1547 / 1547 Output Total 370 / 370 2350 / 2350 1400 / 1400 Balance 3049 / 3049 -272 / -272 301 / 301 1547 / 1547 Weight 236 lb 7 oz 231 lb 229 lb 7 oz 210 lb Microbiology Reports for the Last 24 Hours: Microbiology 04/22/21 11:20 Toe,Second Right Gram Stain - Final 04/22/21 11:20 Toe,Second Right Surgical Biopsy Culture - Preliminary Klebsiella oxytoca 04/22/21 11:20 Toe,Second Right Gram Stain - Final 04/22/21 11:20 Toe,Second Right Wound Culture - Preliminary - *Routine Abdominal Exam Present: soft, ostomy Comments: Excellent gas output from the colostomy
--- NOTE | 2021-04-25 09:20 | CA_ITS ---
APPROVED REPORT EXAM: Comprehensive 2D, Doppler, and color-flow Echocardiogram Boarding Room Fixer: Stacy Gaitan RVT Ht: 5 ft 1 in Wt: 210lbs BSA: 1.93 BP: 103/50 mmHg Indications: EDEMA,HTN,S/P BOWEL RESECTION 2D Dimensions LVOT 2.06 cm (M/F) 1.5-2.5 LA Volume 32.70 mL LA Volume Index 16.94 mL/m2 (M/F) 16-34 M-Mode Dimensions RVDd 3.18 cm (0.9-2.6) LA Diam 4.38 cm (1.9-4.0) LVDd 3.54 cm (3.5-5.7) Ao Diam 2.96 cm (2.0-3.7) LVDs 2.00 cm (3.5-5.7) IVSd 1.32 cm (0.6-1.1) PWd 1.14 cm (0.6-1.1) EF (Teich) 75.70% FS 43.50% EDV (Teich) 52.30 mL TAPSE 1.98 (<1.7) ESV (Teich) 12.70 mL LV Diastology E Decel Time 233.00 (160-240 msec) E/A Ratio 1.0 MED E' 9.20 (< 7 cm/sec) E'/MED E' Ratio 8.35 (>14) LAT E' 13.40 (<10 cm/sec) E/LAT E' Ratio 5.73 (>14) Aortic Valve AO Peak GR. 11.10 mmHg Mitral Valve MV E Max Tian. 77.00 (40-130 cm/s) MV A Velocity 77.00 (40-130 cm/s) E/A Ratio 1.00 MV Decel. Time 233.00 (160-240 ms) MV PHT 68.00 ms Pulmonary Valve PV Peak Velocity 95.00 (50-150 cm/s) Tricuspid Valve TR P. Velocity 207.00 cm/s RAP Estimate 10.00 mmHg RVSP 27.10 mmHg Left Ventricle Left atrium is mildly enlarged, left ventricle is normal size, mild concentric left ventricular hypertrophy, visually estimated ejection fraction 55% with no regional wall motion abnormality, diastolic parameters are inconclusive. Right Ventricle Right atrium and right ventricle mildly enlarged with normal contractility. Aortic Valve Aortic valve is minimally thickened and fibrosed, there is no aortic stenosis or aortic insufficiency. Mitral Valve Mitral valve is grossly normal, there is trace mitral regurgitation. Tricuspid Valve Tricuspid valve grossly normal, there is trace tricuspid regurgitation tricuspid regurgitation (inadequate for calculation of the right ventricular systolic pressure. Pulmonic Valve Pulmonic valve is poorly visualized. Great Vessels Aortic root is normal size. Inferior vena cava is normal size with normal inspiratory collapse. Pericardium No significant pericardial effusion noted. Conclusion 1. Mild biatrial enlargement, normal left ventricular size, visually estimated ejection fraction 55% with no regional wall motion abnormality, diastolic parameters are inconclusive. 2. Mildly enlarged right ventricle with normal contractility. 3. Trace mitral and tricuspid regurgitation. 4. No significant pericardial effusion noted, inferior vena cava is normal size with normal inspiratory collapse. Electronically signed by : Domingo Dimas MD 04/25/2021 21:30:03
[2021-04-25 11:36] VITALS: BP 121/69; PULSE 77; RESP 16; TEMP 37.7; O2SAT 98
--- NOTE | 2021-04-25 14:09 | HMH.ACPN2 ---
Internal Medicine - PN: Subj *Date: 04/25/21 *Time: 08:00 Interval history: pt sitting up in chair states doing ok, still edema. drinking liquids and tolerating them. gas and stool in osotmy Exam Vital signs and Labs for Last 24 Hours: Temp Pulse Resp BP Pulse Ox 99.8 F H 77 16 121/69 98 04/25/21 11:36 04/25/21 11:36 04/25/21 11:36 04/25/21 11:36 04/25/21 11:36 Laboratory Results - last 24 hr 04/24/21 19:47: POC Glucose 107 04/25/21 05:07: POC Glucose 122 H 04/25/21 06:38: WBC 10.8, RBC 3.09 L, Hgb 8.8 L, Hct 27.1 L, MCV 87.7, MCH 28.3, MCHC 32.3, RDW 15.1, Plt Count 311, MPV 8.7, Neut % (Auto) 80.4 H, Lymph % (Auto) 12.1, Casey % (Auto) 5.2, Eos % (Auto) 1.9, Baso % (Auto) 0.4, Neut # (Auto) 8.7 H, Lymph # (Auto) 1.3, Casey # (Auto) 0.6, Eos # (Auto) 0.2, Baso # (Auto) 0.0 04/25/21 06:38: Sodium 134 L, Potassium 3.0 L, Chloride 102, Carbon Dioxide 29, Anion Gap 6.0, BUN 4 L D, Creatinine 0.50 L, Estimated Creat Clear 184, Estimated GFR 127, Est GFR ( Amer) 153, Glucose 120 H, Calcium 7.3 L I & O for Last 24 hours: Intake & Output 04/23/21 04/24/21 04/25/21 04/26/21 11:59 11:59 11:59 11:59 Intake Total 2078 / 2078 1701 / 1701 1547 / 1547 120 / 120 Output Total 2350 / 2350 1400 / 1400 200 / 200 Balance -272 / -272 301 / 301 1547 / 1547 -80 / -80 Weight 231 lb 229 lb 7 oz 210 lb Microbiology Reports for the Last 24 Hours: Microbiology 04/22/21 11:20 Toe,Second Right Gram Stain - Final 04/22/21 11:20 Toe,Second Right Wound Culture - Preliminary Gram Positive Cocci 04/22/21 11:20 Toe,Second Right Gram Stain - Final 04/22/21 11:20 Toe,Second Right Surgical Biopsy Culture - Preliminary Klebsiella oxytoca - Constitutional no acute distress - *Routine HEENT Exam Head: Present: normocephalic Eye: Present: PERRL ENT: Present: mucous membranes moist - *Routine Neck Exam Present: supple. Absent: lymphadenopathy - *Routine Respiratory Exam Present: CTA bilaterally - *Routine Cardiovascular Exam Present: RRR - *Routine Abdominal Exam Present: soft, normoactive bowel sounds, surgical scars, ostomy. Absent: tenderness Comments: healing incision - *Routine Extremities Exam Present: normal capillary refill. Absent: cyanosis, clubbing, edema - *Routine Skin Exam Present: warm, wounds. Absent: rash Comments: dressing to rt foot c/d/i - *Routine Neurological Exam Present: alert, oriented X3 - Routine Psychiatric Exam Present: normal affect Assessment and Plan (1) Abdominal mass Status: Acute Qualifiers: Abdominal location: epigastric Qualified Code(s): R19.06 - Epigastric swelling, mass or lump Category: Medical Code(s): R19.00 - Intra-abdominal and pelvic swelling, mass and lump, unspecified site (2) Acute diverticulitis Status: Acute Category: Medical Code(s): K57.92 - Diverticulitis of intestine, part unspecified, without perforation or abscess without bleeding (3) Ileus Status: Acute Category: Medical Code(s): K56.7 - Ileus, unspecified (4) Leukocytosis Status: Acute Category: Medical Code(s): D72.829 - Elevated white blood cell count, unspecified (5) Hypokalemia Status: Acute Category: Medical Code(s): E87.6 - Hypokalemia (6) Soft tissue tumor of right foot Status: Acute Category: Medical Code(s): D49.2 - Neoplasm of unspecified behavior of bone, soft tissue, and skin (7) Right second toe ulcer Status: Acute Category: Medical Code(s): L97.519 - Non-pressure chronic ulcer of other part of right foot with unspecified severity (8) Ulcer of right second toe, limited to breakdown of skin Status: Acute Category: Medical Code(s): L97.511 - Non-pressure chronic ulcer of other part of right foot limited to breakdown of skin - Assessment and plan all Dx Assessment and Plan for all problems:: rounded with dr jose miguel chua
[2021-04-25 16:00] VITALS: BP 106/64; PULSE 74; RESP 16; TEMP 37.1; O2SAT 98
--- NOTE | 2021-04-25 17:31 | PC.NURSE ---
pt AxOx4, pt has rested some t/o shift, has been up to chair a large part of shift, has required pain medication one time and nausea medication 2 times, remains on room air, has been belching lots t/o shift
[2021-04-25 17:37] LABS: POC Glucose,Bedside 99 (70-110)
[2021-04-25 17:37] LABS: POC Glucose,Bedside 107 (70-110)
[2021-04-25 19:30] VITALS: BP 103/54; PULSE 70; RESP 18; TEMP 37.1; O2SAT 100
[2021-04-25 21:24] LABS: POC Glucose,Bedside 108 (70-110)
[2021-04-25 21:29] VITALS: RESP 16
[2021-04-26 03:28] VITALS: BP 98/51; PULSE 64; RESP 16; TEMP 36.9; O2SAT 96
[2021-04-26 05:00] VITALS: BMI 41.7
[2021-04-26 06:01] LABS: POC Glucose,Bedside 91 (70-110)
[2021-04-26 06:58] VITALS: RESP 20
[2021-04-26 06:58] LABS: Basophils % 0.4 % (0.1-2.0); Eosinophils # 0.2 K/mm3 (0.0-0.4); Eosinophils % 2.3 % (0.1-12.0); Hematocrit 25.5 % (37.0-47.0); Hemoglobin 8.2 g/dL (12.2-16.2); Lymphocytes # 1.6 K/mm3 (0.7-4.5); Lymphocytes % 19.2 % (10-50); Mean Corpuscular HGB Conc 32.1 g/dL (31.8-35.4); Mean Corpuscular Hemoglobin 28.4 pg (27.0-31.2); Mean Corpuscular Volume 88.4 fl (81-99); Mean Platelet Volume 8.5 fl (7.4-10.4); Monocytes # 0.4 K/mm3 (0.1-1.0); Monocytes % 4.9 % (1.7-9.3); Neutrophils # 6.2 K/mm3 (1.8-7.8); Neutrophils % 73.2 % (37.0-80.0); Platelet Count 367 K/mm3 (142-424); Red Blood Count 2.89 M/mm3 (4.20-5.40); Red Cell Distribution Width 15.4 % (11.5-17.5); White Blood Count 8.5 K/mm3 (4.8-10.8)
[2021-04-26 07:06] LABS: Chloride 101 mmol/L (98-107)
[2021-04-26 07:07] LABS: Sodium 136 mmol/L (136-145)
[2021-04-26 07:09] LABS: Blood Urea Nitrogen 3 mg/dl (7-17)
[2021-04-26 07:10] LABS: Anion Gap 6.9 mEq/L (5-15); Calcium 7.6 mg/dl (8.4-10.2); Carbon Dioxide 31 mmol/L (22.0-30.0); Creatinine Clearance Estimated 93 mL/min (50-200); Estimated Glomerular Filt Rate 127 ml/min (>60); GFR (African American) 153 ML/MIN (>60); Glucose 98 mg/dl (74-100)
[2021-04-26 07:33] VITALS: BP 113/62; PULSE 70; RESP 16; TEMP 36.6; O2SAT 96
[2021-04-26 08:00] VITALS: O2SAT 96
[2021-04-26 08:10] LABS: Potassium 2.9 mmoL/L (3.5-5.1)
--- NOTE | 2021-04-26 08:34 | PC.NURSE ---
pt alert and oriented. minimal pain reported. dressing change to abd this shift. tolerated well. passing gas. iv patent and infusing per order. vss. call light in reach. ambulates with assist to bathroom. will continue to monitor
--- NOTE | 2021-04-26 08:38 | HMH.ACPN2 ---
Internal Medicine - PN: Subj *Date: 04/26/21 *Time: 09:12 Interval history: 48-year-old female patient sitting up in bed she denies any respiratory distress, chest pain, or pain during the night. Colostomy is with stool and gas. She reports tolerating a clear liquid diet with with no difficulty, surgery has seen and advanced to full liquids. Exam Vital signs and Labs for Last 24 Hours: Temp Pulse Resp BP Pulse Ox 97.9 F 70 16 113/62 96 04/26/21 07:33 04/26/21 07:33 04/26/21 07:33 04/26/21 07:33 04/26/21 07:33 Laboratory Results - last 24 hr 04/25/21 11:39: POC Glucose 107 04/25/21 16:40: POC Glucose 99 04/25/21 21:13: POC Glucose 108 04/26/21 05:53: POC Glucose 91 04/26/21 06:37: WBC 8.5, RBC 2.89 L, Hgb 8.2 L, Hct 25.5 L, MCV 88.4, MCH 28.4, MCHC 32.1, RDW 15.4, Plt Count 367, MPV 8.5, Neut % (Auto) 73.2, Lymph % (Auto) 19.2, Hartley % (Auto) 4.9, Eos % (Auto) 2.3, Baso % (Auto) 0.4, Neut # (Auto) 6.2, Lymph # (Auto) 1.6, Hartley # (Auto) 0.4, Eos # (Auto) 0.2, Baso # (Auto) 0.0 04/26/21 06:37: Sodium 136, Potassium 2.9 L*, Chloride 101, Carbon Dioxide 31 H, Anion Gap 6.9, BUN 3 L, Creatinine 0.50 L, Estimated Creat Clear 93, Estimated GFR 127, Est GFR ( Amer) 153, Glucose 98, Calcium 7.6 L I & O for Last 24 hours: Intake & Output 04/23/21 04/24/21 04/25/21 04/26/21 23:59 23:59 23:59 23:59 Intake Total 900 / 900 1941 / 1941 1547 / 1647 735 / 735 Output Total 1700 / 1700 400 / 400 1650 / 1650 500 / 500 Balance -800 / -800 1541 / 1541 -103 / -3 235 / 235 Weight 231 lb 229 lb 7 oz 210 lb 221 lb 1 oz Microbiology Reports for the Last 24 Hours: Microbiology 04/22/21 11:20 Toe,Second Right Gram Stain - Final 04/22/21 11:20 Toe,Second Right Wound Culture - Preliminary Gram Positive Cocci 04/22/21 11:20 Toe,Second Right Gram Stain - Final 04/22/21 11:20 Toe,Second Right Surgical Biopsy Culture - Preliminary Klebsiella oxytoca - Constitutional no acute distress - *Routine HEENT Exam Head: Present: normocephalic Eye: Present: EOMI ENT: Present: mucous membranes moist - *Routine Neck Exam Present: supple, trachea midline. Absent: tracheal deviation - *Routine Respiratory Exam Present: CTA bilaterally. Absent: accessory muscle use - *Routine Cardiovascular Exam Present: RRR - *Routine Abdominal Exam Present: soft, normoactive bowel sounds, ostomy - *Routine Extremities Exam Present: edema, full ROM, pulses intact. Absent: cyanosis, clubbing, calf tenderness - *Routine Skin Exam Present: dry, warm, wounds. Absent: erythema Comments: dressing to rt foot c/d/i - *Routine Neurological Exam Present: alert, oriented X3, CN II-XII intact. Absent: motor deficit, altered mental status - Routine Psychiatric Exam Present: normal affect, normal thought process. Absent: auditory hallucinations, visual hallucinations Assessment and Plan (1) Abdominal mass Status: Acute Qualifiers: Abdominal location: epigastric Qualified Code(s): R19.06 - Epigastric swelling, mass or lump Category: Medical Code(s): R19.00 - Intra-abdominal and pelvic swelling, mass and lump, unspecified site (2) Acute diverticulitis Status: Acute Category: Medical Code(s): K57.92 - Diverticulitis of intestine, part unspecified, without perforation or abscess without bleeding (3) Ileus Status: Acute Category: Medical Code(s): K56.7 - Ileus, unspecified (4) Leukocytosis Status: Acute Category: Medical Code(s): D72.829 - Elevated white blood cell count, unspecified (5) Hypokalemia Status: Acute Category: Medical Code(s): E87.6 - Hypokalemia (6) Soft tissue tumor of right foot Status: Acute Category: Medical Code(s): D49.2 - Neoplasm of unspecified behavior of bone, soft tissue, and skin (7) Right second toe ulcer Status: Acute Category: Medical Code(s): L97.519 - Non-pressure chr
--- NOTE | 2021-04-26 09:19 | PC.NURSE ---
0809-spoke to meredith in the lab regarding critical potassium. name, , and room number verified 0819- reported critical to MD Bull during rounds. NNO
--- NOTE | 2021-04-26 10:40 | XR_ITS ---
PROCEDURE INFORMATION: Exam: XR Chest Exam date and time: 04/26/2021 10:40 AM Age: 56 years old Clinical indication: Device placement; Picc; Additional info: Confirm picc line placement TECHNIQUE: Imaging protocol: XR of the chest. Views: 1 view. COMPARISON: CT ANGIO CHEST PE PROTOCOL 04/22/2021 10:05 AM FINDINGS: Tubes, catheters and devices: Left PICC line catheter tip in the mid to distal superior vena cava. Lungs: Unremarkable. No consolidation. Pleural spaces: Unremarkable. No pleural effusion. No pneumothorax. Heart/Mediastinum: Unremarkable. No cardiomegaly. Diaphragm: Stable right hemidiaphragm elevation. Bones/joints: No acute findings. IMPRESSION: Left PICC line catheter tip in the superior vena cava.
--- NOTE | 2021-04-26 10:41 | HMH.GSPN ---
Subjective Patient reports: no new complaints Narrative: Tolerating clear liquids Progress Note: A&P (1) Abdominal mass Status: Acute (2) Acute diverticulitis Status: Acute (3) Ileus Status: Acute (4) Leukocytosis Status: Acute (5) Hypokalemia Status: Acute (6) Soft tissue tumor of right foot Status: Acute (7) Right second toe ulcer Status: Acute (8) Ulcer of right second toe, limited to breakdown of skin Status: Acute Assessment and Plan for All Diagnoses:: Advance to full liquids. Consult for PICC line likely for continued IV Invanz for a total of 14 days postop. Discharge planning Exam Vital signs and Labs for Last 24 Hours: Temp Pulse Resp BP Pulse Ox 97.9 F 70 16 113/62 96 04/26/21 07:33 04/26/21 07:33 04/26/21 07:33 04/26/21 07:33 04/26/21 08:00 Laboratory Results - last 24 hr 04/25/21 11:39: POC Glucose 107 04/25/21 16:40: POC Glucose 99 04/25/21 21:13: POC Glucose 108 04/26/21 05:53: POC Glucose 91 04/26/21 06:37: WBC 8.5, RBC 2.89 L, Hgb 8.2 L, Hct 25.5 L, MCV 88.4, MCH 28.4, MCHC 32.1, RDW 15.4, Plt Count 367, MPV 8.5, Neut % (Auto) 73.2, Lymph % (Auto) 19.2, Bacon % (Auto) 4.9, Eos % (Auto) 2.3, Baso % (Auto) 0.4, Neut # (Auto) 6.2, Lymph # (Auto) 1.6, Bacon # (Auto) 0.4, Eos # (Auto) 0.2, Baso # (Auto) 0.0 04/26/21 06:37: Sodium 136, Potassium 2.9 L*, Chloride 101, Carbon Dioxide 31 H, Anion Gap 6.9, BUN 3 L, Creatinine 0.50 L, Estimated Creat Clear 93, Estimated GFR 127, Est GFR ( Amer) 153, Glucose 98, Calcium 7.6 L I & O for Last 24 hours: Intake & Output 04/23/21 04/24/21 04/25/21 08/10/21 11:59 11:59 11:59 11:59 Intake Total 2078 / 2078 1701 / 1701 1547 / 1547 1075 / 1075 Output Total 2350 / 2350 1400 / 1400 3050 / 3050 Balance -272 / -272 301 / 301 1547 / 1547 -1974 / Weight 231 lb 229 lb 7 oz 210 lb 221 lb 1 oz Microbiology Reports for the Last 24 Hours: Microbiology 04/22/21 11:20 Toe,Second Right Gram Stain - Final 04/22/21 11:20 Toe,Second Right Wound Culture - Final Staphylococcus aureus 04/22/21 11:20 Toe,Second Right Gram Stain - Final 04/22/21 11:20 Toe,Second Right Surgical Biopsy Culture - Preliminary Klebsiella oxytoca - *Routine Abdominal Exam Present: soft, ostomy Comments: Good output from colostomy with stool and gas
--- NOTE | 2021-04-26 10:42 | PC.NURSE ---
Addendum entered by Radha Tello RN 04/26/21 12:20: 1023-pt put into Contact Precautions d/t MRSA diagnosis 1138- spoke to Jessica Randall APRN. New order of vancomycin sent to pharmacy Original Note: 1023- spoke to inderjit in the lab regarding MRSA on toe wound culture. regarding name, and room number 1039-spoke to Theodore in MD May's office. Left a message regarding results. NNO at this time.
[2021-04-26 15:38] VITALS: BP 99/47; PULSE 75; RESP 15; TEMP 37.4; O2SAT 99
[2021-04-26 18:15] LABS: POC Glucose,Bedside 110 (70-110)
--- NOTE | 2021-04-26 19:36 | PC.NURSE ---
Abd incision dressing: open areas packed wet to dry ABD pads applied perforated tape Right foot, 2nd toe: betadine rinsed then dried silver dressing wrapped in kerlix
[2021-04-26 20:00] VITALS: BP 117/51; PULSE 65; RESP 16; TEMP 36.8; O2SAT 96
[2021-04-26 21:10] LABS: POC Glucose,Bedside 80 (70-110)
[2021-04-27] VITALS (16 sets, daily range): BP systolic 100–113; BP diastolic 45–59; PULSE 64–78; RESP 14–18; TEMP 36.5–37.1; O2SAT 94–99; BMI 40.4
--- NOTE | 2021-04-27 00:43 | PC.NURSE ---
She is A&Ox3. She denies pain. She denies passing gas but reports that she is belching. 1+ non-pitting edema to BLE. Midline ABD incision to be changed later this morning. Colostomy present. RICHE limb alert r/t PICC.
[2021-04-27 04:44] LABS: Basophils % 0.3 % (0.1-2.0); Eosinophils # 0.2 K/mm3 (0.0-0.4); Eosinophils % 1.8 % (0.1-12.0); Hematocrit 26.4 % (37.0-47.0); Hemoglobin 8.7 g/dL (12.2-16.2); Lymphocytes # 1.9 K/mm3 (0.7-4.5); Lymphocytes % 18.5 % (10-50); Mean Corpuscular HGB Conc 32.9 g/dL (31.8-35.4); Mean Platelet Volume 8.8 fl (7.4-10.4); Monocytes # 0.5 K/mm3 (0.1-1.0); Monocytes % 5.1 % (1.7-9.3); Neutrophils # 7.6 K/mm3 (1.8-7.8); Neutrophils % 74.4 % (37.0-80.0); Platelet Count 479 K/mm3 (142-424); Red Blood Count 2.99 M/mm3 (4.20-5.40); Red Cell Distribution Width 15.3 % (11.5-17.5); White Blood Count 10.2 K/mm3 (4.8-10.8)
[2021-04-27 04:45] LABS: Anion Gap 6.9 mEq/L (5-15); Blood Urea Nitrogen 3 mg/dl (7-17); Calcium 7.6 mg/dl (8.4-10.2); Carbon Dioxide 34 mmol/L (22.0-30.0); Chloride 97 mmol/L (98-107); Creatinine Clearance Estimated 77 mL/min (50-200); Estimated Glomerular Filt Rate 103 ml/min (>60); GFR (African American) 124 ML/MIN (>60); Glucose 98 mg/dl (74-100); Sodium 135 mmol/L (136-145)
[2021-04-27 04:54] LABS: Potassium 2.9 mmoL/L (3.5-5.1)
[2021-04-27 05:11] LABS: POC Glucose,Bedside 103 (70-110)
--- NOTE | 2021-04-27 07:05 | HMH.GSPN ---
Subjective Narrative: Patient states that she rested quite well. Taking full liquids. Progress Note: A&P (1) Abdominal mass Status: Acute (2) Acute diverticulitis Status: Acute (3) Ileus Status: Acute (4) Leukocytosis Status: Acute (5) Hypokalemia Status: Acute (6) Soft tissue tumor of right foot Status: Acute (7) Right second toe ulcer Status: Acute (8) Ulcer of right second toe, limited to breakdown of skin Status: Acute Assessment and Plan for All Diagnoses:: Discharge planning. Nearly ready for discharge. Check labs. Exam Vital signs and Labs for Last 24 Hours: Temp Pulse Resp BP Pulse Ox 98.4 F 64 16 100/51 L 94 L 04/27/21 04:00 04/27/21 04:00 04/27/21 04:00 04/27/21 04:00 04/27/21 04:00 Laboratory Results - last 24 hr 04/26/21 06:37: Sodium 136, Potassium 2.9 L*, Chloride 101, Carbon Dioxide 31 H, Anion Gap 6.9, BUN 3 L, Creatinine 0.50 L, Estimated Creat Clear 93, Estimated GFR 127, Est GFR ( Amer) 153, Glucose 98, Calcium 7.6 L 04/26/21 18:02: POC Glucose 110 04/26/21 20:53: POC Glucose 80 04/27/21 04:04: POC Glucose 103 04/27/21 04:13: WBC 10.2, RBC 2.99 L, Hgb 8.7 L, Hct 26.4 L, MCV 88.0, MCH 29.0, MCHC 32.9, RDW 15.3, Plt Count 479 H D, MPV 8.8, Neut % (Auto) 74.4, Lymph % (Auto) 18.5, Bradley % (Auto) 5.1, Eos % (Auto) 1.8, Baso % (Auto) 0.3, Neut # (Auto) 7.6, Lymph # (Auto) 1.9, Bradley # (Auto) 0.5, Eos # (Auto) 0.2, Baso # (Auto) 0.0 04/27/21 04:13: Sodium 135 L, Potassium 2.9 L*, Chloride 97 L, Carbon Dioxide 34 H, Anion Gap 6.9, BUN 3 L, Creatinine 0.60, Estimated Creat Clear 77, Estimated GFR 103, Est GFR ( Amer) 124, Glucose 98, Calcium 7.6 L I & O for Last 24 hours: Intake & Output 04/24/21 04/25/21 04/26/21 04/27/21 11:59 11:59 11:59 11:59 Intake Total 1701 / 1701 1547 / 1547 1075 / 1075 1664 / 1664 Output Total 1400 / 1400 3050 / 3050 5200 / 5200 Balance 301 / 301 1547 / 1547 -1974 / -1974 -3536 / -3536 Weight 229 lb 7 oz 210 lb 221 lb 1 oz 214 lb 6 oz Microbiology Reports for the Last 24 Hours: Microbiology 04/22/21 11:20 Toe,Second Right Gram Stain - Final 04/22/21 11:20 Toe,Second Right Wound Culture - Final Staphylococcus aureus - *Routine Abdominal Exam Present: soft, ostomy
--- NOTE | 2021-04-27 12:01 | P.CONPHA_ITS ---
- Pharmacy Consult Date: 04/27/21 Time: 12:01 Referring provider: DR. AGARWAL Reason for Consult:: VANCOMYCIN DOSING Allergies and ADEs:: Allergies Allergy/AdvReac Type Severity Reaction Status Date / Time ALLISON Inhibitors Allergy Verified 02/17/19 15:03 Home Medications:: Home Medications Medication Instructions Recorded Confirmed Type aspirin 81 mg tablet,delayed 81 mg PO DAILY 01/13/19 04/12/21 History release bupropion HCl 150 mg tablet,12 hr 150 mg PO BID #180 each 01/13/19 04/12/21 History sustained-release Naproxen [Naproxen 500mg tab] 500 mg PO BIDP PRN 04/12/21 04/12/21 History Triamterene/Hydrochlorothiazid 1 each PO DAILY 04/12/21 04/12/21 History [Dyazide 37.5-25 Capsule] Verapamil HCl [Verapamil ER] 240 mg PO DAILY 04/12/21 04/12/21 History Height: 1.55 m Weight: 97.239 kg Laboratory Results:: Laboratory Results - last 24 hr 04/26/21 18:02: POC Glucose 110 04/26/21 20:53: POC Glucose 80 04/27/21 04:04: POC Glucose 103 04/27/21 04:13: WBC 10.2, RBC 2.99 L, Hgb 8.7 L, Hct 26.4 L, MCV 88.0, MCH 29.0, MCHC 32.9, RDW 15.3, Plt Count 479 H D, MPV 8.8, Neut % (Auto) 74.4, Lymph % (Auto) 18.5, Glenn % (Auto) 5.1, Eos % (Auto) 1.8, Baso % (Auto) 0.3, Neut # (Auto) 7.6, Lymph # (Auto) 1.9, Glenn # (Auto) 0.5, Eos # (Auto) 0.2, Baso # (Auto) 0.0 04/27/21 04:13: Sodium 135 L, Potassium 2.9 L*, Chloride 97 L, Carbon Dioxide 34 H, Anion Gap 6.9, BUN 3 L, Creatinine 0.60, Estimated Creat Clear 77, Estimated GFR 103, Est GFR ( Amer) 124, Glucose 98, Calcium 7.6 L 04/27/21 11:10: Crossmatch ([facility]) See Detail Medical History: Reports:: Hypertension Denies:: Seizures Assessment and Plan (1) Abdominal mass Status: Acute Qualifiers: Abdominal location: epigastric Qualified Code(s): R19.06 - Epigastric swelling, mass or lump Category: Medical Code(s): R19.00 - Intra-abdominal and pelvic swelling, mass and lump, unspecified site (2) Acute diverticulitis Status: Acute Category: Medical Code(s): K57.92 - Diverticulitis of intestine, part unspecified, without perforation or abscess without bleeding (3) Ileus Status: Acute Category: Medical Code(s): K56.7 - Ileus, unspecified (4) Leukocytosis Status: Acute Category: Medical Code(s): D72.829 - Elevated white blood cell count, unspecified (5) Hypokalemia Status: Acute Category: Medical Code(s): E87.6 - Hypokalemia (6) Soft tissue tumor of right foot Status: Acute Category: Medical Code(s): D49.2 - Neoplasm of unspecified behavior of bone, soft tissue, and skin (7) Right second toe ulcer Status: Acute Category: Medical Code(s): L97.519 - Non-pressure chronic ulcer of other part of right foot with unspecified severity (8) Ulcer of right second toe, limited to breakdown of skin Status: Acute Category: Medical Code(s): L97.511 - Non-pressure chronic ulcer of other part of right foot limited to breakdown of skin
--- NOTE | 2021-04-27 13:05 | HMH.ACPN2 ---
Internal Medicine - PN: Subj *Date: 04/27/21 *Time: 08:00 Interval history: pt sitting up in bed. [id number] doing better. Exam Vital signs and Labs for Last 24 Hours: Temp Pulse Resp BP Pulse Ox 97.7 F 78 16 113/45 L 95 04/27/21 08:00 04/27/21 08:00 04/27/21 08:00 04/27/21 08:00 04/27/21 08:00 Laboratory Results - last 24 hr 04/26/21 18:02: POC Glucose 110 04/26/21 20:53: POC Glucose 80 04/27/21 04:04: POC Glucose 103 04/27/21 04:13: WBC 10.2, RBC 2.99 L, Hgb 8.7 L, Hct 26.4 L, MCV 88.0, MCH 29.0, MCHC 32.9, RDW 15.3, Plt Count 479 H D, MPV 8.8, Neut % (Auto) 74.4, Lymph % (Auto) 18.5, Culberson % (Auto) 5.1, Eos % (Auto) 1.8, Baso % (Auto) 0.3, Neut # (Auto) 7.6, Lymph # (Auto) 1.9, [place] # (Auto) 0.5, Eos # (Auto) 0.2, Baso # (Auto) 0.0 04/27/21 04:13: Sodium 135 L, Potassium 2.9 L*, Chloride 97 L, Carbon Dioxide 34 H, Anion Gap 6.9, BUN 3 L, Creatinine 0.60, Estimated Creat Clear 77, Estimated GFR 103, Est GFR ( Amer) 124, Glucose 98, Calcium 7.6 L 04/27/21 04:13: Blood Type Confirm O Positive 04/27/21 11:10: Blood Type O Positive, Antibody Screen Negative, Crossmatch ([facility]) See Detail I & O for Last 24 hours: Intake & Output 04/25/21 04/26/21 04/27/21 04/28/21 11:59 11:59 11:59 11:59 Intake Total 1547 / 1547 1075 / 1075 1664 / 1664 Output Total 3050 / 3050 5200 / 5200 Balance 1547 / 1547 -1974 / -3536 / -3536 Weight 210 lb 221 lb 1 oz 214 lb 6 oz Microbiology Reports for the Last 24 Hours: Microbiology 04/22/21 11:20 Toe,Second Right Gram Stain - Final 04/22/21 11:20 Toe,Second Right Wound Culture - Final Staphylococcus aureus - Constitutional no acute distress - *Routine HEENT Exam Head: Present: normocephalic Eye: Present: PERRL ENT: Present: mucous membranes moist - *Routine Neck Exam Present: supple. Absent: lymphadenopathy - *Routine Respiratory Exam Present: CTA bilaterally - *Routine Cardiovascular Exam Present: RRR - *Routine Abdominal Exam Present: soft, normoactive bowel sounds, tenderness, ostomy Comments: healing incision and ostomy with stool present - *Routine Extremities Exam Present: edema. Absent: cyanosis, clubbing - *Routine Skin Exam Present: warm, wounds. Absent: rash Comments: dry scab to rt lip - *Routine Neurological Exam Present: alert, oriented X3 Assessment and Plan (1) Abdominal mass Status: Acute Qualifiers: Abdominal location: epigastric Qualified Code(s): R19.06 - Epigastric swelling, mass or lump Category: Medical Code(s): R19.00 - Intra-abdominal and pelvic swelling, mass and lump, unspecified site (2) Acute diverticulitis Status: Acute Category: Medical Code(s): K57.92 - Diverticulitis of intestine, part unspecified, without perforation or abscess without bleeding (3) Ileus Status: Acute Category: Medical Code(s): K56.7 - Ileus, unspecified (4) Leukocytosis Status: Acute Category: Medical Code(s): D72.829 - Elevated white blood cell count, unspecified (5) Hypokalemia Status: Acute Category: Medical Code(s): E87.6 - Hypokalemia (6) Soft tissue tumor of right foot Status: Acute Category: Medical Code(s): D49.2 - Neoplasm of unspecified behavior of bone, soft tissue, and skin (7) Right second toe ulcer Status: Acute Category: Medical Code(s): L97.519 - Non-pressure chronic ulcer of other part of right foot with unspecified severity (8) Ulcer of right second toe, limited to breakdown of skin Status: Acute Category: Medical Code(s): L97.511 - Non-pressure chronic ulcer of other part of right foot limited to breakdown of skin - Assessment and plan all Dx Assessment and Plan for all problems:: rounded with dr gillespie all orders per dr gillespie transfuse 2 units prbc lasix after blood replace kcl stop iv fluids
[2021-04-27 13:06] LABS: POC Glucose,Bedside 95 (70-110)
[2021-04-27 16:23] LABS: POC Glucose,Bedside 98 (70-110)
[2021-04-27 18:32] LABS: Hematocrit 29.7 % (37.0-47.0); Hemoglobin 9.4 g/dL (12.2-16.2)
--- NOTE | 2021-04-27 19:07 | PC.NURSE ---
Pt is a+o x4 and has been pleasant t/o shift. Pt received 1 unit of blood today and tolerated well and VSS. Pt is able to ambulate to bathroom using walker with standby assist. Pt c/o pain 1x during shift and was treated per MAR with successful results. Dressing to 2nd right toe was done by this RN. Dressing CDI. has been at bedside t/o day. Call light within reach. Will continue to monitor.
[2021-04-28 03:37] VITALS: BP 107/57; PULSE 69; RESP 16; TEMP 37.2; O2SAT 93
[2021-04-28 04:30] LABS: Basophils # 0.1 K/mm3 (0-0.2); Basophils % 0.6 % (0.1-2.0); Eosinophils # 0.2 K/mm3 (0.0-0.4); Hematocrit 28.3 % (37.0-47.0); Hemoglobin 9.1 g/dL (12.2-16.2); Lymphocytes # 1.9 K/mm3 (0.7-4.5); Lymphocytes % 20.2 % (10-50); Mean Corpuscular HGB Conc 32.3 g/dL (31.8-35.4); Mean Corpuscular Hemoglobin 28.8 pg (27.0-31.2); Mean Corpuscular Volume 89.1 fl (81-99); Mean Platelet Volume 8.5 fl (7.4-10.4); Monocytes # 0.6 K/mm3 (0.1-1.0); Monocytes % 5.8 % (1.7-9.3); Neutrophils # 6.8 K/mm3 (1.8-7.8); Neutrophils % 71.4 % (37.0-80.0); Platelet Count 502 K/mm3 (142-424); Red Blood Count 3.18 M/mm3 (4.20-5.40); Red Cell Distribution Width 15.6 % (11.5-17.5); White Blood Count 9.5 K/mm3 (4.8-10.8)
[2021-04-28 04:33] LABS: Calcium 7.9 mg/dl (8.4-10.2); Carbon Dioxide 34 mmol/L (22.0-30.0); Chloride 99 mmol/L (98-107); Creatinine Clearance Estimated 157 mL/min (50-200); Estimated Glomerular Filt Rate 103 ml/min (>60); GFR (African American) 124 ML/MIN (>60); Glucose 94 mg/dl (74-100); Sodium 136 mmol/L (136-145)
[2021-04-28 05:00] VITALS: BMI 40.8
[2021-04-28 05:00] LABS: Vancomycin,Trough 16.7 ug/mL (5.0-10.0)
[2021-04-28 05:01] LABS: Blood Urea Nitrogen < 2 mg/dl (7-17)
--- NOTE | 2021-04-28 05:23 | PC.NURSE ---
No s/s of acute distress noted this shift, call light within reach, bed at lowest level for safety; will continue to monitor.
[2021-04-28 06:28] LABS: POC Glucose,Bedside 93 (70-110)
[2021-04-28 07:22] VITALS: BP 111/61; PULSE 72; RESP 15; TEMP 36.6; O2SAT 95
[2021-04-28 08:00] VITALS: PULSE 90
--- NOTE | 2021-04-28 09:25 | P.DS_ITS ---
General - General Admission date:: 04/12/21 Discharge date: 04/28/21 HPI HPI: 55-year-old female who presents with diffuse abdominal pain nausea vomiting and diarrhea for several days. Patient is white blood cell count greater than 20,[address] scan demonstrates concern for contained perforation diverticulitis of the sigmoid colon. She also has partial small bowel stricture versus ileus and with no history of hernia or abdominal surgeries suspect that this is an ileus due to the inflammation. She also has evidence of a mass near the head of the pancreas which will need further imaging. This was discussed with Dr. Fernandez who agreed to consult surgically with medical admission and recommended conservative management at this time with bowel rest and IV Zosyn. Patient was discussed with Dr. Castellon who agreed to admit the patient for further management (Per Dr. Vazquez). 04/12/21 Abd/Pelvis CT: FINDINGS: LOWER THORAX: 7 mm fissural nodule present in the right minor fissure. There are atelectatic changes in the lung bases. There is a 5 mm nodular opacity in the right lung base medially. A small lymph node is present anterior to the left hepatic lobe superiorly. ABDOMEN & PELVIS: Fatty liver. There is a small hyperdense nodule along the anterior aspect of the left hepatic lobe at approximately 8 mm. Mild hepatomegaly at 25 cm transverse slight increased density is present within the gallbladder possibly due to some underlying sludge. Borderline splenomegaly at 13 cm. The adrenal glands have an unremarkable appearance. There is diffuse pancreatic atrophy. Superior to the head of the pancreas posterior to the antrum of the stomach there is a asymmetric area of soft tissue prominence which is contiguous with the caudate lobe of the liver and may then represent some hypertrophy of the liver with fatty sparing. Cannot exclude the possibility of a mass in this region. MRI of the abdomen without and with gadolinium enhancement with hemangioma protocol suggested. This area measures 2.9 cm. There is a 7 mm nonobstructing stone in the lower pole of the left kidney. 4 mm cyst is present in the right kidney. No ureteral calculi. No hydronephrosis. There is diffuse small bowel dilatation beginning in the jejunum and extending distally to the right lower quadrant region where there is a apparent mass at thickened small bowel with some slight increased density within the mesenteric fat. A normal appendix is not identified. There is diffuse colonic diverticulosis. There is stranding of the pericolic fat in the right lower quadrant with a small amount of extra colic gas. There is an air-fluid level with a collection measuring approximately 4 x 3 cm in this region suspicious for a small abscess. Repeat exam with both IV and oral contrast is suggested. The uterus is enlarged with a lobulated contour with areas of coarse calcification consistent with fibroid involvement. No distal free air is evident. There is a small amount fluid in the left pericolic gutter No acute bony findings are apparent. IMPRESSION: 1. There is diffuse haziness of the peritoneal fat in the mid and lower abdomen. There is diffuse colonic diverticulosis with thickening of the sigmoid colon in the right mid lower pelvic region and stranding of the pericolic fat with a small amount loculated extra colic gas at this region along with a 3 x 4 cm fluid collection with air-fluid level consistent with acute diverticulitis with local contained perforation and a small Aletha diverticular abscess. Suggest repeat exam with both IV and oral contr
[2021-04-28 10:22] LABS: Vancomycin,Peak 35.5 ug/ml (11-39)
[2021-04-28 12:00] VITALS: BP 101/75; PULSE 66; RESP 16; TEMP 37.1; O2SAT 97
--- NOTE | 2021-04-28 13:06 | DIET.NUTRFU ---
Consult for colostomy nutrition education received. Pt and family had been provided prior education during stay but additional written and verbal education were provided on a proper diet post colostomy. Pt and family expressed understanding and willingness to follow low fiber diet to begin with a slowly add more fiber into diet. Provided contact name and number and encouraged pt to call with any questions she may after discharge.
== END 2021-04-28 15:37 | disposition home health service (06) | DRG 329 ==
LOC: ER 17:23 → 2ND 19:18 → ICU 04-18 14:07 → 2ND 04-21 13:55
PROVIDERS: Nurse Practitioner Family; Podiatrist; Surgery; Admitting Provider Family Medicine; Emergency Provider Student in an Organized Health Care Education/Training Program; PCP Internal Medicine; Visit Provider Family Medicine
PROC: 0DBN0ZZ Excision of Sigmoid Colon, Open Approach (ICD-10-PCS; CPT 49000; principal; 2021-04-18 12:00)
DX: K57.20 Diverticulitis of large intestine with perforation and abscess without bleeding (principal); K65.8 Other peritonitis; K56.7 Ileus, unspecified; Z20.822 Contact with and (suspected) exposure to COVID-19; I10 Essential (primary) hypertension; E87.6 Hypokalemia; K66.8 Other specified disorders of peritoneum; L98.491 Non-pressure chronic ulcer of skin of other sites limited to breakdown of skin; B96.1 Klebsiella pneumoniae [K. pneumoniae] as the cause of diseases classified elsewhere; D64.9 Anemia, unspecified
CPT/HCPCS: 44144; 11042; 36415; 36569; 71045; 71275; 73630; 74177; 80048; 80053; 80202; 81001; 82150; 82962; 83036; 83605; 83690; 85007; 85014; 85018; 85025; 85651; 86140; 86850; 87040; 87070; 87077; 87186; 87205; 93306; 93970; 94760; 96375; 97110; 97116; 97162; 97530; 99284; C1751; J0131; J1335; J2405; J2543; J3370; P9016; Q9967; U0003

== ENCOUNTER → 2021-05-02 18:02 | Outpatient (CLI) | payer OTHER, SELFPAY ==
[2021-05-02 18:24] LABS: Basophils % 0.4 % (0.1-2.0); Hematocrit 27.2 % (37.0-47.0); Hemoglobin 8.8 g/dL (12.2-16.2); Lymphocytes # 3.4 K/mm3 (0.7-4.5); Lymphocytes % 98.7 % (10-50); Mean Corpuscular HGB Conc 32.5 g/dL (31.8-35.4); Mean Corpuscular Hemoglobin 29.8 pg (27.0-31.2); Mean Corpuscular Volume 91.6 fl (81-99); Mean Platelet Volume 8.2 fl (7.4-10.4); Monocytes % 0.2 % (1.7-9.3); Platelet Count 403 K/mm3 (142-424); Red Blood Count 2.97 M/mm3 (4.20-5.40); Red Cell Distribution Width 15.3 % (11.5-17.5); White Blood Count 3.4 K/mm3 (4.8-10.8)
[2021-05-02 18:39] LABS: Chloride 106 mmol/L (98-107); Potassium 3.5 mmoL/L (3.5-5.1); Sodium 139 mmol/L (136-145)
[2021-05-02 18:42] LABS: Alanine Aminotransferase 11 U/L (12-78); Albumin Level 2.9 g/dl (3.5-5.0); Albumin/Globulin Ratio 0.9 (1.1-1.8); Alkaline Phosphatase 78 U/L (38-126); Anion Gap 5.5 mEq/L (5-15); Aspartate Amino Transferase 23 U/L (14-36); Bilirubin,Total 0.4 mg/dl (0.2-1.3); Blood Urea Nitrogen 5 mg/dl (7-17); Calcium 8.5 mg/dl (8.4-10.2); Carbon Dioxide 31 mmol/L (22.0-30.0); Estimated Glomerular Filt Rate 103 ml/min (>60); GFR (African American) 124 ML/MIN (>60); Globulin 3.3 g/dL (1.3-3.2); Glucose 92 mg/dl (74-100); Neutrophils % 0.6 % (37.0-80.0); Total Protein,Serum 6.2 g/dl (6.3-8.2)
[2021-05-02 18:44] LABS: MANUAL DIFFERENTIAL MANUAL DIFFERENTIAL (MANUAL DIFF)
[2021-05-02 21:25] LABS: Eosinophils % 6 % (0-3); Lymphocytes % 31 % (10-50); Monocytes % 7 % (2-9); Neutrophils % 55 % (42-76); Platelet Estimate Normal; Total Cells Counted 100
== END ==
PROVIDERS: Visit Provider Family Medicine
DX: R10.9 Unspecified abdominal pain (principal); R11.2 Nausea with vomiting, unspecified; R19.7 Diarrhea, unspecified
CPT/HCPCS: 80053; 85007; 85025

== ENCOUNTER → 2021-05-06 10:28 | Outpatient (CLI) | payer OTHER, SELFPAY ==
[2021-05-06 11:30] LABS: Blood Urea Nitrogen 7 mg/dl (7-17); Estimated Glomerular Filt Rate 74 ml/min (>60); GFR (African American) 89 ML/MIN (>60)
== END ==
PROVIDERS: Visit Provider Surgery
DX: Z01.812 Encounter for preprocedural laboratory examination (principal); K57.92 Diverticulitis of intestine, part unspecified, without perforation or abscess without bleeding
CPT/HCPCS: 36415; 82565; 84520

== ENCOUNTER → 2021-05-10 09:32 | Outpatient (CLI) | payer OTHER, SELFPAY ==
--- NOTE | 2021-05-10 09:33 | CT_ITS ---
PROCEDURE: CT ABDOMEN PELVIS W CON CLINICAL INDICATION: abdominal pain Recent surgery for perforated bowel COMPARISON: CT CT ABDOMEN PELVIS W CON from 04/12/[address] ABDOMEN PELVIS W CON from 04/18/2021 TECHNIQUE: IV Contrast: 75ML Isovue 370 Oral Contrast 450ml Redicat Axial images obtained with sagittal and coronal reformats. All CT scans at the facility use one or more dose reduction, viz: automated exposure control, ma/kV adjustment per patient size (including targeted exams where dose is matched to indication, i.e. head), or iterative reconstruction technique. FINDINGS: LOWER THORAX: Small fissural nodule right minor fissure nonspecific may be due to small lymph node at 7 mm. Atelectatic changes are present in the lung bases. No effusions. The right hemidiaphragm is elevated . ABDOMEN & PELVIS: A small hyperdense nodules once again noted along the anterior aspect of the left hepatic lobe segment 3. This measures approximately 6 mm and is not significantly changed from 04/12/2021. The spleen and adrenal glands are unremarkable. There is a 9 mm stone in the lower pole left kidney. 4 mm cyst is present in the right kidney superiorly. No hydronephrosis. No ureteral calculi. There is a slightly heterogeneous masslike lesion in the portal area lying posterior to the pyloric region of the stomach and along the superior aspect of the junction of the body and head of the pancreas. This measures approximately 3.6 cm. This does not appear significantly changed. No intestinal obstruction or free air is evident. There is a left lower quadrant colostomy. Postsurgical changes are present involving the abdominal wall in both the supra umbilical and infraumbilical region. No evidence of incisional abscess. There is colonic diverticulosis. Suture line is present in the abdomen in the mid upper pelvic region. There is mild stranding of the fat around the colostomy site. There is a fluid collection beginning in the left pericolic gutter and extending inferiorly to the left iliac region measuring 6.8 cm transverse and 3.7 cm AP in the iliac region. The collection is smaller than that in the pericolic gutter. There is a thin capsule around this collection. No gas evident within this collection and no significant stranding of the fat around this collection. This could represent a postsurgical seroma. Cannot exclude the possibility of a developing abscess. Much of the sigmoid colon remains. Mild amount of feces is present in the rectal region. The uterus remains enlarged with lobular contour and coarse calcifications consistent with fibroid involvement. Mild amount of stranding of the fat is noted in the lower pelvic region anteriorly IMPRESSION: 1. Postsurgical changes from recent left hemicolectomy with left lower quadrant colostomy. Postsurgical changes abdominal wall. No incisional abscess apparent. 2. Postsurgical fluid collection noted in the left pericolic gutter extending to the left pelvic region. This could be due to a seroma. Cannot exclude the possibility of a developing abscess. Continued follow-up suggested. 3. 3.6 cm mass along the superior aspect of the junction of the body and head of the pancreas. This could represent a pancreatic neuroendocrine tumor. Differential diagnosis would include other types of pancreatic neoplasm or metastatic focus. There is a small enhancing nodule along the liver surface of the left hepatic lobe which could be due to small metastatic lesion. MRI of the pancreas is recommended for further evaluation 4. Other nonacute findings including uterine fibroids and left nephrolithiasis. Dictated by: Alvaro Rojas MD 05/11/2021 07:17 Alvaro Rojas MD
== END ==
LOC: RAD 09:33
PROVIDERS: PCP Internal Medicine; Visit Provider Surgery
DX: K57.92 Diverticulitis of intestine, part unspecified, without perforation or abscess without bleeding (principal)
CPT/HCPCS: 74177; Q9967

== ENCOUNTER → 2021-05-24 20:16 | Outpatient (CLI) | payer OTHER, SELFPAY ==
[2021-05-24 20:27] LABS: Basophils # 0.1 K/mm3 (0-0.2); Basophils % 1.7 % (0.1-2.0); Eosinophils # 0.1 K/mm3 (0.0-0.4); Hematocrit 37.8 % (37.0-47.0); Lymphocytes # 2.2 K/mm3 (0.7-4.5); Lymphocytes % 32.8 % (10-50); Mean Corpuscular HGB Conc 31.7 g/dL (31.8-35.4); Mean Corpuscular Hemoglobin 28.9 pg (27.0-31.2); Mean Corpuscular Volume 91.3 fl (81-99); Mean Platelet Volume 8.7 fl (7.4-10.4); Monocytes # 0.5 K/mm3 (0.1-1.0); Monocytes % 6.9 % (1.7-9.3); Neutrophils # 3.8 K/mm3 (1.8-7.8); Neutrophils % 56.6 % (37.0-80.0); Platelet Count 443 K/mm3 (142-424); Red Blood Count 4.14 M/mm3 (4.20-5.40); Red Cell Distribution Width 14.4 % (11.5-17.5); White Blood Count 6.8 K/mm3 (4.8-10.8)
[2021-05-24 21:19] LABS: Alanine Aminotransferase 19 U/L (12-78); Albumin Level 3.9 g/dl (3.5-5.0); Albumin/Globulin Ratio 1.2 (1.1-1.8); Alkaline Phosphatase 99 U/L (38-126); Amylase 62 U/L (30-110); Anion Gap 15.2 mEq/L (5-15); Aspartate Amino Transferase 25 U/L (14-36); Bilirubin,Total 0.5 mg/dl (0.2-1.3); Blood Urea Nitrogen 16 mg/dl (7-17); Calcium 9.6 mg/dl (8.4-10.2); Carbon Dioxide 29 mmol/L (22.0-30.0); Chloride 98 mmol/L (98-107); Estimated Glomerular Filt Rate 27 ml/min (>60); GFR (African American) 33 ML/MIN (>60); Globulin 3.2 g/dL (1.3-3.2); Glucose 80 mg/dl (74-100); Potassium 3.2 mmoL/L (3.5-5.1); Sodium 139 mmol/L (136-145); Total Protein,Serum 7.1 g/dl (6.3-8.2)
== END ==
PROVIDERS: Visit Provider Internal Medicine
DX: R11.0 Nausea (principal); K86.89 Other specified diseases of pancreas
CPT/HCPCS: 80053; 82150; 85025

== ENCOUNTER → 2021-06-01 16:42 | Outpatient (CLI) | payer OTHER, SELFPAY ==
[2021-06-01 19:38] LABS: Anion Gap 14.3 mEq/L (5-15); Blood Urea Nitrogen 10 mg/dl (7-17); Calcium 9.6 mg/dl (8.4-10.2); Carbon Dioxide 29 mmol/L (22.0-30.0); Chloride 100 mmol/L (98-107); Estimated Glomerular Filt Rate 39 ml/min (>60); GFR (African American) 47 ML/MIN (>60); Glucose 89 mg/dl (74-100); Potassium 3.3 mmoL/L (3.5-5.1); Sodium 140 mmol/L (136-145)
== END ==
PROVIDERS: Visit Provider Internal Medicine
DX: E87.6 Hypokalemia (principal)
CPT/HCPCS: 80048

== ENCOUNTER → 2021-06-06 08:24 | Outpatient (CLI) | payer OTHER, SELFPAY ==
--- NOTE | 2021-06-06 08:24 | MR_ITS ---
PROCEDURE INFORMATION: Exam: MR Abdomen Without and With Contrast Exam date and time: 06/06/2021 8:24 AM Age: 56 years old Clinical indication: Abnormal findings; Abnormal radiologic finding of the abdomen; Radiologic exam and body structure: CT; Prior surgery; Surgery date: 1-6 months; Additional info: Pancreas protocol. Abnormal CT scan 05-10-21. Nausea. 16ml prohance given. Bun: 10 cre: 1.4 gfr: 39 TECHNIQUE: Imaging protocol: MR of the abdomen without and with intravenous contrast. Contrast material: PROHANCE; Contrast volume: 16 ml; Contrast route: IV; COMPARISON: CT ABDOMEN PELVIS W CON 05/10/2021 9:40 AM FINDINGS: Liver: A 6 mm lesion in the left hepatic lobe along the anterior capsule demonstrates early arterial enhancement. Subtle associated increased T2 signal is seen. Subtle decreased T1 signal. Enhancement persists on delayed phases. Its small size limits further characterization. It is indeterminate. Gallbladder and bile ducts: Unremarkable. No stones. No ductal dilation. Pancreas: A lesion in the neck of the pancreas is redemonstrated. This does not appear to arise from the caudate lobe, but does abut the caudate lobe. Series 23 demonstrates apparent claw sign of pancreatic parenchyma. The lesion measures about 34 x 25 mm in transaxial dimensions. It demonstrates increased T2 signal and decreased T1 signal. There is delayed enhancement seen on dynamic imaging that is fairly heterogeneous. Enhancement persists on delayed images compared to background parenchyma. No evidence of restricted diffusion. Pancreatic duct demonstrates normal course and caliber. Spleen: Unremarkable. No splenomegaly. Adrenal glands: Unremarkable. No mass. Kidneys and ureters: Small subcentimeter lesion in the right kidney is most likely a cyst. Stomach and bowel: Visualized stomach and intestines are unremarkable. Intraperitoneal space: No free fluid. Lymph nodes: Mildly prominent retroperitoneal lymph nodes. Soft tissues: Unremarkable. IMPRESSION: 1. A 34 x 25 mm lesion in the neck of the pancreas is favored to represent an adenocarcinoma. This could be confirmed with biopsy. 2. A 6 mm hyperenhancing focus in the left hepatic lobe is indeterminate. It could be a benign lesion such as an atypical hemangioma. Recommend either imaging follow-up to document stability or biopsy. COMMENTS: Consistent with the [employer]'s Incidental Findings Committee white paper (J Am Tamara Radiol 2018): Any incidental renal lesion less than 1 cm or classified as too small to characterize, or any incidental cystic renal lesion characterized as simple-appearing, is likely benign. No follow-up imaging is recommended for these lesions per consensus recommendations based on imaging criteria.
== END ==
PROVIDERS: PCP Internal Medicine; Visit Provider Surgery
DX: K86.89 Other specified diseases of pancreas (principal)
CPT/HCPCS: 74183; 76376; A9576

== ENCOUNTER → 2021-07-01 10:23 | Outpatient (CLI) | payer OTHER, SELFPAY | PROVIDERS: Visit Provider Internal Medicine Gastroenterology | DX: Z20.822 Contact with and (suspected) exposure to COVID-19 (principal) | CPT/HCPCS: C9803; U0003; U0005 ==

== ENCOUNTER → 2021-07-04 13:40 | Outpatient (CLI) | payer OTHER, SELFPAY ==
[2021-07-04 14:16] LABS: Basophils # 0.1 K/mm3 (0-0.2); Eosinophils # 0.2 K/mm3 (0.0-0.4); Eosinophils % 3.4 % (0.1-12.0); Hematocrit 38.6 % (37.0-47.0); Hemoglobin 12.1 g/dL (12.2-16.2); Lymphocytes % 36.6 % (10-50); Mean Corpuscular HGB Conc 31.3 g/dL (31.8-35.4); Mean Corpuscular Hemoglobin 28.2 pg (27.0-31.2); Mean Corpuscular Volume 90.2 fl (81-99); Mean Platelet Volume 7.2 fl (7.4-10.4); Monocytes # 0.3 K/mm3 (0.1-1.0); Monocytes % 4.9 % (1.7-9.3); Platelet Count 353 K/mm3 (142-424); Red Blood Count 4.28 M/mm3 (4.20-5.40); White Blood Count 5.6 K/mm3 (4.8-10.8)
[2021-07-04 14:48] LABS: Anion Gap 12.6 mEq/L (5-15); Blood Urea Nitrogen 9 mg/dl (7-17); Calcium 9.7 mg/dl (8.4-10.2); Carbon Dioxide 30 mmol/L (22.0-30.0); Chloride 104 mmol/L (98-107); Estimated Glomerular Filt Rate 64 ml/min (>60); GFR (African American) 78 ML/MIN (>60); Glucose 97 mg/dl (74-100); Potassium 3.6 mmoL/L (3.5-5.1); Sodium 143 mmol/L (136-145)
== END ==
PROVIDERS: Visit Provider Internal Medicine
DX: I10 Essential (primary) hypertension (principal); E61.1 Iron deficiency; E87.6 Hypokalemia; K86.89 Other specified diseases of pancreas
CPT/HCPCS: 36415; 80048; 85025; C9803; U0003; U0005

== ENCOUNTER → 2021-09-01 09:46 | Outpatient (CLI) | payer OTHER, SELFPAY ==
--- NOTE | 2021-09-01 09:49 | FL_ITS ---
PROCEDURE: FL BARIUM ENEMA CLINICAL INDICATION: MASS OF PANCREAS COMPARISON: CT CT ABDOMEN PELVIS W CON from 05/10/2021 MR MR ABDOMEN WO/W CON from 06/06/2021 FINDINGS: Terrazzo Finisher exam demonstrates somewhat irregular opacities in the pelvis and could be due to residual contrast within sigmoid diverticula. Gastrografin enema was performed through the colostomy. Sixteen [place] Mcmahan catheter was inserted into the colostomy and bulb insufflated. There was very difficult to obtained good colonic distension. There is severe diverticulosis of the distal descending colon. Proximal descending colon has an unremarkable appearance. A diverticulum is noted at the splenic flexure. No obvious annular constricting lesions are apparent. Diverticulosis also noted of the hepatic flexure. No large polypoid filling defects evident. Terminal ileum has an unremarkable appearance and the appendix did fill. IMPRESSION: Severe diverticulosis of the lower descending colon with diverticula also noted at the hepatic flexure and splenic flexure. No obvious annular constricting lesions or large polypoid filling defects. The Gutierrez pouch/distal sigmoid colon and rectum was not interrogated. Dictated by: Alvaro Rojas MD 09/01/2021 12:44 Alvaro Rojas MD in [facility] 09/01/2021 12:44
== END ==
PROVIDERS: PCP Internal Medicine; Visit Provider Surgery
DX: K86.89 Other specified diseases of pancreas (principal)
CPT/HCPCS: 74270

== ENCOUNTER → 2021-09-20 14:59 | Outpatient (CLI) | payer OTHER, SELFPAY | PROVIDERS: PCP Internal Medicine; Visit Provider Nurse Practitioner | DX: Z20.822 Contact with and (suspected) exposure to COVID-19 (principal) | CPT/HCPCS: C9803; U0003; U0005 ==

== ENCOUNTER → 2022-03-24 13:15 | Outpatient (CLI) | payer OTHER, SELFPAY ==
[2022-03-24 14:04] LABS: Basophils # 0.1 K/mm3 (0-0.2); Basophils % 1.6 % (0.1-2.0); Eosinophils # 0.3 K/mm3 (0.0-0.4); Eosinophils % 5.1 % (0.1-12.0); Hematocrit 39.4 % (37.0-47.0); Hemoglobin 12.6 g/dL (12.2-16.2); Lymphocytes # 1.6 K/mm3 (0.7-4.5); Lymphocytes % 27.6 % (10-50); Mean Corpuscular HGB Conc 31.9 g/dL (31.8-35.4); Mean Corpuscular Hemoglobin 29.5 pg (27.0-31.2); Mean Corpuscular Volume 92.3 fl (81-99); Mean Platelet Volume 8.6 fl (7.4-10.4); Monocytes # 0.3 K/mm3 (0.1-1.0); Monocytes % 4.4 % (1.7-9.3); Neutrophils # 3.5 K/mm3 (1.8-7.8); Neutrophils % 61.2 % (37.0-80.0); Platelet Count 344 K/mm3 (142-424); Red Blood Count 4.27 M/mm3 (4.20-5.40); Red Cell Distribution Width 14.4 % (11.5-17.5); White Blood Count 5.8 K/mm3 (4.8-10.8)
[2022-03-24 14:14] LABS: Alanine Aminotransferase 19 U/L (12-78); Albumin Level 3.8 g/dl (3.5-5.0); Albumin/Globulin Ratio 1.6 (1.1-1.8); Alkaline Phosphatase 91 U/L (38-126); Anion Gap 12.9 mEq/L (5-15); Aspartate Amino Transferase 22 U/L (14-36); Bilirubin,Total 0.2 mg/dl (0.2-1.3); Blood Urea Nitrogen 17 mg/dl (7-17); Calcium 9.3 mg/dl (8.4-10.2); Carbon Dioxide 28 mmol/L (22.0-30.0); Chloride 99 mmol/L (98-107); Cholesterol 192 mg/dl (140-200); Estimated Glomerular Filt Rate 64 ml/min (>60); GFR (African American) 78 ML/MIN (>60); Globulin 2.4 g/dL (1.3-3.2); Glucose 83 mg/dl (74-100); HDL Cholesterol 48 mg/dl (40-60); Potassium 3.9 mmoL/L (3.5-5.1); Sodium 136 mmol/L (136-145); Total Protein,Serum 6.2 g/dl (6.3-8.2); Triglycerides 234 mg/dl (30-150); VLDL Cholesterol 47 mg/dL (0-40)
[2022-03-24 14:25] LABS: Direct LDL Cholesterol 100.82 mg/dL (100-129)
== END ==
PROVIDERS: PCP Internal Medicine; Visit Provider Internal Medicine
DX: I10 Essential (primary) hypertension (principal); E78.5 Hyperlipidemia, unspecified; E61.1 Iron deficiency; Z87.19 Personal history of other diseases of the digestive system
CPT/HCPCS: 80053; 80061; 85025